=== PATIENT | male | born 1960 | race Caucasian/White ===

== ENCOUNTER 2016-08-20 18:09 | Emergency (ER) | payer OTHER ==
[~2016-08-20] VITALS: Ht 177.8 cm; Wt 78.2 kg
[2016-08-20 18:59] VITALS: Ht 177.8 cm; Wt 78.2 kg
[2016-08-20] MEDS ORDERED: ONDANSETRON 4 MG INJ IV STA (19:28)
[2016-08-20] MEDS ORDERED: SOD CHLORIDE 0.9% 500 ML IV STA (19:28)
[2016-08-20] MEDS ORDERED: KETOROLAC 15 MG INJ IV STA (19:28)
[2016-08-20 19:30] VITALS: BP 120/83; PULSE 92; RESP 20; TEMP 98.9
[2016-08-20] MEDS ORDERED: DICYCLOMINE 10 MG CAP PO ONE (19:30)
[2016-08-20 20:23] LABS: POTASSIUM 3.1 mmol/L (3.5-5.1)
[2016-08-20 20:26] LABS: CREATININE 0.82 mg/dl (0.61-1.24)
[2016-08-20 20:27] LABS: CALCIUM 8.7 mg/dl (8.4-10.2)
[2016-08-20] MEDS ORDERED: DICY10CA60 PO (20:38)
--- NOTE | 2016-08-20 20:43 | ERD ---
ER Documentation Chief Complaint Date/Time DATE: 08/20/16 TIME: 20:40 Chief Complaint ABD PAIN DIARRHEA, HEADACHE SINCE SATURDAY. HPI Very pleasant 55-year-old male who presents to the emergency room with diarrhea. He describes approximately 48 hours of symptoms including loose watery stools, cramping diffuse abdominal pain. At triage he noted headache but denies this to me. He denies any fevers or chills, no chest pain or shortness of breath, no recent travel, sick contacts or antibiotics. ROS All systems reviewed and are negative except as per history of present illness. Medications Home Meds Active Scripts Dicyclomine Hcl* (Bentyl*) 10 Mg Capsule, 10 MG PO QID Y for abdominal cramping , #30 CAP Prov:DOTTY GARCIA MD 08/20/16 Allergies Allergies: Coded Allergies: No Known Allergy (Unverified , 08/20/16) PMhx/Soc History of Surgery: No Anesthesia Reaction: No Hx Neurological Disorder: No Hx Respiratory Disorders: No Hx Cardiac Disorders: No Hx Psychiatric Problems: No Hx Miscellaneous Medical Probl: No Hx Alcohol Use: No Hx Substance Use: No Hx Tobacco Use: No Smoking Status: Never smoker Physical Exam Vitals Vital Signs Date Time Temp Pulse Resp B/P Pulse Ox O2 Delivery O2 Flow Rate FiO2 08/20/16 19:30 98.9 92 20 120/83 98 Room Air 08/20/16 18:59 99.2 102 18 118/73 100 Physical Exam General: Well developed, well nourished, no acute distress Head: Normocephalic, atraumatic. Eyes: Pupils equally reactive, EOM intact ENT: Moist mucous membranes Neck: Supple, no lymphadenopathy Respiratory: Lungs clear bilaterally, no distress Cardiovascular: RRR, no murmurs, rubs, or gallops Abdominal: Soft, non-tender, non-distended, no peritoneal signs, no tenderness at McBurney's point, no pulsatile mass : Deferred MSK: No edema, no unilateral swelling, 5/5 strength Neurologic: Alert and oriented, moving all extremities, normal speech, no focal weakness, no cerebellar signs Skin: No rash Psych: Normal mood Result Diagram: 08/20/161944 Results 24 hrs Laboratory Tests Test 08/20/16 19:45 Anion Gap 16 Blood Urea Nitrogen 13mg/dl Calcium Level 8.7mg/dl Carbon Dioxide Level 27mmol/L Chloride Level 99mmol/L Creatinine 0.82mg/dl Glucose Level 132mg/dl Potassium Level 3.1mmol/L Sodium Level 139mmol/L Current Medications Medications (Trade) Dose Ordered Sig/Max Route PRN Reason Start Time Stop Time Status Last Admin Dose Admin Sodium Chloride (NS) 500 ml @ 500 mls/hr Q1H STAT IV 08/20/16 19:28 08/20/16 20:27 DC 08/20/16 19:44 Ondansetron HCl (Zofran Inj) 4 mg ONCE STAT IV 08/20/16 19:28 08/20/16 19:29 DC 08/20/16 19:44 Ketorolac Tromethamine (Toradol) 15 mg ONCE STAT IV 08/20/16 19:28 08/20/16 19:29 DC 08/20/16 19:44 Dicyclomine HCl (Bentyl) 10 mg ONCE ONCE PO 08/20/16 19:30 08/20/16 19:31 DC 08/20/16 19:44 Procedures/MDM LAB INTERPRETATION: Slight hypokalemia, otherwise no evidence of dehydration MEDICAL DECISION MAKING: The patient presents with signs and symptoms consistent with likely viral diarrheal illness. He has a benign abdominal exam, no fevers. No evidence of significant dehydration. While the patient is 55 years old he has a benign abdominal exam with better alternative diagnosis. I do not believe this is consistent with acute intra-abdominal process. The patient is otherwise well- appearing, well-hydrated. The patient will benefit from symptom control, electrolyte testing to rule out significant dehydration. ER COURSE: The patient was given IV fluids and symptom control medication. The patient feels better. Repeat abdominal exam benign. The patient is safe for discharge. I did discuss return precautions according worsening symptoms, fevers, bloody diarrhea. I kept the patient and/or family informed of laboratory and diagnostic imaging results throughout the emergency room course. DISPOSITION PLAN: We discussed follow up with the patient's primary care doctor within 24 to 48 hours as needed. We also discussed return to the emergency room for worsening symptoms or worsening condition. Outpatient referral: None required Discharge Medications: Bentyl, I did recommend probiotics Departure Diagnosis: Primary Impression: Diarrhea Diarrhea type: unspecified type Qualified Code: R19.7 - Diarrhea, unspecified type Additional Impression: Abdominal cramping Condition: Stable Patient Instructions: Abdominal Pain, Treating Diarrhea Referrals: [facility] YOU HAVE RECEIVED A MEDICAL SCREENING EXAM AND THE RESULTS INDICATE THAT YOU DO NOT HAVE A CONDITION THAT REQUIRES URGENT TREATMENT IN THE EMERGENCY DEPARTMENT. FURTHER EVALUATION AND TREATMENT OF YOUR CONDITION CAN WAIT UNTIL YOU ARE SEEN IN YOUR DOCTORS OFFICE WITHIN THE NEXT 1-2 DAYS. IT IS YOUR RESPONSIBILITY TO MAKE AN APPOINTMENT FOR FOLOW-UP CARE. IF YOU HAVE A PRIMARY DOCTOR --you should call your primary doctor and schedule an appointment IF YOU DO NOT HAVE A PRIMARY DOCTOR YOU CAN CALL OUR PHYSICIAN REFERRAL HOTLINE AT IF YOU CAN NOT AFFORD TO SEE A PHYSICIAN YOU CAN CHOSE FROM THE FOLLOWING [facility] [address] [facility]. [facility] [address] [facility]. [facility] [address] [facility] [address] [facility] [address] [facility]. [facility] [address] [facility]. [facility] YOU HAVE RECEIVED A MEDICAL SCREENING EXAM AND THE RESULTS INDICATE THAT YOU DO NOT HAVE A CONDITION THAT REQUIRES URGENT TREATMENT IN THE EMERGENCY DEPARTMENT. FURTHER EVALUATION AND TREATMENT OF YOUR CONDITION CAN WAIT UNTIL YOU ARE SEEN IN YOUR DOCTORS OFFICE WITHIN THE NEXT 1-2 DAYS. IT IS YOUR RESPONSIBILITY TO MAKE AN APPOINTMENT FOR FOLOW-UP CARE. IF YOU HAVE A PRIMARY DOCTOR --you should call your primary doctor and schedule and appointment IF YOU DO NOT HAVE A PRIMARY DOCTOR YOU CAN CALL OUR PHYSICIAN REFERRAL HOTLINE AT . IF YOU CAN NOT AFFORD TO SEE A PHYSICIAN YOU CAN CHOSE FROM THE FOLLOWING [facility] INSTITUTIONS: [facility] [address] [place] [address] [facility] [address] [place] [address] [facility] + [facility] [address] [place] [address] Additional Instructions: Call your primary care doctor TOMORROW for an appointment during the next 1 WEEK.Tell the departmental secretary that you were referred from this facility.See the doctor sooner or return here if your condition worsens before your appointment time. DOTTY GARCIA MD Aug 20, 2016 20:43
== END 2016-08-20 20:49 | disposition home or self-care (01) ==
LOC: E/R 18:09
DX: R19.7 Diarrhea, unspecified (principal); R10.84 Generalized abdominal pain
CPT/HCPCS: 36415; 80048; 96361; 96374; 96375; 99284; J1885; J2405; J7040

== ENCOUNTER 2016-08-30 13:45 | Inpatient (IN) | payer OTHER ==
[~2016-08-30] VITALS: Ht 177.8 cm; Wt 85.0 kg
[~2016-08-30 13:45] MED LIST: DICY10CA60 PO
[2016-08-30 14:01] VITALS: Ht 177.8 cm; Wt 85.0 kg
[2016-08-30] MEDS ORDERED: SOD CHLORIDE 0.9% 1,000 ML IV STA (15:46)
--- NOTE | 2016-08-30 16:20 | RADRPT ---
PROCEDURE: XR Chest. CLINICAL INDICATION: Shortness of breath. Cerebrovascular accident. TECHNIQUE: Single frontal view. COMPARISON: None. FINDINGS: The lungs are clear. The heart size is normal. There is no pleural effusion. There is no pneumothorax. IMPRESSION: 1. Normal chest radiograph. RPTAT: QQ .Cedric Kwon MD, MD Date Time Electronically viewed and signed by .Cedric Kwon MD, MD on 08/30/2016 16:20 .R/
[2016-08-30] MEDS ORDERED: ONDANSETRON 4 MG INJ IV PRN ×2 (16:30→22:30)
[2016-08-30] MEDS ORDERED: ACETAMINOPHEN 325 MG TAB PO PRN (16:30)
[2016-08-30 16:36] LABS: ADD SCAN DIFF NO
[2016-08-30 16:39] LABS: ADD UMIC NO; URINE BILIRUBIN (Dip) NEGATIVE (NEGATIVE); URINE BLOOD (Dip) NEGATIVE (NEGATIVE); URINE COLOR LT. YELLOW (YELLOW); URINE GLUCOSE (Dip) NEGATIVE (NEGATIVE); URINE KETONES (Dip) NEGATIVE (NEGATIVE); URINE LEUKOCYTE ESTERASE (Dip) NEGATIVE (NEGATIVE); URINE NITRITE (Dip) NEGATIVE (NEGATIVE); URINE TOTAL PROTEIN (Dip) NEGATIVE (NEGATIVE); URINE UROBILINOGEN (Dip) 1.0 E.U./dL (0.1-1.0)
[2016-08-30 16:52] LABS: CHLORIDE 100 mmol/L (97-110); POTASSIUM 4.2 mmol/L (3.5-5.1); SODIUM 143 mmol/L (135-144)
[2016-08-30 16:55] LABS: ANION GAP 17 (8-16); BLOOD UREA NITROGEN 15 mg/dl (7-20); CARBON DIOXIDE 30 mmol/L (21-31); CREATININE 0.69 mg/dl (0.61-1.24); GLUCOSE 90 mg/dl (70-220)
[2016-08-30 16:56] LABS: CALCIUM 9.5 mg/dl (8.4-10.2)
[2016-08-30 16:58] LABS: INR 0.93; PROTIME 12.5 Sec (12.2-14.2)
[2016-08-30 16:59] LABS: PARTIAL THROMBOPLASTIN TIME 30.6 Sec (25.0-35.0)
[2016-08-30 17:09] LABS: TROPONIN-I < 0.012 ng/ml (0.00-0.12)
[2016-08-30 17:18] LABS: BARBITURATES Negative (NEGATIVE)
--- NOTE | 2016-08-30 17:19 | RADRPT ---
PROCEDURE: CT Brain without contrast. CLINICAL INDICATION: Generalized weakness. Possible stroke. TECHNIQUE: CT scan of the brain was performed on a multidetector high-resolution CT scan. Axial im aging was obtained of the brain without contrast administration. Coronal and sagittal reformatted i mages were obtained from the axial source images. Standard CT scan of the head without contrast prot ocols were performed. The total exam CTDI equals 44.9 mGy and the total exam DLP equals 720.23 mGy-cm. One or more of the following dose reduction techniques were used: - Automated exposure control. - Adjustment of the mA and/or kV according to patient size. Use of iterative reconstruction technique. COMPARISON: None. FINDINGS: The ventricular system and peripheral CSF spaces are unremarkable. Negative for intracranial masses hemorrhages or midline shift. There is dense by basal ganglion calcification. There is calcificat ion of the pineal gland. There is a 3 mm left parafalcine left occipital lobe calcification consiste nt with previous inflammatory disease such as cysticercosis. The vazquez-white matter junction is unrem arkable. Paranasal sinuses visualized are unremarkable. Mastoids are unremarkable. The bones and calvarium are intact. IMPRESSION: 1. Left parafalcine left occipital lobe 3 mm calcification consistent with previous inflammatory di sease such as cysticercosis. 2. No evidence of intracranial masses hemorrhages or midline shift. RPTAT:AAJJ Physician Maritza Date Time Electronically viewed and signed by Physician Maritza on 08/30/2016 17:18 BM/
[2016-08-30 17:22] LABS: BENZODIAZEPINES Negative (NEGATIVE); CANNABINOIDS Negative (NEGATIVE); COCAINE Negative (NEGATIVE); OPIATES Negative (NEGATIVE)
[2016-08-30 17:24] LABS: BASOPHILS % 0.3 % (0.0-2.0); EOSINOPHILS % 0.1 % (0.0-7.0); HEMATOCRIT 45.9 % (42.0-52.0); HEMOGLOBIN 15.3 g/dl (14.0-18.0); LYMPHOCYTES # 1.2 10^3/ul (0.8-2.9); LYMPHOCYTES % 12.2 % (15.0-51.0); MEAN CORPUSCULAR HEMOGLOBIN 31.5 pg (29.0-33.0); MEAN CORPUSCULAR HGB CONC 33.3 g/dl (32.0-37.0); MEAN CORPUSCULAR VOLUME 94.6 fl (82.0-101.0); MEAN PLATELET VOLUME 8.5 fl (7.4-10.4); MONOCYTE # 0.3 10^3/ul (0.3-0.9); NEUTROPHIL # 8.4 10^3/ul (1.6-7.5); NEUTROPHILS % 83.9 % (39.0-77.0); PLATELET COUNT 483 10^3/UL (140-415); RED BLOOD COUNT 4.85 10^6/ul (4.70-6.10); RED CELL DISTRIBUTION WIDTH 12.9 % (11.5-14.5)
--- NOTE | 2016-08-30 17:26 | RADRPT ---
PROCEDURE: CT cervical spine without contrast. CLINICAL INDICATION: Bilateral upper extremity weakness. Numbness. TECHNIQUE: Axial imaging was obtained through the cervical spine using a multi-slice CT scanner. [facility] of the cervical spine without contrast protocols were performed. CTDI: 22.17 and DLP: 436.17. One or more of the following dose reduction techniques were used: - Automated exposure control. - Adjustment of the mA and/or kV according to patient size. Use of iterative reconstruction technique. COMPARISON: None. FINDINGS: There is no evidence of fractures or subluxations. The bony mineralization is normal. No focal bon y blastic or lytic lesions. The posterior elements are intact. Those portions the upper lung poor and airway visualized are unremarkable. No evidence of prevertebral soft tissue swelling. There is moderate degenerate disease and spondylosis at the C5-6 and C6-7 disk levels with correspon ding bilateral neural foraminal narrowing and borderline central spinal canal stenosis. No other le vels of neural foraminal narrowing or central spinal canal stenosis. IMPRESSION: 1. No evidence acute fractures or subluxations. 2. Moderate degenerate disease, at the C5-6 and C6-7 disk level there is moderate degenerate diseas e and spondylosis with bilateral neural foraminal narrowing and borderline central spinal canal sten osis. 3. An MRI of the cervical spine may be helpful for further evaluation. RPTAT:AAJJ Physician Maritza Date Time Electronically viewed and signed by Physician Maritza on 08/30/2016 17:26 BM/
--- NOTE | 2016-08-30 17:56 | ERD ---
ER Documentation Chief Complaint Date/Time DATE: 08/30/16 TIME: 17:56 Chief Complaint BOTH HAND NUMBNESS,GENERALIZED BODY WEAKNESS STARTED YESTERDAY HPI Patient is a 55-year-old male with no medical problems who presents with weakness. The patient said that yesterday he lost strength in his lower extremities bilaterally. He says "I could not get my feet off the floor". He then started today with bilateral upper extremity weakness and says "I cannot open my hands. He also says "I cannot walk". Interestingly he was seen last week on August 20 in the emergency department for diarrhea. His weakness started in his legs and then progressed to his arms. He has no fevers. He tried ibuprofen. He denies pain. He does not know the name of his primary doctor. Upon review of old medical records this is his second visit to the ER since August 20 of this year. ROS All systems reviewed and are negative except as per history of present illness. Medications Home Meds Active Scripts Dicyclomine Hcl* (Bentyl*) 10 Mg Capsule, 10 MG PO QID Y for abdominal cramping , #30 CAP Prov:DOTTY GARCIA MD 08/20/16 Allergies Allergies: Coded Allergies: No Known Allergy (Unverified , 08/20/16) PMhx/Soc Medical and Surgical Hx: pt denies Medical Hx, pt denies Surgical Hx History of Surgery: No Anesthesia Reaction: No Hx Neurological Disorder: No Hx Respiratory Disorders: No Hx Cardiac Disorders: No Hx Psychiatric Problems: No Hx Miscellaneous Medical Probl: No Hx Alcohol Use: No Hx Substance Use: No Hx Tobacco Use: No Smoking Status: Unknown if ever smoked FmHx Family History: diabetes Physical Exam Vitals Vital Signs Date Time Temp Pulse Resp B/P Pulse Ox O2 Delivery O2 Flow Rate FiO2 08/30/16 16:40 86 20 126/87 96 Room Air 08/30/16 14:01 98.0 88 18 133/85 98 Physical Exam Const: No acute distress Head: Atraumatic Eyes: Normal Conjunctiva ENT: Normal External Ears, Nose and Mouth. Neck: Full range of motion..~ No meningismus. Resp: Clear to auscultation bilaterally Cardio: Regular rate and rhythm, no murmurs Abd: Soft, non tender, non distended. 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, patient does complain of numbness diffusely Psych: Normal Mood and Affect Result Diagram: 08/30/16 1630 08/30/16 1630 Results 24 hrs Laboratory Tests Test 08/30/16 16:30 08/30/16 16:32 White Blood Count 10.010^3/ul Red Blood Count 4.8510^6/ul Hemoglobin 15.3g/dl Hematocrit 45.9% Mean Corpuscular Volume 94.6fl Mean Corpuscular Hemoglobin 31.5pg Mean Corpuscular Hemoglobin Concent 33.3g/dl Red Cell Distribution Width 12.9% Platelet Count 64798^3/UL Mean Platelet Volume 8.5fl Neutrophils % 83.9% Lymphocytes % 12.2% Monocytes % 3.0% Eosinophils % 0.1% Basophils % 0.3% Nucleated Red Blood Cells % 0.0/100WBC Neutrophils # 8.410^3/ul Lymphocytes # 1.210^3/ul Monocytes # 0.310^3/ul Eosinophils # 0.010^3/ul Basophils # 0.010^3/ul Nucleated Red Blood Cells # 0.010^3/ul Prothrombin Time 12.5Sec Prothrombin Time Ratio 1.0 INR International Normalized Ratio 0.93 Activated Partial Thromboplast Time 30.6Sec Sodium Level 143mmol/L Potassium Level 4.2mmol/L Chloride Level 100mmol/L Carbon Dioxide Level 30mmol/L Anion Gap 17 Blood Urea Nitrogen 15mg/dl Creatinine 0.69mg/dl Glucose Level 90mg/dl Hemoglobin A1c 5.7% Calcium Level 9.5mg/dl Troponin I < 0.012ng/ml Urine Color LT. YELLOW Urine Clarity CLEAR Urine pH 8.0 Urine Specific [place] 1.020 Urine Ketones NEGATIVE Urine Nitrite NEGATIVE Urine Bilirubin NEGATIVE Urine Urobilinogen 1.0 E.U./dL Urine Leukocyte Esterase NEGATIVE Urine Hemoglobin NEGATIVE Urine Glucose NEGATIVE% Urine Total Protein NEGATIVE Urine Opiates Screen Negative Urine Barbiturates Negative Urine Amphetamines Screen Negative Urine Benzodiazepines Screen Negative Urine Cocaine Screen Negative Urine Cannabinoids Negative Current Medications Medications (Trade) Dose Ordered Sig/Max Route PRN Reason Start Time Stop Time Status Last Admin Dose Admin Sodium Chloride (NS) 1,000 ml @ 1,000 mls/hr Q1H STAT IV 08/30/16 15:46 08/30/16 16:45 DC 08/30/16 15:46 Ondansetron HCl (Zofran Inj) 4 mg BRIDGE ORDER PRN IV NAUSEA AND/OR VOMITING 08/30/16 16:30 08/31/16 16:29 Acetaminophen (Tylenol Tab) 650 mg ER BRIDGE PRN PO MILD PAIN/FEVER 08/30/16 16:30 08/31/16 16:29 Procedures/MDM EKG read by me: Rate/Rhythm: Regular rate and rhythm at a normal rate Intervals: Normal Impression: No evidence of ischemia or arrhythmia Chest x-ray negative per radiology. CT brain shows no intracranial hemorrhage or mass per radiology. CT cervical spine shows no fracture per radiology. 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 He started with a diarrhea 10 days ago which was likely a viral illness which may have caused the Guillain-Butt syndrome. He had weakness of the lower extremities bilaterally which now has progressed to his bilateral upper extremities. At this point I doubt stroke, intracranial hemorrhage, or intracranial mass. I do believe that admission is appropriate. The patient has [employer] insurance and I spoke with Dr. Alvarez who will admit the patient to a medical surgical bed. I also spoke with Dr. Tate from neurology. Departure Diagnosis: Primary Impression: Guillain-Franklin syndrome Additional Impression: Numbness Condition: CHIARA Orourke MD Aug 30, 2016 17:56
--- NOTE | 2016-08-30 20:02 | SP ---
DATE OF PROCEDURE: REFERRING PHYSICIAN: the ER physician. HISTORY OF PRESENT ILLNESS: The patient is a 55-year-old male who was admitted with 2 days of gener alized weakness, both lower and upper extremities, associated with gait difficulty. 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 For the last 2 days he got worsening of his weakness bilateral upper and lower extremities in which he cannot stand up, he cannot walk. In which the patient came to the emergency room for more evaluation and treatment. The patient ment ioned that a week ago, he had diarrhea, in which the patient he checked to the emergency room and di scharged. On 2 days ago, when he started to have weakness, the patient was admitted for more evalua tion and treatment. PHYSICAL EXAMINATION: GENERAL: Today, the patient is alert, awake, oriented for time, place, and person. NEUROLOGIC: Normal speech and normal language. CRANIAL NERVES: Cranial nerve II: Pupils equal on both sides, reactive to light. Cranial nerves I II, IV, and : Extraocular muscles intact. No nystagmus. Cranial nerve V: Equal sensation to fa ce. Cranial nerve VII: Symmetrical face. Cranial nerve VIII: Equal hearing. Cranial nerve IX, X : Elevates palate. XI: Elevates shoulder 5/5. Cranial nerve XII: With straight tongue. HEART: Regular rate and rhythm. LUNGS: Equal breath sounds. ABDOMEN: Soft, relaxed, nondistended. No tenderness. MOTOR: The patient is quadriplegic with scored 3/5 of bilateral upper and lower extremities. SENSA TION: Equal on both sides. COORDINATION: Intact with weakness. ASSESSMENT AND PLAN: 1. The patient is a 55-year-old with new onset of quadriplegia. 2. Possibility of underlying Guillain-Peru syndrome, acute inflammatory demyelinating neuropathy. Will start the patient on IVIG 400 mg/kg for 5 days and see how the patient responds for that. Ask for him for physical therapy and occupational therapy. 3. We will order for him an MRI over his spine, especially cervical spine, to see any spinal cord l esion. Could be a mimic for Guillain-Peru syndrome for this patient. 4. Keep the patient under telemetry eval or ICU and monitor his pulmonary function tests to see abo ut his respiratory muscles. 5. Keep the patient under deep venous thrombosis prophylaxis as well as decubitus ulcer prophylaxis . Again, thank you for asking me to see the patient with you. Dictated By: CANDIEC BATISTA/SHOAIB Conf#: [id number] DID#: [id number]
--- NOTE | 2016-08-30 22:15 | QN ---
Documentation Comment [id number] FRANCISCO GILMORE MD Aug 30, 2016 22:15
[2016-08-30] MEDS ORDERED: NACL 0.9% 3 ML SYG IV SCH (22:30)
[2016-08-30] MEDS ORDERED: DOCUSATE SODIUM 100 MG CAP PO PRN (22:30)
[2016-08-30] MEDS: NS + KCL 20 MEQ 1,000 ML IV SCH (23:57)
[2016-08-31] MEDS: PANTOPRAZOLE 40 MG INJ IV SCH (05:45)
--- NOTE | 2016-08-31 07:30 | HP ---
DATE OF ADMISSION: 08/30/2016 HISTORY OF PRESENT ILLNESS: A 55-year-old male with no significant past medical history claims that he presented to this hospital on 08/20 with diarrhea and gastroenteritis symptoms. The patient at that point had symptoms, and the patient's diarrhea has resolved, but the patient now has developed severe weakness of both upper and lower extremities to the point he is unable to walk and presented to this hospital for further management. Seen in the emergency room, discussed with Dr. Randhawa. The patient's WBC 10, hematocrit 45.9, platelet count of 483. Sodium 143, potassium 4.2. The patient's urine toxicology is negative. UA is negative. The patient had brain CT scan done. Left parafalcine, left occipital lobe 3 mm calcification consistent with previous inflammatory disease such as cysticercosis. No evidence of intracranial masses, hemorrhage or midline shift. Cervical spine shows no evidence of acute fracture or subluxation, moderate degenerative disease at the C5-C6, C6-C7 disk level. There is moderate degenerative disk disease and spondylosis foraminal narrowing and borderline central spinal canal stenosis. The patient's chest x-ray is negative. LABORATORY DATA: Potassium 4.2 and hematocrit 45.9. PAST MEDICAL HISTORY: Status post _. No diabetes, hypertension. ALLERGY HISTORY: NEGATIVE. FAMILY HISTORY: Negative. SOCIAL HISTORY: Negative. MEDICATIONS see list: REVIEW OF SYSTEMS: HEENT: Unremarkable. RESPIRATORY: Unremarkable. CARDIOVASCULAR: Unremarkable. ABDOMEN: Unremarkable. EXTREMITIES: Unremarkable. CENTRAL NERVOUS SYSTEM: The patient has weakness of both upper, lower extremities. Unable to move and walk. PHYSICAL EXAMINATION: GENERAL: The patient is awake, alert, not in any acute respiratory distress. VITAL SIGNS: As mentioned above. HEENT: Head is atraumatic, normocephalic. Pupils are equal, reactive to light. NECK: Supple. There is no JVD. LUNGS: Clear. CARDIOVASCULAR: S1, S2 are normal. ABDOMEN: Soft, nontender. Bowel sounds present. No palpable mass. EXTREMITIES: There is no cyanosis, clubbing or edema. CENTRAL NERVOUS SYSTEM: The patient is awake, alert. Sensation is intact to both upper and lower extremities, but strength in both upper and lower extremities is decreased. IMPRESSION: 1. Acute weakness of both upper, lower extremities. Rule out Guillain-Hyndman syndrome, rule out cervical myelopathy. 2. The patient status post gastroenteritis. Will rule out viral etiology. PLAN: Obtain neurology consultation. CT of the cervical spine will be obtained. The patient will have IV fluid; given DVT prophylaxis, peptic ulcer disease prophylaxis. Other neurological recommendation and workup per Dr. Goodman , who has been informed by Dr. Randhawa of this patient's admission. Dictated By: FRANCISCO GILMORE MD BS/NTS Conf#: [id number] DID#: [id number] [facility]
--- NOTE | 2016-08-31 11:21 | QN ---
Documentation Comment Dr. Catherine, the covering neurologist call me. He would like IVIG ordered for this patient given concern for Guillain-Butt. He recommended 400 mg/kg per dose daily for 5 days. The order has been entered for him. He also recommends MRI imaging of the C, T, L-spine. This is also been ordered. The patient continues to board in the emergency room. DOTTY GARCIA MD Aug 31, 2016 11:21
[2016-08-31] MEDS ORDERED: IMMUNE GLOBULIN (HUMAN) 6 GM INJ IV SCH (11:30)
[2016-08-31 13:08] VITALS: TEMP 99
[2016-08-31 13:37] VITALS: BP 117/73; RESP 20
[2016-08-31 14:00] VITALS: BP 117/73; PULSE 83; RESP 17
--- NOTE | 2016-08-31 15:38 | PN ---
Date/Time of Note Date/Time of Note DATE: 08/31/16 TIME: 15:34 Assessment/Plan VTE Prophylaxis VTE Prophylaxis Intervention: SCD's Lines/Catheters IV C[facility]ter Type (from [facility]): Peripheral IV Urinary Cath still in place: No Assessment/Plan Chief Complaint/Hosp Course 1. Acute weakness of both upper, lower extremities. Rule out Guillain-[place] syndrome, rule out cervical myelopathy. 2. The patient status post gastroenteritis. Will rule out viral etiology, Dr Segura saw the pt Problems: Assessment/Plan 1. DVT prophylaxis 2. Antiviral meds 3. Monitor respiratory drive and heart rate Subjective 24 Hr Interval Summary Constitutional: other (weakness) Eyes: no complaints ENT: no complaints Respiratory: no complaints Cardiovascular: no complaints Gastrointestinal: no complaints Genitourinary: no complaints Musculoskeletal: other (weakness), restricted range of motion Skin: no complaints Exam/Review of Systems Vital Signs Vitals Vital Signs Date Time Temp Pulse Resp B/P Pulse Ox O2 Delivery O2 Flow Rate FiO2 08/31/16 13:37 98.6 87 20 117/73 95 08/31/16 13:08 Room Air Intake and Output 08/30/16 08/30/16 08/31/16 15:00 23:00 07:00 Output Total 250 ml Balance -250 ml Exam Constitutional: alert, oriented Psych: no complaints Head: atraumatic, normocephalic Eyes: nl conjunctiva ENMT: nl external ears & nose, nl lips & teeth, nl nasal mucosa & septum Respiratory: clear to auscultation, normal air movement Cardiovascular: regular rate and rhythm Gastrointestinal: soft Genitourinary - Male: nl penis Musculoskeletal: muscle weakness, range of motion (passive only) Neurological: reflexes (decresed to I) Skin: nl turgor Results Result Diagram: 08/30/16 1630 08/30/16 1630 Results 24 hrs Laboratory Tests Test 08/30/16 16:30 08/30/16 16:32 08/30/16 18:53 White Blood Count 10.0 Red Blood Count 4.85 Hemoglobin 15.3 Hematocrit 45.9 Mean Corpuscular Volume 94.6 Mean Corpuscular Hemoglobin 31.5 Mean Corpuscular Hemoglobin Concent 33.3 Red Cell Distribution Width 12.9 Platelet Count 483 H Mean Platelet Volume 8.5 Neutrophils % 83.9 H Lymphocytes % 12.2 L Monocytes % 3.0 Eosinophils % 0.1 Basophils % 0.3 Nucleated Red Blood Cells % 0.0 Neutrophils # 8.4 H Lymphocytes # 1.2 Monocytes # 0.3 Eosinophils # 0.0 Basophils # 0.0 Nucleated Red Blood Cells # 0.0 Prothrombin Time 12.5 Prothrombin Time Ratio 1.0 INR International Normalized Ratio 0.93 Activated Partial Thromboplast Time 30.6 Sodium Level 143 Potassium Level 4.2 Chloride Level 100 Carbon Dioxide Level 30 Anion Gap 17 H Blood Urea Nitrogen 15 Creatinine 0.69 Glucose Level 90 Hemoglobin A1c 5.7 Calcium Level 9.5 Troponin I < 0.012 Urine Color LT. YELLOW Urine Clarity CLEAR Urine pH 8.0 Urine Specific Lit[place] 1.020 Urine Ketones NEGATIVE Urine Nitrite NEGATIVE Urine Bilirubin NEGATIVE Urine Urobilinogen 1.0 E.U./dL Urine Leukocyte Esterase NEGATIVE Urine Hemoglobin NEGATIVE Urine Glucose NEGATIVE Urine Total Protein NEGATIVE Urine Opiates Screen Negative Urine Barbiturates Negative Urine Amphetamines Screen Negative Urine Benzodiazepines Screen Negative Urine Cocaine Screen Negative Urine Cannabinoids Negative Bedside Glucose 125 Medications Medications Current Medications Potassium Chloride/Sodium Chloride (NS-KCl 20 Meq) 1,000 ml @ 50 mls/hr Q20H IV Last administered on 08/30/16 23:57; Admin Dose 50 MLS/HR; Start 08/30/16 at 22:23 Ondansetron HCl (Zofran Inj) 4 mg Q6H PRN IV NAUSEA AND/OR VOMITING; Start at 22:30 Acetaminophen (Tylenol Tab) 650 mg Q6H PRN PO PAIN LEVEL 1-3 OR FEVER; Start at 22:30 Docusate Sodium (Colace) 100 mg Q12H PRN PO CONSTIPATION; Start 08/30/16 at 22: 30 Pantoprazole (Protonix Iv) 40 mg DAILY@06 IV Last administered on 08/31/16 05: 45; Admin Dose 40 MG; Start 08/31/16 at 06:00 Immune Globulin (Carimune Nf) 34 gm DAILY IV ; Start 08/31/16 at 11:30; Stop at 11:29; Status CHRIS HURT Aug 31, 2016 15:38
[2016-08-31] MEDS: NS + KCL 20 MEQ 1,000 ML IV SCH (17:38)
[2016-08-31 19:54] VITALS: PULSE 75
[2016-08-31 20:00] VITALS: BP 130/85; RESP 16
[2016-08-31 20:06] VITALS: PULSE 93
--- NOTE | 2016-08-31 23:20 | RADRPT ---
PROCEDURE: MR Thoracic Spine. CLINICAL INDICATION: Weakness and numbness. TECHNIQUE: An MRI of the thoracic spine was performed on a 1.5 starr scanner utilizing the followi ng sequences: Sagittal and axial T2 weighted, axial gradient echo, sagittal T1 weighted and sagittal STIR. COMPARISON: No prior studies are available for comparison. FINDINGS: The thoracic kyphosis is maintained. The vertebral body and displaced heights are normal. The nedra ow signal intensity is grossly unremarkable. Foci of T1 and T2 signal hyperintensity within the T 9 and T12 most compatible with vertebral body hemangiomas. No acute fracture or subluxation is seen. The thoracic spinal cord is normal in size and signal intensity. No central canal or neural foramin al narrowing is seen. No paravertebral fluid collection or mass is seen. The visualized portions o f the chest and upper abdomen are grossly unremarkable. IMPRESSION: Unremarkable MRI of the thoracic spine. RPTAT:AAJJ Physician Tiesha Date Time Electronically viewed and signed by Physician Tiesha on 08/31/2016 23:20 TENZIN/
--- NOTE | 2016-08-31 23:30 | RADRPT ---
PROCEDURE: MR Cervical Spine. CLINICAL INDICATION: Bilateral hand weakness. TECHNIQUE: An MRI of the cervical spine was performed on a 1.5 starr scanner utilizing the follow ing sequences: Sagittal and axial T1 weighted, sagittal and axial T2 weighted, sagittal T2 weighted with fat saturation, and axial GRE. COMPARISON: No prior studies are available for comparison. FINDINGS: The visualized posterior fossa contents and brainstem are unremarkable. Normal caliber cervical spi nal cord without intramedullary signal abnormality or syringohydromyelia. The vertebral bodies have normal in height and marrow signal. Preservation of normal cervical lordosis.. The craniocervical junction is unremarkable. C2-3: The disk is normal in height. Fatty marrow degeneration of C2. No disk protrusion . The centr al canal and foramina are adequately patent. C3-4: Disk desiccation and mild loss of disk height disk bulging and right uncovertebral joint spurr ing resulting in moderate right foraminal stenosis without central canal or foraminal stenosis. Mil d left facet joint arthropathy. C4-5: Minimal disk bulging and posterior spondylitic ridging. Uncovertebral joint hypertrophy and hy pertrophy of the facet joints resulting in moderate bilateral foraminal stenosis without central can al stenosis. C5-6: Disk desiccation loss of disk height with circumferential disk bulge and anterior endplate spu rring. Pending degenerative in plate changes. Bilateral uncovertebral joint hypertrophy and mild t o moderate bilateral facet joint arthropathy. Hypertrophy and flavum. This results in severe bilat eral foraminal stenosis and moderate to severe central canal stenosis measuring 6.5 mm in AP dimensi on. C6-7: Disk desiccation and loss of disk height with a partial disk bulging and endplate spurring. F atty degenerative endplate. Broad-based central to left paracentral disk protrusion measuring 12 by 3 mm in AP dimension resulting in moderate to severe central canal stenosis of 6.5 mm asymmetric to the left. Bilateral uncovertebral joint hypertrophy greater on the left. Moderate facet joint arthr opathy resulting in severe bilateral foraminal stenosis left greater than right. C7-T1: The disk is normal in heights. No disk bulge or protrusion. The central canal and foramina ar e adequately patent. No paravertebral soft tissue abnormality. IMPRESSION: 1. Broad-based central to left paracentral disk protrusion at C6-C7 resulting in moderate to severe central canal stenosis and severe bilateral foraminal stenosis. 2. Degenerative disk and spondylitic changes resulting in moderate to severe central canal stenosis and mild to moderate bilateral foraminal stenosis. 3. Multilevel degenerative disk and spondylitic changes resulting in varying degrees of central can al and foraminal stenosis from C3-C4 through C6-C7 as described in detail above. 4. Normal cervical spinal cord signal without syringohydromyelia. RPTAT:AAJJ Vaibhav Huynh Physician Date Time Electronically viewed and signed by Physician Tiesha on 08/31/2016 23:30 TENZIN/
--- NOTE | 2016-08-31 23:36 | RADRPT ---
PROCEDURE: MRI lumbar spine CLINICAL INDICATION: Pain and paresthesias. TECHNIQUE: An MRI of the lumbar spine was performed on a 1.5 starr scanner utilizing the following sequences: Sagittal and axial T1 weighted, sagittal and dual echo axial T2 weighted, and sagittal T 2 weighted with fat saturation. COMPARISON: None. FINDINGS: There is a normal lordosis of the lumbar spine. Small vertebral body hemangiomas at T12. No vertebra l body subluxation is evident. The vertebral bodies are normal in height and signal intensity. The c onus medullaris is visible at the L1 level, and is normal in appearance. T12 - L1: The disk is normal in appearance. The central canal and foramina are adequately patent. L1 - L2: The disk is normal in appearance. The central canal and foramina are adequately patent. L2 - L3: Mild disk desiccation with loss of disk height. Small facet joint effusions. No disk pro trusion. The central canal and foramina are adequately patent. L3 - L4: Disk desiccation without loss of disk height. No disk protrusion or stenosis. Small to m oderate bilateral facet joint effusions and moderate facet joint arthropathy. The central canal and foramina are adequately patent. L4 - L5: Disk desiccation with minimal loss of disk height. Mild grade 1 anterolisthesis of the 2 mm of the L4-L5 with circumferential disk bulging and small broad-based central disk protrusion with horizontal annular fissure. Millimeters in AP dimension of facet joint effusions. L5 - S1: Disk desiccation and loss of disk height fatty degenerative endplate changes of L5. No di sk protrusion or stenosis. Small facet joint effusions. No paraspinal soft tissue abnormality. IMPRESSION: 1. Degenerative disk space narrowing and desiccation at L5-S1 with fatty degenerative endplate rodriguez es small central disk protrusion. No significant central canal or foraminal stenosis. 2. Mild disk desiccation and loss of disk height with grade 1 anterolisthesis of for L5 of 2 mm wit hout disk protrusion or stenosis. 3. Mild multilevel facet joint arthropathy from L2-L3 through L5-S1. RPTAT: AVH Vaibhav Huynh, Physician Date Time Electronically viewed and signed by Physician Tiesha on 08/31/2016 23:36 TENZIN/
[2016-09-01] VITALS (12 sets, daily range): BP systolic 102–124; BP diastolic 63–78; PULSE 66–89; RESP 12–18
[2016-09-01] MEDS: IMMUNE GLOBULIN IV SCH ×2 (00:10→23:25)
[2016-09-01] MEDS: WATER STERILE FOR IV SCH ×2 (00:10→23:25)
--- NOTE | 2016-09-01 05:41 | CONS ---
DATE OF ADMISSION: 08/30/2016 DATE OF CONSULTATION: REFERRING PHYSICIAN: Dr. Alvarez HISTORY OF PRESENT ILLNESS: The patient is a 55-year-old with progressive bilateral upper and lower extremity weakness. The patient had abdominal pain and diarrhea a week prior to his admission in [facility] the patient came to emergency room and left. The patient came with bilateral weakness in which I ordered for him MRI over the spine to evaluation as well as will order for him a lumbar puncture for evaluation of his protein levels as well as the patient might need a nerve conduction study. The patient is still at the ER. PHYSICAL EXAMINATION: GENERAL: On exam today, the patient is alert, awake, following simple commands. CRANIAL NERVES: Cranial nerve II; Pupils equal on both sides, reactive to light. Cranial nerves III , IV, and : Extraocular muscles intact. Cranial nerve V: Equal sensation to face. Cranial nerv e VII: Symmetrical face. Cranial nerve VIII: Decreased hearing bilaterally. Cranial nerve X: El evates palate. Cranial nerve XI: Elevates shoulder 5/5. Cranial nerve XII: With straight tongue. MOTOR: 3 to 4/5. GAIT: Could not assess. HEART: Regular rate and rhythm. LUNGS: Equal breath sounds. ABDOMEN: Soft, relaxed, nondistended, nontender. ASSESSMENT AND PLAN: 1. The patient is a 55-year-old with the possibility of underlying Guillain-[place] syndrome. I am g oing to start the patient on IVIG as well as acute physical therapy and rehabilitation. 2. We will follow up the patient under telemetry for autonomic dysfunction. 3. We will follow up the patient with MRI of his spine to evaluate for transverse myelitis. 4. We will keep the patient under deep venous thrombosis prophylaxis and decubitus ulcer prophylaxi s. Again, thank you for asking me to see the patient with you. Dictated By: CANDICE BATISTA/SHOAIB Conf#: [id number] DID#: [id number]
[2016-09-01] MEDS: PANTOPRAZOLE 40 MG INJ IV SCH (06:00)
[2016-09-01] MEDS: NS + KCL 20 MEQ 1,000 ML IV SCH (14:23)
--- NOTE | 2016-09-01 15:04 | CONS ---
DATE OF ADMISSION: 08/30/2016 DATE OF CONSULTATION: HISTORY OF PRESENT ILLNESS: The patient is a 55-year-old admitted to [facility] w ith progressive weakness, which happened last week and a few days in which the patient got worse, in which he is quadriplegic. We started the patient on IVIG. The patient had an order for an imaging study. The patient has bilateral foraminal stenosis and cervical stenosis with multiple degenerati ve disk disease especially at the cervical area, in which we are going to order for him a neurosurgi jose luis consultation for that. We will keep the patient under physical therapy and occupational therapy . We will continue the patient on IVIG PHYSICAL EXAMINATION: GENERAL: On exam today, the patient is alert, awake, oriented to time, place and person. NEUROLOGIC: Normal speech and normal language. Cranial nerve II: Pupils equal on both sides, reac tive to light. Cranial nerves III, IV and : Extraocular muscles intact. No nystagmus. Cranial nerve V: Equal sensation to face. Cranial nerve VII: Symmetrical face. Cranial nerve VIII: Decr eased hearing bilaterally. Cranial nerves IX and X: Elevates palate. Cranial nerve XI: Elevates shoulder 5/5. Cranial nerve XII: With straight tongue. Motor: Bilateral upper and lower extremi ty is 4/5 in which the patient has some improvement since he came per his family. ASSESSMENT AND PLAN: 1. The fact that the patient had diarrhea before followed by the generalized weakness, more G uillain-[place] syndrome, I am going to order for him a lumbar puncture. 2. Possibility of underlying cervical radiculopathy with spinal stenosis; however, there is no myel opathy reported by imaging MRI. We will follow up the patient with neurosurgery consult for more ev aluation and comment about his status. 3. We will keep the patient under physical therapy and occupational therapy for now and keep the pa tient under deep venous thrombosis prophylaxis as well as decubitus ulcer prophylaxis. Again, thank you for asking me to see the patient with you. Dictated By: CANDICE BATISTA/SHOAIB Conf#: [id number] DID#: [id number]
--- NOTE | 2016-09-01 17:34 | PN ---
Date/Time of Note Date/Time of Note DATE: 09/01/16 TIME: 17:28 Assessment/Plan VTE Prophylaxis VTE Prophylaxis Intervention: SCD's Lines/Catheters IV Catheter Type (from Nrsg): Peripheral IV Central line still needed: Yes Urinary Cath still in place: No Assessment/Plan Chief Complaint/Hosp Course 1. Acute weakness of both upper, lower extremities. Rule out Guillain-[place] syndrome, rule out cervical myelopathy. MRI done improved 2. The patient status post gastroenteritis. Dr Segura saw the pt Problems: Assessment/Plan 1. Contnue antiviral meds Subjective 24 Hr Interval Summary Constitutional: improved Eyes: no complaints ENT: no complaints Musculoskeletal: other (ipr) Neurologic: no complaints Exam/Review of Systems Vital Signs Vitals Vital Signs Date Time Temp Pulse Resp B/P Pulse Ox O2 Delivery O2 Flow Rate FiO2 09/01/16 16:21 98.2 75 18 119/78 98 08/31/16 14:00 Room Air Intake and Output 08/31/16 08/31/16 09/01/16 15:00 23:00 07:00 Intake Total 600 ml 550 ml Output Total 400 ml Balance 200 ml 550 ml Exam Constitutional: alert Psych: no complaints Head: normocephalic Eyes: nl conjunctiva Cardiovascular: regular rate and rhythm Gastrointestinal: soft Genitourinary - Male: nl penis Extremities: other Results Result Diagram: 08/30/16 1630 08/30/16 1630 Medications Medications Current Medications Potassium Chloride/Sodium Chloride (NS-KCl 20 Meq) 1,000 ml @ 50 mls/hr Q20H IV Last administered on 08/31/16 17:38; Admin Dose 50 MLS/HR; Start 08/30/16 at 22:23 Ondansetron HCl (Zofran Inj) 4 mg Q6H PRN IV NAUSEA AND/OR VOMITING; Start at 22:30 Acetaminophen (Tylenol Tab) 650 mg Q6H PRN PO PAIN LEVEL 1-3 OR FEVER; Start at 22:30 Docusate Sodium (Colace) 100 mg Q12H PRN PO CONSTIPATION; Start 08/30/16 at 22: 30 Pantoprazole 40 mg 40 mg DAILY@06 IV Last administered on 08/31/16 05:45; Admin Dose 40 MG; Start 08/31/16 at 06:00 Immune Globulin/ Sterile Water (Carimune Nf/ Water Sterile For Inj) 850 ml @ 60 mls/hr Q24H IV Last administered on 09/01/16 00:10; Admin Dose 60 MLS/HR; Start 08/31/16 at 23:30; Stop 09/05/16 at 13:39 CHRIS HERNANDEZ Sep 01, 2016 17:34
[2016-09-01] MEDS: ACETAMINOPHEN 325 MG TAB PO PRN (23:26)
[2016-09-02] VITALS (14 sets, daily range): BP systolic 114–145; BP diastolic 75–89; PULSE 67–91; RESP 18–20
[2016-09-02] MEDS: PANTOPRAZOLE 40 MG INJ IV SCH (06:20)
[2016-09-02] MEDS: NS + KCL 20 MEQ 1,000 ML IV SCH (10:19)
--- NOTE | 2016-09-02 16:37 | PN ---
Date/Time of Note Date/Time of Note DATE: 09/02/16 TIME: 16:36 Assessment/Plan VTE Prophylaxis VTE Prophylaxis Intervention: other Lines/Catheters IV Catheter Type (from Nrs): Peripheral IV Urinary Cath still in place: No Assessment/Plan Chief Complaint/Hosp Course POSS GBSYNDROME DDD PLAN PER NEURO Problems: Subjective 24 Hr Interval Summary ENT: no complaints Respiratory: no complaints Cardiovascular: no complaints Neurologic: other (WEAKNESS IS BETTER) Exam/Review of Systems Vital Signs Vitals Vital Signs Date Time Temp Pulse Resp B/P Pulse Ox O2 Delivery O2 Flow Rate FiO2 09/02/16 16:32 98.0 86 18 127/89 89 08/31/16 14:00 Room Air Intake and Output 09/01/16 09/01/16 09/02/16 15:00 23:00 07:00 Intake Total 800 ml 350 ml Balance 800 ml 350 ml Exam Respiratory: clear to auscultation Cardiovascular: regular rate and rhythm Gastrointestinal: soft Musculoskeletal: nl extremities to inspection Extremities: normal pulses Results Result Diagram: 08/30/16 1630 08/30/16 1630 Medications Medications Current Medications Potassium Chloride/Sodium Chloride (NS-KCl 20 Meq) 1,000 ml @ 50 mls/hr Q20H IV Last administered on 09/02/16 10:19; Admin Dose 50 MLS/HR; Start 08/30/16 at 22:23 Ondansetron HCl (Zofran Inj) 4 mg Q6H PRN IV NAUSEA AND/OR VOMITING; Start at 22:30 Acetaminophen (Tylenol Tab) 650 mg Q6H PRN PO PAIN LEVEL 1-3 OR FEVER Last administered on 09/01/16 23:26; Admin Dose 650 MG; Start 08/30/16 at 22:30 Docusate Sodium (Colace) 100 mg Q12H PRN PO CONSTIPATION; Start 08/30/16 at 22: 30 Pantoprazole 40 mg 40 mg DAILY@06 IV Last administered on 09/02/16 06:20; Admin Dose 40 MG; Start 08/31/16 at 06:00 Immune Globulin/ Sterile Water (Carimune Nf/ Water Sterile For Inj) 850 ml @ 60 mls/hr Q24H IV Last administered on 09/01/16 23:25; Admin Dose 60 MLS/HR; Start 08/31/16 at 23:30; Stop 3/29/17 at 13:39 FRANCISCO GILMORE MD Sep 02, 2016 16:37
--- NOTE | 2016-09-02 17:39 | SP ---
DATE OF PROCEDURE: REFERRING PHYSICIAN: Dr. Alvarez Thank you for asking me to see the patient with you. HISTORY OF PRESENT ILLNESS: The patient is a 55-year-old male who was admitted to [facility] with bilateral upper and lower extremity weakness with quadriparesis, in which the patie nt had diarrhea in the past week prior in which the patient getting worse over time, and which IVIG is started PHYSICAL EXAMINATION: GENERAL: The patient is alert, awake, oriented, following simple commands. CRANIAL NERVES: Cranial nerve II: Pupils equal on both sides, reactive to light. Cranial nerves I II, IV, and : Extraocular muscles intact. Cranial nerve V: Equal sensation to face. Cranial ne rve VII: Symmetrical face. Cranial nerve VIII: Decreased hearing bilaterally. Cranial nerve X: Elevates palate. Cranial XI: Elevates shoulder 5/5. Cranial nerve XII: With straight tongue. 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 Bilateral upper extremity is scored 4/5, bilateral lower extremi ty scored 4/5. GAIT: Difficult to balance himself with ambulation. ASSESSMENT AND PLAN: 1. The patient is a 55-year-old male with a history of underlying Guillain-[place] syndrome. We star jaky him on IVIG and will keep the patient under telemetry from now. 2. Lumbosacral cervical area with some stenosis. Follow up the patient with the neurosurgeon for m ore evaluation and treatment. 2. Bilateral upper and lower extremity weakness. Follow up the patient with physical therapy and r ehabilitation. 3. I counseled the patient and his daughter about his condition, the status and the medication and treatment and side effect. Again, thank you for asking me to see the patient with you. Dictated By: CANDICE BATISTA/SHOAIB Conf#: [id number] DID#: [id number]
[2016-09-02] MEDS: IMMUNE GLOBULIN IV SCH (23:31)
[2016-09-02] MEDS: WATER STERILE FOR IV SCH (23:31)
[2016-09-03] VITALS (11 sets, daily range): BP systolic 98–137; BP diastolic 50–85; PULSE 60–91; RESP 18–20
[2016-09-03] MEDS: PANTOPRAZOLE (EC) 40 MG TAB PO SCH (06:09)
[2016-09-03] MEDS: NS + KCL 20 MEQ 1,000 ML IV SCH (08:35)
[2016-09-03] MEDS: HYDROCODONE/APAP (5/325) TAB PO PRN ×2 (10:32→23:33)
--- NOTE | 2016-09-03 17:54 | SP ---
DATE OF PROCEDURE: 09/03/2016 REFERRING PHYSICIAN: Dr. Antonio Alvarez: Thank you for asking me to see the patient in followup. HISTORY OF PRESENT ILLNESS: The patient is a 55-year-old admitted to [facility] w ith progressive bilateral upper and lower extremity weakness which started this week. However, the patient a week prior had severe diarrhea in which the patient was admitted to [facility] for more evaluation and treatment. On exam today, the patient is alert, awake, oriented to t sincere, place and person. CRANIAL NERVES: Cranial nerve II: Pupils equal on both sides, reactive to light. Cranial nerves I II, IV and : Extraocular muscles intact. Cranial nerve V: Equal sensation to face. Cranial ner ve VII: Symmetrical face. Cranial nerve VIII: Equal hearing bilaterally. Cranial nerves IX and X : Elevates palate. Cranial nerve XI: Elevates shoulder 5/5. Cranial nerve XII: With straight to ngue. MOTOR: Decreased bilateral upper and lower extremity. He can move against gravity but is still wea k with some improvement compared to the previous days. Gait with difficult ambulation. ASSESSMENT AND PLAN 1. The patient is 55 years old with underlying Guillain-[place] who continues who continues on IVIG f or 5 days and follow up the patient with telemetry. 2. Cervical radiculopathy with stenosis which the patient might have an MRI. We might follow up th e patient with neurosurgery for more evaluation and treatment. 3. Bilateral upper and lower extremity weakness. Keep the patient under physical medicine and the rehab. 4. Counseling the patient about Guillain-[place] as well as cervical radiculopathy for more evaluatio n and treatment down the road. Again, thank you for asking me to see the patient with you. Dictated By: CANDICE BATISTA/SHOAIB Conf#: [id number] DID#: [id number]
--- NOTE | 2016-09-03 18:44 | PN ---
Date/Time of Note Date/Time of Note DATE: 09/03/16 TIME: 18:43 Assessment/Plan VTE Prophylaxis VTE Prophylaxis Intervention: other Lines/Catheters IV Catheter Type (from Nrs): Peripheral IV Urinary Cath still in place: No Assessment/Plan Chief Complaint/Hosp Course POSS GBSYNDROME DDD PLAN PER NEURO ivig Problems: Subjective 24 Hr Interval Summary Subjective hx not possible: other (feeling better) Cardiovascular: no complaints Gastrointestinal: no complaints Exam/Review of Systems Vital Signs Vitals Vital Signs Date Time Temp Pulse Resp B/P Pulse Ox O2 Delivery O2 Flow Rate FiO2 09/03/16 16:27 98.1 72 20 137/82 96 09/03/16 04:00 Room Air Intake and Output 09/02/16 09/02/16 09/03/16 15:00 23:00 07:00 Intake Total 1280 ml 350 ml Output Total 1000 ml Balance 280 ml 350 ml Exam Respiratory: clear to auscultation Cardiovascular: regular rate and rhythm Gastrointestinal: soft Musculoskeletal: muscle weakness, nl extremities to inspection Neurological: other (weakness+) Results Result Diagram: 08/30/16 1630 08/30/16 1630 Medications Medications Current Medications Potassium Chloride/Sodium Chloride (NS-KCl 20 Meq) 1,000 ml @ 50 mls/hr Q20H IV Last administered on 09/03/16 08:35; Admin Dose 50 MLS/HR; Start 08/30/16 at 22:23 Ondansetron HCl (Zofran Inj) 4 mg Q6H PRN IV NAUSEA AND/OR VOMITING; Start at 22:30 Acetaminophen (Tylenol Tab) 650 mg Q6H PRN PO PAIN LEVEL 1-3 OR FEVER Last administered on 09/01/16 23:26; Admin Dose 650 MG; Start 08/30/16 at 22:30 Docusate Sodium 100 mg 100 mg Q12H PRN PO CONSTIPATION; Start 08/30/16 at 22:30 Immune Globulin/ Sterile Water (Carimune Nf/ Water Sterile For Inj) 850 ml @ 60 mls/hr Q24H IV Last administered on 09/02/16 23:31; Admin Dose 60 MLS/HR; Start 08/31/16 at 23:30; Stop 09/05/16 at 13:39 Pantoprazole (Protonix Tab) 40 mg DAILY@06 PO Last administered on 09/03/16 06 :09; Admin Dose 40 MG; Start 09/03/16 at 06:00 Acetaminophen/ Hydrocodone Bitart ([place] (5/325)) 1 tab Q6H PRN PO PAIN LEVEL 4 -6 Last administered on 09/03/16 10:32; Admin Dose 1 TAB; Start 09/03/16 at 10: 30 FRANCISCO GILMORE MD Sep 03, 2016 18:44
[2016-09-03] MEDS: IMMUNE GLOBULIN IV SCH (23:22)
[2016-09-03] MEDS: WATER STERILE FOR IV SCH (23:22)
[2016-09-04] VITALS (12 sets, daily range): BP systolic 125–137; BP diastolic 78–94; PULSE 69–87; RESP 18–20
[2016-09-04] MEDS: NS + KCL 20 MEQ 1,000 ML IV SCH ×2 (02:23→11:43)
[2016-09-04] MEDS: PANTOPRAZOLE (EC) 40 MG TAB PO SCH (05:59)
[2016-09-04 07:47] LABS: ADD SCAN DIFF NO
[2016-09-04 07:55] LABS: BASOPHILS % 0.3 % (0.0-2.0); EOSINOPHILS % 0.4 % (0.0-7.0); HEMATOCRIT 43.8 % (42.0-52.0); HEMOGLOBIN 14.2 g/dl (14.0-18.0); LYMPHOCYTES # 1.5 10^3/ul (0.8-2.9); MEAN CORPUSCULAR HEMOGLOBIN 30.7 pg (29.0-33.0); MEAN CORPUSCULAR HGB CONC 32.4 g/dl (32.0-37.0); MEAN CORPUSCULAR VOLUME 94.8 fl (82.0-101.0); MEAN PLATELET VOLUME 8.7 fl (7.4-10.4); MONOCYTE # 0.5 10^3/ul (0.3-0.9); MONOCYTES % 6.4 % (0.0-11.0); NEUTROPHIL # 5.8 10^3/ul (1.6-7.5); NEUTROPHILS % 73.6 % (39.0-77.0); PLATELET COUNT 400 10^3/UL (140-415); RED BLOOD COUNT 4.62 10^6/ul (4.70-6.10); RED CELL DISTRIBUTION WIDTH 13.5 % (11.5-14.5); WHITE BLOOD COUNT 7.8 10^3/ul (4.8-10.8)
[2016-09-04 08:36] LABS: ALBUMIN 3.8 g/dl (3.3-4.9); POTASSIUM 4.7 mmol/L (3.5-5.1)
[2016-09-04 08:39] LABS: ALBUMIN/GLOBULIN RATIO 0.71; CREATININE 0.77 mg/dl (0.61-1.24); TOTAL PROTEIN 9.1 g/dl (6.1-8.1)
[2016-09-04 08:40] LABS: CALCIUM 9.1 mg/dl (8.4-10.2)
[2016-09-04] MEDS: ACETAMINOPHEN 325 MG TAB PO PRN ×2 (11:43→23:47)
--- NOTE | 2016-09-04 18:36 | PN ---
Date/Time of Note Date/Time of Note DATE: 09/04/16 TIME: 18:35 Assessment/Plan VTE Prophylaxis VTE Prophylaxis Intervention: other Lines/Catheters IV Catheter Type (from Nrs): Peripheral IV Urinary Cath still in place: No Assessment/Plan Chief Complaint/Hosp Course POSS GBSYNDROME DDD PLAN PER NEURO ivig pt/ot Problems: Subjective 24 Hr Interval Summary Subjective hx not possible: other (no change) Exam/Review of Systems Vital Signs Vitals Vital Signs Date Time Temp Pulse Resp B/P Pulse Ox O2 Delivery O2 Flow Rate FiO2 09/04/16 16:14 87 09/04/16 15:31 98.0 20 137/94 96 09/03/16 04:00 Room Air Intake and Output 09/03/16 09/03/16 09/04/16 14:59 22:59 06:59 Intake Total 1600 ml 450 ml Balance 1600 ml 450 ml Exam Neck: supple Respiratory: clear to auscultation Cardiovascular: regular rate and rhythm Gastrointestinal: soft Musculoskeletal: nl extremities to inspection Extremities: normal pulses Results Result Diagram: 09/04/16 0615 09/04/16 0615 Results 24 hrs Laboratory Tests Test 09/04/16 06:15 White Blood Count 7.8 # Red Blood Count 4.62 L Hemoglobin 14.2 Hematocrit 43.8 Mean Corpuscular Volume 94.8 Mean Corpuscular Hemoglobin 30.7 Mean Corpuscular Hemoglobin Concent 32.4 Red Cell Distribution Width 13.5 Platelet Count 400 Mean Platelet Volume 8.7 Neutrophils % 73.6 Lymphocytes % 19.0 Monocytes % 6.4 Eosinophils % 0.4 Basophils % 0.3 Nucleated Red Blood Cells % 0.0 Neutrophils # 5.8 Lymphocytes # 1.5 Monocytes # 0.5 Eosinophils # 0.0 Basophils # 0.0 Nucleated Red Blood Cells # 0.0 Sodium Level 134 L Potassium Level 4.7 Chloride Level 98 Carbon Dioxide Level 28 Anion Gap 13 Blood Urea Nitrogen 20 Creatinine 0.77 Glucose Level 94 Calcium Level 9.1 Total Bilirubin 1.0 Direct Bilirubin 0.00 Indirect Bilirubin 1.0 Aspartate Amino Transf (AST/SGOT) 44 Alanine Aminotransferase (ALT/SGPT) 33 Alkaline Phosphatase 80 Total Protein 9.1 H Albumin 3.8 Globulin 5.30 H Albumin/Globulin Ratio 0.71 Medications Medications Current Medications Potassium Chloride/Sodium Chloride (NS-KCl 20 Meq) 1,000 ml @ 50 mls/hr Q20H IV Last administered on 09/04/16 11:43; Admin Dose 50 MLS/HR; Start 08/30/16 at 22:23 Ondansetron HCl (Zofran Inj) 4 mg Q6H PRN IV NAUSEA AND/OR VOMITING; Start at 22:30 Acetaminophen (Tylenol Tab) 650 mg Q6H PRN PO PAIN LEVEL 1-3 OR FEVER Last administered on 09/04/16 11:43; Admin Dose 650 MG; Start 08/30/16 at 22:30 Docusate Sodium 100 mg 100 mg Q12H PRN PO CONSTIPATION; Start 08/30/16 at 22:30 Immune Globulin/ Sterile Water (Carimune Nf/ Water Sterile For Inj) 850 ml @ 60 mls/hr Q24H IV Last administered on 09/03/16 23:22; Admin Dose 60 MLS/HR; Start 08/31/16 at 23:30; Stop 09/05/16 at 13:39 Pantoprazole (Protonix Tab) 40 mg DAILY@06 PO Last administered on 09/04/16 05 :59; Admin Dose 40 MG; Start 09/03/16 at 06:00 Acetaminophen/ Hydrocodone Bitart ([place] (5/325)) 1 tab Q6H PRN PO PAIN LEVEL 4 -6 Last administered on 09/03/16 23:33; Admin Dose 1 TAB; Start 09/03/16 at 10: 30 FRANCISCO GILMORE MD Sep 04, 2016 18:36
--- NOTE | 2016-09-04 22:08 | PN ---
DATE: FOLLOWUP REFERRING PHYSICIANS: Dr. Alvarez, Dr. Villanueva, and HISTORY OF PRESENT ILLNESS: The patient is a 55-year-old male admitted to [facility] with bilateral upper and lower extremity weakness with ascending paralysis, and was to be admitt ed for evaluation for Guillain-[place]. The patient was stared on IVIG. The patient had improvement, according to him and his family, and I will order for him physical therapy for more evaluation and treatment. His current medication will be on reconciliation sheet. PHYSICAL EXAMINATION: GENERAL: Today, the patient is alert, awake, oriented for time, place, and person. Normal speech a nd normal language. CRANIAL NERVES: Cranial nerve II: Pupils equal on both sides, reactive to light. Cranial nerves I II, IV, and : Extraocular muscles intact. Cranial nerve V: Equal sensation to face. Cranial ne rve VII: Symmetrical face. Cranial nerve VIII: Equal hearing bilaterally, nontender. Cranial ner ve XI, X: Elevates shoulder 5/5. Cranial nerve XII: With straight tongue. MOTOR: Moving both upper and lower extremities against gravity. Sensation decreased for glove and sock area for light touch and temperature. COORDINATION: Rmufft-xa-kffj test intact. HEART: Regular rate and rhythm. LUNGS: Equal breath sounds. ABDOMEN: Soft, relaxed, nondistended, nontender. ASSESSMENT AND PLAN 1. The patient is a 55-year-old with underlying Guillain-[place]. We will continue the patient on IV IG for 5 days. We will keep the patient under telemetry status because of autonomic neuropathy. It happens with this kind of syndrome. 2. History of degenerative disk disease at his cervical area, in which we called Dr. Sprague for more evaluation and treatment. 3. We will follow up the patient with physical therapy and occupation therapy. Again, thank you, Dr. Alvarez, for asking me to see the patient with you. Dictated By: CANDICE BATISTA/SHOAIB Conf#: [id number] DID#: [id number]
[2016-09-04] MEDS: IMMUNE GLOBULIN IV SCH (23:42)
[2016-09-04] MEDS: WATER STERILE FOR IV SCH (23:42)
[2016-09-05] VITALS (12 sets, daily range): BP systolic 119–141; BP diastolic 82–91; PULSE 65–95; RESP 18–20
[2016-09-05] MEDS: HYDROCODONE/APAP (5/325) TAB PO PRN ×2 (03:24→12:12)
[2016-09-05] MEDS: PANTOPRAZOLE (EC) 40 MG TAB PO SCH (05:37)
--- NOTE | 2016-09-05 07:07 | CONS ---
DATE OF ADMISSION: 08/30/2016 DATE OF CONSULTATION: 09/04/2016 REQUESTING PHYSICIAN: Dr. Binh Catherine CONSULTING SERVICE: Neurosurgery HISTORY OF PRESENT ILLNESS: This is a 55-year-old male in overall good health with past medical his tory significant for diabetes and hypertension who began having new onset progressively increasing a nd ascending weakness of his lower and eventually upper extremities approximately a week ago. The danna starr, of note, had had a significant episodes of diarrhea associated with food poisoning approxima tely 7 to 10 days prior to the start of this weakness episode. 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 The patient and his da treverhter and friend who are at bedside tell me that at its worst, in regard to weakness, the patient w as unable to walk anymore and had great difficulty using his upper and lower extremities. However, the patient never developed difficulty breathing and was fortunately never ventilator dependent. Th e patient also had great difficulty with his truncal movement. Since then, the patient had been imp roving where he is now able to move his legs and arms again although not with great strength. 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 As part of his workup imaging studies, the patient received an MRI of the cervical, thoracic , and lumbar spine where he was found to have cervical stenosis, and neurosurgery is being consulted in regards to that. Upon further questioning, the patient is right-handed. 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 Nancy or to the episode of the Guillain-Dixon Syndrome occurring, the patient has been able to use his melton ds with great dexterity. His handwriting has also not changed. The patient also denies any imbalan ce or gait ataxia or difficulty with ambulation. The patient does not have significant neck pain. He denies any numbness or radiating pain of his upper or lower extremities. PAST MEDICAL HISTORY: As mentioned above, significant for diabetes and hypertension. ALLERGIES: NO KNOWN DRUG ALLERGIES. MEDICATIONS: The patient's medications have been reviewed and are attached to the chart. 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 He denies smoking tobacco. Denies use of illicit or recreational drugs. He denies use of alcoholic beverages. FAMILY HISTORY: Noncontributory. REVIEW OF SYSTEMS: Please see above for positive pertinent and negative. The patient denies shortn ess of breath or chest pain. PHYSICAL EXAMINATION: GENERAL: The patient is seen at bedside next to his daughter and the patient's friend. NEUROLOGIC: He is awake, alert, oriented x4. His language is fluent. His face is symmetric. Tong ue is midline. Extraocular movements are intact. Muscle bulk and tone seems to be normal bilateral upper and lower extremities. Motor strength proximal upper extremities is 4-/5 on the left and 3+ on the right proximally. Distal upper extremities, including the hand master esthetician, motor strength is about 2/5 bilaterally. Motor strength bilateral lower extremities proximally is 4-/5 bilaterally and dis tally is 4/5 bilaterally including ankle dorsiflexion and plantar flexion. Sensation to light touch is grossly intact bilateral upper and lower extremities. Deep tendon reflexes are hypoactive bilat eral upper and lower extremities. There is no Love sign. Toes are downgoing bilaterally. Gait testing has been deferred per patient request. The patient had no tenderness involving the cervical spine. The range of the patient's neck movement with flexion, extension, and lateral rotation is g rossly normal. IMAGING: The patient has received an MRI of the cervical, thoracic, and lumbar spine. The MRI of t he thoracic and lumbar spine does not show any evidence of subluxation or fracture. There is no alejandra dence of significant thoracic or lumbar stenosis. The MRI of the cervical spine does show a C5-C6 a nd to a lesser degree C6-C7 central canal stenosis causing at least moderate compression of the spin al cord without any spinal cord signal intensity changes. ASSESSMENT AND PLAN: This is a 55-year-old male with a recent history of diarrhea that seems to hav e been related to gastroenteritis who developed ascending near paralysis of his lower and upper extr emities a week ago, diagnosed with Guillain-Dixon Syndrome, being treated with IVIG, who has florentino tely showed great response to the treatment. The patient is not ventilator dependent and is already improving and able to stand with help. Incidentally, the patient is found to have 2-level cervical stenosis, but the patient, based on questioning, does not have any evidence of critical cervical my elopathy. I have discussed the findings in great detail with the patient and his daughter and pedro zhang in that, even though the patient has cervical stenosis, he does not show any symptoms of cervical myelopathy. At this point, there is no acute neurosurgical intervention indicated. I have explaine d to the patient that, should he develop any signs of sensory motor deficit including weakness, numb ness, clumsiness, loss of dexterity, gait ataxia, or loss of balance, the patient should again be re evaluated by neurosurgery for possible intervention. Otherwise, at this point, there is no acute ne urosurgical intervention indicated. The patient and the family fully understand the above discussio n and will follow up with me on an as needed basis. Dictated By: ALBA GONZALEZ MD, SA/SHOAIB Conf#: [id number] DID#: [id number]
[2016-09-05] MEDS: ACETAMINOPHEN 325 MG TAB PO PRN (09:04)
[2016-09-05] MEDS: NS + KCL 20 MEQ 1,000 ML IV SCH (11:03)
--- NOTE | 2016-09-05 11:14 | CONS ---
DATE OF ADMISSION: 08/30/2016 DATE OF CONSULTATION: TYPE OF CONSULTATION: Neurosurgery REQUESTING PHYSICIAN: Dr. Kobe Alvarez INDICATION FOR CONSULTATION: Cervical stenosis. HISTORY OF PRESENT ILLNESS: The patient is a 55-year-old right-handed male with a history of diabetes and hypertension who reports 1 week of progressive weakness. The patient states that the Saturday before he felt that he had some food poisoning and had gastroenteritis. He had awoken Saturday noticing sort of a diffuse body ache and subsequently noticed weakness in his feet that extended to his hands. Soon after the patient had significant diffuse weakness. The patient came to the hospital and was diagnosed with Guillain-[place] syndrome and was started on IVIG treatment. The patient, however, has been improving per the patient's report and was able to apparently take a few steps with assistance and sit up, which he was not able to do. The patient denies any trauma. He denies any neck pain. He denies any weakness, numbness or tingling prior to the onset of his symptoms. In evaluation of the patient's issues, he received MRI of the cervical, thoracic and lumbar spine. MRI of cervical spine showed some central canal stenosis at C5 to C6 and C6 to C7 levels. There is no evidence of cord signal change. Because of this finding, neurosurgical consultation was requested. Again, prior to the onset of paralysis, the patient has denied any gait unsteadiness, weakness or numbness, or loss of fine motor coordination such as changes in handwriting, difficulty buttoning buttons or opening cans. He states that his symptoms simply began suddenly his lower extremities and progressed to his entire body, though again he reports that he feels some improvement. He denies any other sensory changes. He enies any bowel or bladder incontinence or loss of sensation or saddle anesthesia. PAST MEDICAL HISTORY: Significant for diabetes, hypertension. ALLERGIES: NO KNOWN DRUG ALLERGIES. 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 He is a nonsmoker. Denies any history of illicit drug use. Reports that he does not drink alcohol. FAMILY HISTORY: Denies any history of easy bleeding or bruising. REVIEW OF SYSTEMS: A 12-point review of systems performed. Pertinent positives and negatives as listed in history of present illness and listed below. CONSTITUTIONAL: Denies any fevers, chills or weight loss. HEMATOLOGIC: Denies any history of easy bruising or bleeding. RESPIRATORY: Denies any shortness of breath or difficulty breathing. MEDICATIONS: The patient's medications include: 1. Tylenol. 2. Landers. 3. Colace. 4. Zofran. 5. Protonix. The patient was not taking any prehospitalization medications per report. PHYSICAL EXAMINATION: VITAL SIGNS: Temperature 98.1, pulse 69, respirations 20, blood pressure 119/82 , saturating 94% on room air. GENERAL: The patient is a well-developed, well-nourished male lying in the hospital bed, in no acute distress. HEAD AND NECK: Normocephalic, atraumatic. His neck is supple. There is no Spurling's or Lhermitte's sign. CARDIAC: Regular rate and rhythm. LUNGS: Clear to auscultation. ABDOMEN: Nontender, nondistended, soft. EXTREMITIES: No clubbing, cyanosis or edema. NEUROLOGIC: The patient is awake, alert, and oriented x3. Fluent speech. Follows commands readily and appropriately. He has normal attention and concentration. He has intact remote, immediate and recent memory. Cranial nerves II through XII are serially tested and are intact. The patient's motor exam is 2/5 in his deltoids, 4/5 in his biceps and triceps, 2/5 in his wrist extension and 3/5 in his cyber security engineer. His hip flexors are 3/5, quadriceps 4-/5. His dorsiflexion is 3/5 and plantar flexion 4/5 bilaterally. The patient has intact sensation to proprioception, pinprick and light touch. The patient does not clearly have any ataxia or dysmetria, but difficult to assess secondary to weakness. Unable to perform pronator drift. Gait not assessed secondary to general weakness. LABORATORY DATA: White count 7.8, hemoglobin 14.2, platelets 400. His coagulation panel 12.5, INR 0.93 and APTT 30.6. Sodium 134, BUN and creatinine 20 and 0.77, glucose of 94. Tox screen was negative. UA was negative. IMAGING: I reviewed the patient's MRI of the cervical, thoracic and lumbar spine. The MRI of the cervical spine was reported to show a broad-based central to left paracentral disk protrusion at C6 to C7 resulting in moderate to severe central canal stenosis and bilateral foraminal stenosis. Degenerative disk and spondylotic changes resulting in moderate to severe central canal stenosis, moderate bilateral foraminal stenosis at C5 to C6. At both levels, AP dimension is measured to be 6.5 mm. There is multilevel degenerative disk disease and spondylotic changes resulting in various degrees of central canal stenosis and foraminal stenosis at C3 to C4 through C6 to C7, and there is normal spinal cord signal without syringohydromyelia. I reviewed this study and concur with this interpretation, there is stenosis at C5 to C6 and C6 to C7 levels due to cervical spondylosis; however, there is no evidence of subluxation or instability And there is no evidence of spinal cord signal change. The patient also had MRI of the lumbar spine which showed degenerative disk disease and narrowing at L5 to S1 with degenerative endplate changes and a small central disk protrusion. There is no significant central canal or foraminal stenosis. There is multiple disk desiccation and loss of disk height , a grade I anterolisthesis of L5 of 2 mm without disk protrusion and stenosis, and mild multilevel facet joint arthropathy L2 to L3 and L5 to S1. The MRI of the thoracic spine was unremarkable with no evidence of fracture or subluxation , epidural or intraparenchymal masses or signal changes. 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 All these studies were interpreted by physician Venkata Huynh on 08/31/2016. The patient also had a CT scan of the brain and a CT of the cervical spine. CT scan of the brain showed a left parafalcine, left occipital 3 mm calcification consistent with previous inflammatory disease such as cysticercosis and no evidence of intracranial masses, hemorrhages, or midline shift. CT of the cervical spine showed no evidence of acute fracture or subluxation, but there is moderate degenerative disk disease at C5 to C6 and C6 to C7. There is moderate degenerative disk disease and spondylosis with bilateral neural foraminal stenosis with borderline central canal stenosis and MRI was recommended. ASSESSMENT AND PLAN: A 55-year-old male with cervical stenosis and Guillain- [place] syndrome. I discussed the patient's signs, symptoms, physical examination and radiographic findings with the patient. The patient appears to have Guillain-[place] syndrome by examination and history. The patient has flaccid paralysis and is areflexic. The natural history and onset and presentation as well as physical exam findings are most consistent with Guillain-[place] syndrome or some other type of diffuse neuropathy rather than a cervical myelopathy. The patient is not spastic and does not have hyperreflexia. Radiographically, there is no cord signal change and the patient does not report any other preexisting symptoms consistent with myelopathy. I believe the cervical stenosis is an incidental finding. Nevertheless, in this condition without a premorbid examination, the degree to which the patient may have shown some physical exam findings cannot be determined. Nevertheless, the patient clinically was asymptomatic per history. The patient is clinically improving. I discussed cervical stenosis, cervical myelopathy and the natural history of this condition. I explained that the patient's history was not consistent with a rapidly progressive myelopathy or spinal cord injury; if the patient did have a spinal cord injury, it would be most consistent with a central cord syndrome by the predominant upper extremity rather than lower extremity weakness. I explained even in this case that observation is reasonable with improvement. Overall, I do not believe this patient is likely symptomatic from cervical myelopathy and therefore, would not recommend surgical decompression at this time. I explained that if the patient does Guillain-[place], there would be significant risk in general anesthesia with the patient while he is recovering as there would be a greater risk of potential ventilator dependency, especially if the patient does indeed have Guillain-[place] syndrome. Therefore, I believe that since the patient is recovering, that he should be allowed to continue to recover with physical therapy and rehabilitation. The patient should, however, be reevaluated for his cervical stenosis. I believe this is likely asymptomatic and the patient does not appear to have clear localizing long tract signs on examination, nor cord signal change radiographically. In cases such as asymptomatic cervical stenosis, generally observation is reasonable and given the patient's current condition this was recommended. The patient should follow up for reexamination in the future and should the patient start to develop any signs or symptoms that may be suggestive of cervical myelopathy once he has improved from his Guillain-[place], or should the patient plateau and there is suggestion that the patient may be developing myelopathy, then surgical intervention may be indicated. However, at this point in time, continued medical management is recommended. Thank you for allowing me to participate in the care of this patient. Dictated By: LILO BOYCE MD, LG/SHOAIB Conf#: [id number] DID#: [id number] KASEY
--- NOTE | 2016-09-05 19:47 | PN ---
Date/Time of Note Date/Time of Note DATE: 09/05/16 TIME: 19:47 Assessment/Plan VTE Prophylaxis VTE Prophylaxis Intervention: other Lines/Catheters IV Catheter Type (from Nrsg): Peripheral IV Urinary Cath still in place: No Assessment/Plan Chief Complaint/Hosp Course POSS GBSYNDROME DDD PLAN PER NEURO ivig pt/ot see by neurosurgery no intervention Problems: Subjective 24 Hr Interval Summary Cardiovascular: no complaints Gastrointestinal: no complaints Genitourinary: no complaints Exam/Review of Systems Vital Signs Vitals Vital Signs Date Time Temp Pulse Resp B/P Pulse Ox O2 Delivery O2 Flow Rate FiO2 09/05/16 16:37 66 09/05/16 16:03 98.4 20 133/84 94 09/03/16 04:00 Room Air Intake and Output 09/04/16 09/04/16 09/05/16 15:00 23:00 07:00 Intake Total 1950 ml 430 ml Balance 1950 ml 430 ml Exam Respiratory: clear to auscultation Cardiovascular: regular rate and rhythm Gastrointestinal: soft Musculoskeletal: nl extremities to inspection Extremities: normal pulses Results Result Diagram: 09/04/1615 09/04/16 0615 Medications Medications Current Medications Potassium Chloride/Sodium Chloride (NS-KCl 20 Meq) 1,000 ml @ 50 mls/hr Q20H IV Last administered on 09/05/16 11:03; Admin Dose 50 MLS/HR; Start 08/30/16 at 22:23 Ondansetron HCl (Zofran Inj) 4 mg Q6H PRN IV NAUSEA AND/OR VOMITING; Start at 22:30 Acetaminophen (Tylenol Tab) 650 mg Q6H PRN PO PAIN LEVEL 1-3 OR FEVER Last administered on 09/05/16 09:04; Admin Dose 650 MG; Start 08/30/16 at 22:30 Docusate Sodium (Colace) 100 mg Q12H PRN PO CONSTIPATION; Start 08/30/16 at 22: 30 Pantoprazole (Protonix Tab) 40 mg DAILY@06 PO Last administered on 09/05/16 05 :37; Admin Dose 40 MG; Start 09/03/16 at 06:00 Acetaminophen/ Hydrocodone Bitart ([place] (5/325)) 1 tab Q6H PRN PO PAIN LEVEL 4 -6 Last administered on 09/05/16 12:12; Admin Dose 1 TAB; Start 09/03/16 at 10: 30 FRANCISCO GILMORE MD Sep 05, 2016 19:47
--- NOTE | 2016-09-05 21:22 | CONS ---
DATE OF ADMISSION: 08/30/2016 DATE OF CONSULTATION: REFERRING PHYSICIAN: Dr. Alvarez Thank you, Dr. Alvarez, for asking me to see the patient. HISTORY OF PRESENT ILLNESS: This is a followup. The patient is a 55-year-old male with a past [facility] history of hypertension, diabetes. The patient admitted with ascending ____ effect in both uppe r and lower extremities consistent with Guillain-Cookson syndrome in which I started the patient on IV IG with the patient improving. Will follow up the patient with Neurosurgery after he has ____ MRI, has some cervical stenosis, by Dr. Cj Sprague for more evaluation and treatment. PAST MEDICAL HISTORY: Includes diabetes, hypertension. 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 SOCIAL HISTORY: He does not smoke, does not drink, does not use any street drugs. PHYSICAL EXAMINATION: GENERAL: On exam today, the patient is alert, awake, oriented to time, place and person. Normal sp eech and normal language. CRANIAL NERVES: Cranial nerve II: Pupils equal on both sides, reactive to light. Cranial nerves I II, IV and : Extraocular muscles intact. No nystagmus. Cranial nerve V: Equal sensation to fac e. Cranial nerve VII: Symmetrical face. Cranial nerve VIII: Equal hearing bilaterally. Cranial nerves IX and X: Elevates palate. Cranial nerve XI: Elevates shoulder 5/5. Cranial nerve XII: S traight tongue. MOTOR: Moving both upper and lower extremities against gravity with improvement since starting IVIG . Coordination with weakness but is intact. Gait with assistance. HEART: Regular rate and rhythm. LUNGS: Equal breath sounds. ABDOMEN: Soft, relaxed, nondistended, nontender. ASSESSMENT AND PLAN: 1. 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 Will continue the patient with acute rehab evaluation. 2. The patient seen by Neurosurgery for cervical radiculopathy. No myelopathy finding. Will follo w up the patient as an outpatient for Neurosurgery, Dr. Cj Sprague. Again, thank you for asking me to see the patient with you. Dictated By: CANDICE BATISTA/SHOAIB Conf#: [id number] [facility]#: [id number]
[2016-09-06] VITALS (10 sets, daily range): BP systolic 123–149; BP diastolic 83–90; PULSE 59–87; RESP 18–20
[2016-09-06] MEDS: HYDROCODONE/APAP (5/325) TAB PO PRN (02:25)
[2016-09-06] MEDS: PANTOPRAZOLE (EC) 40 MG TAB PO SCH (05:31)
[2016-09-06 08:25] LABS: ALBUMIN 3.6 g/dl (3.3-4.9)
[2016-09-06 08:26] LABS: POTASSIUM 4.4 mmol/L (3.5-5.1)
[2016-09-06 08:28] LABS: ALBUMIN/GLOBULIN RATIO 0.7; BILIRUBIN,INDIRECT 0.8 mg/dl (0-1.1); BILIRUBIN,TOTAL 0.8 mg/dl (0.2-1.3); CREATININE 0.74 mg/dl (0.61-1.24); TOTAL PROTEIN 8.7 g/dl (6.1-8.1)
[2016-09-06 08:29] LABS: CALCIUM 9.2 mg/dl (8.4-10.2)
[2016-09-06] MEDS: NS + KCL 20 MEQ 1,000 ML IV SCH (09:48)
--- NOTE | 2016-09-06 19:42 | PN ---
Date/Time of Note Date/Time of Note DATE: 09/06/16 TIME: 19:41 Assessment/Plan VTE Prophylaxis VTE Prophylaxis Intervention: other Lines/Catheters IV Catheter Type (from Nrsg): Peripheral IV Urinary Cath still in place: No Assessment/Plan Chief Complaint/Hosp Course GBSYNDROME better DDD PLAN PER NEURO ivig pt/ot see by neurosurgery no intervention Problems: Subjective 24 Hr Interval Summary Gastrointestinal: no complaints Genitourinary: no complaints Exam/Review of Systems Vital Signs Vitals Vital Signs Date Time Temp Pulse Resp B/P Pulse Ox O2 Delivery O2 Flow Rate FiO2 09/06/16 16:33 87 09/06/16 15:56 98.4 20 123/90 96 09/03/16 04:00 Room Air Intake and Output 09/05/16 09/05/16 09/06/16 15:00 23:00 07:00 Intake Total 600 ml 790 ml Balance 600 ml 790 ml Exam Neck: supple Respiratory: clear to auscultation Cardiovascular: regular rate and rhythm Gastrointestinal: soft Musculoskeletal: nl extremities to inspection Extremities: normal pulses 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, other (weakness little better) Results Result Diagram: 09/04/16 0615 09/06/16 0648 Results 24 hrs Laboratory Tests Test 09/06/16 06:48 Sodium Level 138 Potassium Level 4.4 Chloride Level 100 Carbon Dioxide Level 30 Anion Gap 12 Blood Urea Nitrogen 20 Creatinine 0.74 Glucose Level 97 Calcium Level 9.2 Total Bilirubin 0.8 Direct Bilirubin 0.00 Indirect Bilirubin 0.8 Aspartate Amino Transf (AST/SGOT) 35 Alanine Aminotransferase (ALT/SGPT) 33 Alkaline Phosphatase 72 Total Protein 8.7 H Albumin 3.6 Globulin 5.10 H Albumin/Globulin Ratio 0.70 Medications Medications Current Medications Potassium Chloride/Sodium Chloride (NS-KCl 20 Meq) 1,000 ml @ 50 mls/hr Q20H IV Last administered on 09/06/16 09:48; Admin Dose 50 MLS/HR; Start 08/30/16 at 22:23 Ondansetron HCl (Zofran Inj) 4 mg Q6H PRN IV NAUSEA AND/OR VOMITING; Start at 22:30 Acetaminophen (Tylenol Tab) 650 mg Q6H PRN PO PAIN LEVEL 1-3 OR FEVER Last administered on 09/05/16 09:04; Admin Dose 650 MG; Start 08/30/16 at 22:30 Docusate Sodium (Colace) 100 mg Q12H PRN PO CONSTIPATION; Start 08/30/16 at 22: 30 Pantoprazole (Protonix Tab) 40 mg DAILY@06 PO Last administered on 09/06/16 05 :31; Admin Dose 40 MG; Start 09/03/16 at 06:00 Acetaminophen/ Hydrocodone Bitart ([place] (5/325)) 1 tab Q6H PRN PO PAIN LEVEL 4 -6 Last administered on 09/06/16 02:25; Admin Dose 1 TAB; Start 09/03/16 at 10: 30 FRANCISCO GILMORE MD Sep 06, 2016 19:42
== END 2016-09-06 19:47 | DRG 96 ==
LOC: FTE 13:45 → MS1 16:15 → MS4 08-31 19:25
PROVIDERS: ADMIT Internal Medicine Nephrology; ATTEND Internal Medicine Nephrology
PROC: 30233S1 Transfusion of Nonautologous Globulin into Peripheral Vein, Percutaneous Approach (ICD-10-PCS; principal; 2016-08-31)
DX: G61.0 Guillain-Barre syndrome (principal); M48.02 Spinal stenosis, cervical region; K52.9 Noninfective gastroenteritis and colitis, unspecified; M50.322 Other cervical disc degeneration at C5-C6 level; M47.812 Spondylosis without myelopathy or radiculopathy, cervical region; R53.1 Weakness
CPT/HCPCS: 36415; 70450; 71010; 72125; 72141; 72146; 72148; 80048; 80053; 80307; 81003; 82962; 83036; 84484; 85025; 85610; 85730; 93005; 96374; 97110; 97116; 97162; 97530; J1566; C9113; J3480; J7030

== ENCOUNTER 2016-09-06 17:19 | Inpatient (IN) | payer OTHER ==
[~2016-09-06] VITALS: Ht 177.8 cm; Wt 81.1 kg
[2016-09-06 20:48] VITALS: BP 140/85; RESP 20
[2016-09-06 21:00] VITALS: Ht 177.8 cm; Wt 81.1 kg
--- NOTE | 2016-09-06 21:06 | PN ---
DATE: This is a followup for the patient. The patient is admitted with Guillain-[place] syndrome, status po st IVIG with some improvement. However, the patient still has weakness, bilateral upper and lower e xtremities in which recommend the patient to go for acute rehab for more evaluation and treatment an d continuation for his medication. The patient also has cervical radiculopathy in which the patient seen by Dr. Cj Sprague, neurosurgeon. PHYSICAL EXAMINATION: GENERAL: On exam today, the patient is alert, awake, oriented for time, place and person. Normal s peech and normal language. CRANIAL NERVES: Cranial nerve II: Pupils equal on both sides, reactive to light. Cranial nerves I II, IV and : Extraocular muscles intact. No nystagmus. Cranial nerve V: Equal sensation to fac e. Cranial nerve VIII: Equal hearing bilaterally. Cranial nerve X: Elevates palate. Cranial ner ve XI: Elevates shoulder 5/5. Cranial nerve XII: Straight tongue. MOTOR: Moving both upper and lower extremities against gravity, shows 4/5. Gait with assistance. HEART: Regular rate and rhythm. LUNGS: Equal breath sounds. ABDOMEN: Soft, relaxed, nondistended. No tenderness. ASSESSMENT AND PLAN: 1. This is a patient with acute onset of acute inflammatory demyelinating peripheral neuropathy kno wn as Guillain-[place] syndrome in which the patient status post IVIG. 2. Quadriparesis in which the patient under acute rehabilitation for more evaluation and treatment and continuation for occupational therapy and physical therapy. 3. Gait difficulty. Will keep the patient under fall precautions. 4. Underlying cervical radiculopathy in which the patient evaluated by Neurosurgery and will treat him medically at this point and see how the patient responds for that. 5. Will keep the patient on deep venous thrombosis prophylaxis as well as decubitus ulcer prophylax is. Again, thank you for asking me to see the patient with you. Dictated By: CANDICE BATISTA/SHOAIB Conf#: [id number] DID#: [id number]
[2016-09-06] MEDS ORDERED: DOCUSATE SODIUM 100 MG CAP PO PRN (22:30)
[2016-09-06] MEDS ORDERED: ONDANSETRON 4 MG INJ IV PRN (22:30)
[2016-09-06] MEDS ORDERED: NACL 0.9% 3 ML SYG IV SCH (23:00)
[2016-09-06] MEDS: HYDROCODONE/APAP (5/325) TAB PO PRN (23:19)
[2016-09-07 03:02] LABS: ADD UMIC NO; URINE BILIRUBIN (Dip) NEGATIVE (NEGATIVE); URINE BLOOD (Dip) NEGATIVE (NEGATIVE); URINE COLOR LT. YELLOW (YELLOW); URINE GLUCOSE (Dip) NEGATIVE (NEGATIVE); URINE KETONES (Dip) NEGATIVE (NEGATIVE); URINE LEUKOCYTE ESTERASE (Dip) NEGATIVE (NEGATIVE); URINE NITRITE (Dip) NEGATIVE (NEGATIVE); URINE TOTAL PROTEIN (Dip) NEGATIVE (NEGATIVE); URINE UROBILINOGEN (Dip) 0.2 E.U./dL (0.1-1.0)
[2016-09-07 06:25] LABS: ADD SCAN DIFF NO
[2016-09-07 06:40] LABS: ALBUMIN 3.8 g/dl (3.3-4.9); BASOPHIL # 0.1 10^3/ul (0.0-0.1); BASOPHILS % 0.8 % (0.0-2.0); EOSINOPHILS % 0.6 % (0.0-7.0); HEMOGLOBIN 15.1 g/dl (14.0-18.0); LYMPHOCYTES # 1.9 10^3/ul (0.8-2.9); LYMPHOCYTES % 28.7 % (15.0-51.0); MEAN CORPUSCULAR HEMOGLOBIN 30.8 pg (29.0-33.0); MEAN CORPUSCULAR HGB CONC 32.8 g/dl (32.0-37.0); MEAN CORPUSCULAR VOLUME 93.7 fl (82.0-101.0); MEAN PLATELET VOLUME 8.8 fl (7.4-10.4); MONOCYTE # 0.6 10^3/ul (0.3-0.9); MONOCYTES % 8.6 % (0.0-11.0); PLATELET COUNT 376 10^3/UL (140-415); POTASSIUM 4.5 mmol/L (3.5-5.1); RED BLOOD COUNT 4.91 10^6/ul (4.70-6.10); RED CELL DISTRIBUTION WIDTH 12.8 % (11.5-14.5); WHITE BLOOD COUNT 6.6 10^3/ul (4.8-10.8)
[2016-09-07 06:42] LABS: CREATININE 0.77 mg/dl (0.61-1.24)
[2016-09-07 06:43] LABS: ALBUMIN/GLOBULIN RATIO 0.66; BILIRUBIN,INDIRECT 0.6 mg/dl (0-1.1); BILIRUBIN,TOTAL 0.6 mg/dl (0.2-1.3); TOTAL PROTEIN 9.5 g/dl (6.1-8.1)
[2016-09-07 06:44] LABS: CALCIUM 9.4 mg/dl (8.4-10.2)
[2016-09-07] MEDS: PANTOPRAZOLE (EC) 40 MG TAB PO SCH (06:48)
[2016-09-07 07:30] VITALS: BP 142/85; RESP 18
--- NOTE | 2016-09-07 12:12 | CONS ---
DATE OF ADMISSION: 09/06/2016 DATE OF CONSULTATION: 09/06/2016 REHABILITATION POST ADMISSION PHYSICIAN EVALUATION REHABILITATION IMPAIRMENT CATEGORY: Guillain-[place] syndrome. ACTIVE COMORBIDITIES: 1. Moderate cervical degenerative disk disease. 2. Acute pain. 3. Impairments in self-care and mobility. HISTORY OF PRESENT ILLNESS: The patient is a pleasant 55-year-old right-handed gentleman who was in his usual state of health until he started to notice viral GI symptoms with diarrhea. The patient presented to the hospital and went home. The patient later noted severe ascending weakness, unable to ambulate and weakness in the bilateral lower extremities in addition to upper extremities. The p atient was noted to have a 3-mm calcification in the left occipital lobe on head CT. The patient wa s also noted to have moderate degenerative disk disease at C5-C6, C6-C7. The patient was followed c naomily by neurology and felt to have Guillain-[place] Syndrome. The patient underwent IVIG for a 5-da y course. The patient has been noted to have some neurologic improvement. The patient has been natty ared to transfer to the rehabilitation unit for comprehensive interdisciplinary rehab care. FUNCTIONAL HISTORY: Prior to recent events the patient was independent in self-care tasks and mobil ity. Currently the patient requires maximal assist for self-care and maximal assist for mobility ta sks. SOCIAL HISTORY: The patient lives at home and hopes to return there upon discharge. He does have s upportive family. PAST MEDICAL HISTORY: Degenerative disk disease, noted on CT. CURRENT MEDICATIONS: 1. Colace 100 mg p.o. q.12 p.r.n. 2. [place] p.r.n. 3. Zofran p.r.n. 4. Protonix 40 mg p.o. daily. ALLERGIES: PATIENT WITH NO KNOWN DRUG ALLERGIES. PHYSICAL EXAMINATION: VITAL SIGNS: The patient is currently afebrile, with stable vital signs. HEENT: Extraocular motions are intact. Oropharynx is clear. NECK: Supple. LUNGS: Clear anteriorly. CARDIAC: S1, S2. ABDOMEN: Soft, nontender. Positive bowel sounds. NEUROLOGIC: He is awake and alert and can follow simple 1-step commands. He demonstrates antigravi ty strength in the bilateral lower extremities and bilateral shoulder flexion, elbow flexion, extens ion and finger flexion. The patient has decreased wrist extension. PLAN: The patient has been admitted for comprehensive interdisciplinary acute rehab and is anticipa jaky to tolerate 3 hours of daily therapy in divided doses for at least 5/7 days a week. The treatme nt plan will include: 1. Physical therapy to focus on bed mobility, transfers, and household ambulation, with the goal of having the patient reach a standby assist level at the wheelchair level and standby assist for ambu lation. 2. Occupational therapy to focus on hygiene, grooming, dressing, bathing, and toileting activities, with the goal of having the patient reach a standby assist level. 3. Rehabilitation nursing for carryover of therapeutic interventions, with the goal of continent of bowel and bladder, and the goal of patient and family education with regards to the aforementioned issues. In regards to the Guillain-[place] Syndrome, patient and family instructed with regards to the avoidan ce of overexertion. REHABILITATION BARRIER: Weakness. INTERVENTION FOR BARRIER: Comprehensive interdisciplinary approach. ESTIMATED LENGTH OF STAY: 14 days. DISPOSITION GOAL: Home. I acknowledge that I performed a full physical examination on this patient within 24 hours of admiss ion to the rehabilitation unit and believe the patient is a good candidate for comprehensive interdi sciplinary rehab care and is anticipated to make reasonable goals in a reasonable period of time, as outlined above. Dictated By: JERAD SHIRLEY/SHOAIB Conf#: [id number] DID#: [id number]
--- NOTE | 2016-09-07 17:39 | PN ---
Date/Time of Note Date/Time of Note DATE: 09/07/16 TIME: 17:37 Assessment/Plan VTE Prophylaxis VTE Prophylaxis Intervention: SCD's Lines/Catheters Urinary Cath still in place: No Assessment/Plan Chief Complaint/Hosp Course 1. Guillaian- BArre syndrome 2. Quadriparesis, better 3. Problems: Assessment/Plan 1. Continue physical therapy Subjective 24 Hr Interval Summary Constitutional: improved, no complaints Eyes: no complaints ENT: no complaints Respiratory: no complaints Cardiovascular: no complaints Gastrointestinal: no complaints Exam/Review of Systems Vital Signs Vitals Vital Signs Date Time Temp Pulse Resp B/P Pulse Ox O2 Delivery O2 Flow Rate FiO2 09/07/16 07:30 97.7 74 18 142/85 94 Intake and Output 09/06/16 09/06/16 09/07/16 15:00 23:00 07:00 Intake Total 480 ml Output Total 850 ml Balance -370 ml Exam Constitutional: alert, oriented, well developed Psych: no complaints Head: normocephalic Eyes: nl conjunctiva ENMT: nl external ears & nose Neck: supple Respiratory: clear to auscultation Cardiovascular: regular rate and rhythm Gastrointestinal: soft Results Result Diagram: 09/07/16 0610 09/07/16 0610 Results 24 hrs Laboratory Tests Test 09/06/16 23:10 09/07/16 06:10 Urine Color LT. YELLOW Urine Clarity CLEAR Urine pH 6.0 Urine Specific [place] 1.015 Urine Ketones NEGATIVE Urine Nitrite NEGATIVE Urine Bilirubin NEGATIVE Urine Urobilinogen 0.2 E.U./dL Urine Leukocyte Esterase NEGATIVE Urine Hemoglobin NEGATIVE Urine Glucose NEGATIVE Urine Total Protein NEGATIVE White Blood Count 6.6 Red Blood Count 4.91 Hemoglobin 15.1 Hematocrit 46.0 Mean Corpuscular Volume 93.7 Mean Corpuscular Hemoglobin 30.8 Mean Corpuscular Hemoglobin Concent 32.8 Red Cell Distribution Width 12.8 Platelet Count 376 Mean Platelet Volume 8.8 Neutrophils % 61.0 Lymphocytes % 28.7 Monocytes % 8.6 Eosinophils % 0.6 Basophils % 0.8 Nucleated Red Blood Cells % 0.0 Neutrophils # 4.0 Lymphocytes # 1.9 Monocytes # 0.6 Eosinophils # 0.0 Basophils # 0.1 Nucleated Red Blood Cells # 0.0 Sodium Level 138 Potassium Level 4.5 Chloride Level 101 Carbon Dioxide Level 30 Anion Gap 12 Blood Urea Nitrogen 19 Creatinine 0.77 Glucose Level 100 Calcium Level 9.4 Total Bilirubin 0.6 Direct Bilirubin 0.00 Indirect Bilirubin 0.6 Aspartate Amino Transf (AST/SGOT) 37 Alanine Aminotransferase (ALT/SGPT) 32 Alkaline Phosphatase 81 Total Protein 9.5 H Albumin 3.8 Globulin 5.70 H Albumin/Globulin Ratio 0.66 Medications Medications Current Medications Docusate Sodium (Colace) 100 mg Q12H PRN PO CONSTIPATION; Start 09/06/16 at 22: 30 Acetaminophen/ Hydrocodone Bitart ([place] (5/325)) 1 tab Q6H PRN PO PAIN Last administered on 09/06/16 23:19; Admin Dose 1 TAB; Start 09/06/16 at 22:30 Ondansetron HCl (Zofran Inj) 4 mg Q6H PRN IV NAUSEA AND/OR VOMITING; Start at 22:30 Pantoprazole (Protonix Tab) 40 mg DAILY@06 PO Last administered on 09/07/16 06 :48; Admin Dose 40 MG; Start 09/07/16 at 06:00 Acetaminophen (Tylenol Tab) 650 mg Q6H PRN PO PAIN AND OR ELEVATED TEMP; Start 09/06/16 at 22:30 CHRIS HERNANDEZ Sep 07, 2016 17:39
[2016-09-07 20:23] VITALS: BP 138/85; RESP 18
[2016-09-08] MEDS: PANTOPRAZOLE (EC) 40 MG TAB PO SCH (06:16)
[2016-09-08 08:00] VITALS: BP 132/90; RESP 14
--- NOTE | 2016-09-08 08:22 | CONS ---
Date/Time of Note Date/Time of Note DATE: 09/08/16 TIME: 08:22 Consult Date/Type/Reason Admit Date/Time Sep 06, 2016 at 20:13 Initial Consult Date Subjective Motivated, no complaints Objective pulm-cta abd-soft max transfer Vital Signs Date Time Temp Pulse Resp B/P Pulse Ox O2 Delivery O2 Flow Rate FiO2 09/07/16 20:23 98.8 83 18 138/85 96 Intake and Output 09/07/16 09/07/16 09/08/16 15:00 23:00 07:00 Intake Total 240 ml Balance 240 ml Results/Medications Result Diagram: 09/07/16 0610 09/07/16 0610 Medications Current Medications Docusate Sodium (Colace) 100 mg Q12H PRN PO CONSTIPATION; Start 09/06/16 at 22: 30 Acetaminophen/ Hydrocodone Bitart ([place] (5/325)) 1 tab Q6H PRN PO PAIN Last administered on 09/06/16 23:19; Admin Dose 1 TAB; Start 09/06/16 at 22:30 Ondansetron HCl (Zofran Inj) 4 mg Q6H PRN IV NAUSEA AND/OR VOMITING; Start at 22:30 Pantoprazole (Protonix Tab) 40 mg DAILY@06 PO Last administered on 09/08/16 06: 16; Admin Dose 40 MG; Start 09/07/16 at 06:00 Acetaminophen (Tylenol Tab) 650 mg Q6H PRN PO PAIN AND OR ELEVATED TEMP; Start 09/06/16 at 22:30 Assessment/Plan Additional Assessment/Plan Rehab- Guillain-[place] syndrome. patient and family education. Continue rehab Moderate cervical degenerative disk disease-denies pain JERAD PERKINS MD Sep 08, 2016 08:22
--- NOTE | 2016-09-08 11:49 | HKNOTE ---
DATE OF SERVICE: The patient is a 55-year-old right-handed male who was admitted with quadriparesis and weakness of b ilateral upper and lower extremities. The patient has a prior history of diarrhea as well as the catrachita dooley was diagnosed with Guillain-[place] syndrome. The patient has IVIG and some relative improvemen t; however, the patient is still weak and it is difficult to walk, in which I had recommended the catrachita dooley to go for acute rehab for more evaluation and treatment. The patient had an MRI of his neck t hat showed some degenerative disk disease, for which neurosurgery evaluated him, and found the patie nt is not a candidate for any surgical interference at this point. CURRENT MEDICATIONS: Include Colace 100 mg every 12 hours as needed, [place] 325/5 mg every 4 hours a s needed, Protonix 40 mg once a day. ALLERGIES: NO ALLERGIES TO MEDICATIONS. PHYSICAL EXAMINATION: GENERAL: The patient is alert, awake, oriented to time, place and person. Normal speech and celio l language. CRANIAL NERVES: Cranial nerve II: Pupils equal on both sides, reactive to light. Cranial nerves I II, IV and : Extraocular movements intact. Cranial nerve V: Equal sensation to face. Cranial n erve VII: Symmetrical face. Cranial nerve VIII: Decreased hearing bilaterally. Cranial nerve X: Elevates palate. Cranial nerve XI: Elevates shoulder 5/5. Cranial nerve XII: Straight tongue. Motor examination: Moving both upper and lower extremities against gravity, which is scored 4/5. G ait with difficulty and needs assistance. ASSESSMENT AND PLAN: 1. The patient is a 55-year-old male with Guillain-[place] syndrome. The patient has IVIG treatment. We will continue the patient on the treatment of physical meds and rehab, and if the patient needs physical therapy will get evaluation and occupational therapy for bilateral upper extremities inclu ding dressing, grooming, bathing, toilet activity. 2. We will follow up the patient how he is improving. 3. Constipation, will give the patient Colace 100 mg twice a day as needed. 4. Nausea, give the patient Zofran 4 mg every 4 hours as needed. Again, thank you for asking me to see the patient with you. Dictated By: CANDICE BATISTA/SHOAIB Conf#: [id number] DID#: [id number] CC: FRANCISCO GILMORE MD;*[facility]*
--- NOTE | 2016-09-08 15:50 | PN ---
Date/Time of Note Date/Time of Note DATE: 09/08/16 TIME: 15:49 Assessment/Plan VTE Prophylaxis VTE Prophylaxis Intervention: ambulation Lines/Catheters Urinary Cath still in place: No Assessment/Plan Chief Complaint/Hosp Course 1. Guillaian- BArre syndrome 2. Quadriparesis, better 3. Problems: Assessment/Plan 1. Continue PT Subjective 24 Hr Interval Summary Constitutional: improved, no complaints Exam/Review of Systems Vital Signs Vitals Vital Signs Date Time Temp Pulse Resp B/P Pulse Ox O2 Delivery O2 Flow Rate FiO2 09/08/16 08:00 97.3 78 14 132/90 94 Intake and Output 09/07/16 09/07/16 09/08/16 15:00 23:00 07:00 Intake Total 240 ml Balance 240 ml Exam Constitutional: alert, oriented Gastrointestinal: soft Musculoskeletal: muscle weakness Results Result Diagram: 09/07/16 0610 09/07/16 0610 Medications Medications Current Medications Docusate Sodium (Colace) 100 mg Q12H PRN PO CONSTIPATION; Start 09/06/16 at 22: 30 Acetaminophen/ Hydrocodone Bitart ([place] (5/325)) 1 tab Q6H PRN PO PAIN Last administered on 09/06/16 23:19; Admin Dose 1 TAB; Start 09/06/16 at 22:30 Ondansetron HCl (Zofran Inj) 4 mg Q6H PRN IV NAUSEA AND/OR VOMITING; Start at 22:30 Pantoprazole (Protonix Tab) 40 mg DAILY@06 PO Last administered on 09/08/16 06: 16; Admin Dose 40 MG; Start 09/07/16 at 06:00 Acetaminophen (Tylenol Tab) 650 mg Q6H PRN PO PAIN AND OR ELEVATED TEMP; Start 09/06/16 at 22:30 CHRIS HERNANDEZ Sep 08, 2016 15:50
[2016-09-08 20:19] VITALS: BP 124/84; RESP 18
[2016-09-08] MEDS: HYDROCODONE/APAP (5/325) TAB PO PRN (23:10)
[2016-09-09] MEDS: ACETAMINOPHEN 325 MG TAB PO PRN (03:13)
[2016-09-09] MEDS: PANTOPRAZOLE (EC) 40 MG TAB PO SCH (06:28)
[2016-09-09 07:30] VITALS: BP 128/74; RESP 18
--- NOTE | 2016-09-09 17:18 | PN ---
Date/Time of Note Date/Time of Note DATE: 09/09/16 TIME: 17:16 Assessment/Plan VTE Prophylaxis VTE Prophylaxis Intervention: other Lines/Catheters Urinary Cath still in place: No Assessment/Plan Chief Complaint/Hosp Course 1. Guillaian- BArre syndrome 2. Quadriparesis, better 3 s/p plasmapheresis plan pt ot Problems: Subjective 24 Hr Interval Summary Cardiovascular: no complaints Gastrointestinal: no complaints Genitourinary: no complaints Exam/Review of Systems Vital Signs Vitals Vital Signs Date Time Temp Pulse Resp B/P Pulse Ox O2 Delivery O2 Flow Rate FiO2 09/09/16 07:30 98.5 101 18 128/74 95 Intake and Output 09/08/16 09/08/16 09/09/16 15:00 23:00 07:00 Intake Total 720 ml 240 ml Output Total 350 ml Balance 720 ml -110 ml Exam Neck: supple Respiratory: clear to auscultation Cardiovascular: regular rate and rhythm Gastrointestinal: soft Musculoskeletal: muscle weakness (better) Results Result Diagram: 09/07/16 0610 09/07/16 0610 Medications Medications Current Medications Docusate Sodium (Colace) 100 mg Q12H PRN PO CONSTIPATION; Start 09/06/16 at 22: 30 Acetaminophen/ Hydrocodone Bitart ([place] (5/325)) 1 tab Q6H PRN PO PAIN Last administered on 09/08/16 23:10; Admin Dose 1 TAB; Start 09/06/16 at 22:30 Ondansetron HCl (Zofran Inj) 4 mg Q6H PRN IV NAUSEA AND/OR VOMITING; Start at 22:30 Pantoprazole (Protonix Tab) 40 mg DAILY@06 PO Last administered on 09/09/16 06: 28; Admin Dose 40 MG; Start 09/07/16 at 06:00 Acetaminophen (Tylenol Tab) 650 mg Q6H PRN PO PAIN AND OR ELEVATED TEMP Last administered on 09/09/16 03:13; Admin Dose 650 MG; Start 09/06/16 at 22:30 FRANCISCO GILMORE MD Sep 09, 2016 17:18
[2016-09-09 19:47] VITALS: BP 130/60; RESP 19
[2016-09-10] MEDS: PANTOPRAZOLE (EC) 40 MG TAB PO SCH (06:17)
[2016-09-10 07:30] VITALS: BP 121/87; RESP 18
--- NOTE | 2016-09-10 12:17 | CONS ---
Date/Time of Note Date/Time of Note DATE: 09/10/16 TIME: 12:17 Consult Date/Type/Reason Admit Date/Time Sep 06, 2016 at 20:13 Subjective Comfortable Objective Vital Signs Date Time Temp Pulse Resp B/P Pulse Ox O2 Delivery O2 Flow Rate FiO2 09/10/16 07:30 97.8 96 18 121/87 96 Intake and Output 09/09/16 09/09/16 09/10/16 15:00 23:00 07:00 Intake Total 1100 ml 500 ml Output Total 1 ml Balance 1099 ml 500 ml INTERDISCIPLINARY TEAM CONFERENCE BOWEL- Cont BLADDER-Cont SKIN- intact OT- DRESSING-max BATHING-max TOILETING-max PT- BED MOBILITY-max TRANSFERS-max AMBULATION-mod 30 feet A/P- Interdisciplinary team conference held today. Please see interdisciplinary sheet. Working toward d.c. on 09/19 with post discharge follow up of physical therapy, occupational therapy. Results/Medications Result Diagram: 09/07/16 0610 09/07/16 0610 Medications Current Medications Docusate Sodium (Colace) 100 mg Q12H PRN PO CONSTIPATION; Start 09/06/16 at 22: 30 Acetaminophen/ Hydrocodone Bitart ([place] (5/325)) 1 tab Q6H PRN PO PAIN Last administered on 09/08/16 23:10; Admin Dose 1 TAB; Start 09/06/16 at 22:30 Ondansetron HCl (Zofran Inj) 4 mg Q6H PRN IV NAUSEA AND/OR VOMITING; Start at 22:30 Pantoprazole (Protonix Tab) 40 mg DAILY@06 PO Last administered on 09/10/16 06: 17; Admin Dose 40 MG; Start 09/07/16 at 06:00 Acetaminophen (Tylenol Tab) 650 mg Q6H PRN PO PAIN AND OR ELEVATED TEMP Last administered on 09/09/16 03:13; Admin Dose 650 MG; Start 09/06/16 at 22:30 JERAD PERKINS MD Sep 10, 2016 12:17
--- NOTE | 2016-09-10 19:18 | PN ---
Date/Time of Note Date/Time of Note DATE: 09/10/16 TIME: 19:17 Assessment/Plan VTE Prophylaxis VTE Prophylaxis Intervention: other Lines/Catheters Urinary Cath still in place: No Assessment/Plan Chief Complaint/Hosp Course 1. Guillaian- BArre syndrome 2. Quadriparesis, better 3 s/p ivig plan pt ot Problems: Subjective 24 Hr Interval Summary Respiratory: no complaints Cardiovascular: no complaints Neurologic: other (weakness better) Exam/Review of Systems Vital Signs Vitals Vital Signs Date Time Temp Pulse Resp B/P Pulse Ox O2 Delivery O2 Flow Rate FiO2 09/10/16 07:30 97.8 96 18 121/87 96 Intake and Output 09/09/16 09/09/16 09/10/16 15:00 23:00 07:00 Intake Total 1100 ml 500 ml Output Total 1 ml Balance 1099 ml 500 ml Exam Respiratory: clear to auscultation Cardiovascular: regular rate and rhythm Gastrointestinal: soft Musculoskeletal: nl extremities to inspection Extremities: normal pulses Results Result Diagram: 09/07/16 0610 09/07/16 0610 Medications Medications Current Medications Docusate Sodium (Colace) 100 mg Q12H PRN PO CONSTIPATION; Start 09/06/16 at 22: 30 Acetaminophen/ Hydrocodone Bitart ([place] (5/325)) 1 tab Q6H PRN PO PAIN Last administered on 09/08/16 23:10; Admin Dose 1 TAB; Start 09/06/16 at 22:30 Ondansetron HCl (Zofran Inj) 4 mg Q6H PRN IV NAUSEA AND/OR VOMITING; Start at 22:30 Pantoprazole (Protonix Tab) 40 mg DAILY@06 PO Last administered on 09/10/16 06: 17; Admin Dose 40 MG; Start 09/07/16 at 06:00 Acetaminophen (Tylenol Tab) 650 mg Q6H PRN PO PAIN AND OR ELEVATED TEMP Last administered on 09/09/16 03:13; Admin Dose 650 MG; Start 09/06/16 at 22:30 FRANCISCO GILMORE MD Sep 10, 2016 19:18
[2016-09-10 19:27] VITALS: BP 127/83; RESP 18
[2016-09-11] MEDS: HYDROCODONE/APAP (5/325) TAB PO PRN (03:00)
[2016-09-11] MEDS: PANTOPRAZOLE (EC) 40 MG TAB PO SCH (05:55)
[2016-09-11 08:06] VITALS: BP 135/90; RESP 18
--- NOTE | 2016-09-11 11:58 | CONS ---
Date/Time of Note Date/Time of Note DATE: 09/11/16 TIME: 11:57 Consult Date/Type/Reason Admit Date/Time Sep 06, 2016 at 20:13 Subjective Comfortable Objective pulm-cta abd-soft mod assist ambulation Vital Signs Date Time Temp Pulse Resp B/P Pulse Ox O2 Delivery O2 Flow Rate FiO2 09/11/16 08:06 97.9 78 18 135/90 98 Intake and Output 09/10/16 09/10/16 09/11/16 15:00 23:00 07:00 Intake Total 520 ml 1300 ml Balance 520 ml 1300 ml Results/Medications Result Diagram: 09/07/16 0610 09/07/16 0610 Medications Current Medications Docusate Sodium (Colace) 100 mg Q12H PRN PO CONSTIPATION; Start 09/06/16 at 22: 30 Acetaminophen/ Hydrocodone Bitart ([place] (5/325)) 1 tab Q6H PRN PO PAIN Last administered on 09/11/16 03:00; Admin Dose 1 TAB; Start 09/06/16 at 22:30 Ondansetron HCl (Zofran Inj) 4 mg Q6H PRN IV NAUSEA AND/OR VOMITING; Start at 22:30 Pantoprazole (Protonix Tab) 40 mg DAILY@06 PO Last administered on 09/11/16 05: 55; Admin Dose 40 MG; Start 09/07/16 at 06:00 Acetaminophen (Tylenol Tab) 650 mg Q6H PRN PO PAIN AND OR ELEVATED TEMP Last administered on 09/09/16 03:13; Admin Dose 650 MG; Start 09/06/16 at 22:30 Assessment/Plan Additional Assessment/Plan Rehab- Guillain-[place] syndrome. Continue rehab treatment program, while avoiding over exertion Moderate cervical degenerative disk disease-stable JERAD PERKINS MD Sep 11, 2016 11:58
[2016-09-11] MEDS: ACETAMINOPHEN 325 MG TAB PO PRN (12:19)
[2016-09-11 19:08] VITALS: BP 119/83; RESP 18
--- NOTE | 2016-09-11 21:27 | PN ---
Date/Time of Note Date/Time of Note DATE: 09/11/16 TIME: 21:26 Assessment/Plan VTE Prophylaxis VTE Prophylaxis Intervention: other Lines/Catheters Urinary Cath still in place: No Assessment/Plan Chief Complaint/Hosp Course 1. Guillaian- BArre syndrome 2. Quadriparesis, better 3 s/p ivig plan pt ot Problems: Subjective 24 Hr Interval Summary Gastrointestinal: no complaints Exam/Review of Systems Vital Signs Vitals Vital Signs Date Time Temp Pulse Resp B/P Pulse Ox O2 Delivery O2 Flow Rate FiO2 09/11/16 19:08 98.7 90 18 119/83 98 Intake and Output 09/10/16 09/10/16 09/11/16 15:00 23:00 07:00 Intake Total 520 ml 1300 ml Balance 520 ml 1300 ml Exam Respiratory: clear to auscultation Cardiovascular: regular rate and rhythm Gastrointestinal: soft Extremities: normal pulses Results Result Diagram: 09/07/1610 09/07/16 0610 Medications Medications Current Medications Docusate Sodium (Colace) 100 mg Q12H PRN PO CONSTIPATION; Start 09/06/16 at 22: 30 Acetaminophen/ Hydrocodone Bitart ([place] (5/325)) 1 tab Q6H PRN PO PAIN Last administered on 09/11/16 03:00; Admin Dose 1 TAB; Start 09/06/16 at 22:30 Ondansetron HCl (Zofran Inj) 4 mg Q6H PRN IV NAUSEA AND/OR VOMITING; Start at 22:30 Pantoprazole (Protonix Tab) 40 mg DAILY@06 PO Last administered on 09/11/16 05: 55; Admin Dose 40 MG; Start 09/07/16 at 06:00 Acetaminophen (Tylenol Tab) 650 mg Q6H PRN PO PAIN AND OR ELEVATED TEMP Last administered on 09/11/16 12:19; Admin Dose 650 MG; Start 09/06/16 at 22:30 FRANCISCO GILMORE MD Sep 11, 2016 21:27
--- NOTE | 2016-09-11 21:28 | PN ---
Date/Time of Note Date/Time of Note DATE: 09/11/16 TIME: 21:27 Assessment/Plan VTE Prophylaxis VTE Prophylaxis Intervention: other Lines/Catheters Urinary Cath still in place: No Assessment/Plan Chief Complaint/Hosp Course 1. Guillaian- BArre syndrome 2. Quadriparesis, better 3 s/p ivig plan pt ot Problems: Subjective 24 Hr Interval Summary Genitourinary: no complaints Neurologic: no complaints Exam/Review of Systems Vital Signs Vitals Vital Signs Date Time Temp Pulse Resp B/P Pulse Ox O2 Delivery O2 Flow Rate FiO2 09/11/16 19:08 98.7 90 18 119/83 98 Intake and Output 09/10/16 09/10/16 09/11/16 15:00 23:00 07:00 Intake Total 520 ml 1300 ml Balance 520 ml 1300 ml Exam Cardiovascular: regular rate and rhythm Gastrointestinal: soft Neurological: other (NO CHANGE) Results Result Diagram: 09/07/16 0610 09/07/16 0610 Medications Medications Current Medications Docusate Sodium (Colace) 100 mg Q12H PRN PO CONSTIPATION; Start 09/06/16 at 22: 30 Acetaminophen/ Hydrocodone Bitart ([place] (5/325)) 1 tab Q6H PRN PO PAIN Last administered on 09/11/16 03:00; Admin Dose 1 TAB; Start 09/06/16 at 22:30 Ondansetron HCl (Zofran Inj) 4 mg Q6H PRN IV NAUSEA AND/OR VOMITING; Start at 22:30 Pantoprazole (Protonix Tab) 40 mg DAILY@06 PO Last administered on 09/11/16 05: 55; Admin Dose 40 MG; Start 09/07/16 at 06:00 Acetaminophen (Tylenol Tab) 650 mg Q6H PRN PO PAIN AND OR ELEVATED TEMP Last administered on 09/11/16 12:19; Admin Dose 650 MG; Start 09/06/16 at 22:30 FRANCISCO GILMORE MD Sep 11, 2016 21:28
[2016-09-12] MEDS: PANTOPRAZOLE (EC) 40 MG TAB PO SCH (06:00)
[2016-09-12 07:35] VITALS: BP 120/83; RESP 18
--- NOTE | 2016-09-12 10:45 | CONS ---
Date/Time of Note Date/Time of Note DATE: 09/12/16 TIME: 10:44 Consult Date/Type/Reason Admit Date/Time Sep 06, 2016 at 20:13 Subjective Tired today Objective pulm-cta abd-soft mod transfer and ambulation Vital Signs Date Time Temp Pulse Resp B/P Pulse Ox O2 Delivery O2 Flow Rate FiO2 09/12/16 07:35 98.0 107 18 120/83 98 Intake and Output 09/11/16 09/11/16 09/12/16 14:59 22:59 06:59 Intake Total 1250 ml 600 ml 1000 ml Output Total 400 ml Balance 1250 ml 600 ml 600 ml Results/Medications Medications Current Medications Docusate Sodium (Colace) 100 mg Q12H PRN PO CONSTIPATION; Start 09/06/16 at 22: 30 Acetaminophen/ Hydrocodone Bitart ([place] (5/325)) 1 tab Q6H PRN PO PAIN Last administered on 09/11/16 03:00; Admin Dose 1 TAB; Start 09/06/16 at 22:30 Ondansetron HCl (Zofran Inj) 4 mg Q6H PRN IV NAUSEA AND/OR VOMITING; Start at 22:30 Pantoprazole (Protonix Tab) 40 mg DAILY@06 PO Last administered on 09/12/16 06: 00; Admin Dose 40 MG; Start 09/07/16 at 06:00 Acetaminophen (Tylenol Tab) 650 mg Q6H PRN PO PAIN AND OR ELEVATED TEMP Last administered on 09/11/16 12:19; Admin Dose 650 MG; Start 09/06/16 at 22:30 Assessment/Plan Additional Assessment/Plan Rehab- Guillain-[place] syndrome. Continue rehab activities while avoiding over exertion Moderate cervical degenerative disk disease-stable JERAD PERKINS MD Sep 12, 2016 10:45
[2016-09-12] MEDS: HYDROCODONE/APAP (5/325) TAB PO PRN ×2 (15:04→22:17)
--- NOTE | 2016-09-12 16:04 | RADRPT ---
PROCEDURE: US Lower extremity Venous. CLINICAL INDICATION: Right leg pain TECHNIQUE: Multiple sonographic images of the right lower extremity deep venous system was obtaine d utilizing grayscale, color-flow, compressive sonography and doppler imaging with augmentation. Th e images were reviewed on a PACS workstation. COMPARISON: None. FINDINGS: There is normal compressibility and flow within the right common femoral, superficial femoral, poste rior tibial, peroneal and popliteal veins. RPTAT: AA IMPRESSION: No sonographic evidence for deep venous thrombosis. .Yogesh Campo MD, MD Date Time Electronically viewed and signed by .Yogesh Campo MD, on 09/12/2016 16:04 .S/
[2016-09-12 20:09] VITALS: BP 134/84; RESP 18
--- NOTE | 2016-09-12 20:15 | PN ---
Date/Time of Note Date/Time of Note DATE: 09/12/16 TIME: 20:14 Assessment/Plan VTE Prophylaxis VTE Prophylaxis Intervention: other Lines/Catheters Urinary Cath still in place: No Assessment/Plan Chief Complaint/Hosp Course 1. Guillaian- BArre syndrome 2. Quadriparesis, better 3 s/p ivig plan pt ot Problems: Subjective 24 Hr Interval Summary Cardiovascular: no complaints Gastrointestinal: no complaints Exam/Review of Systems Vital Signs Vitals Vital Signs Date Time Temp Pulse Resp B/P Pulse Ox O2 Delivery O2 Flow Rate FiO2 09/12/16 20:09 97.8 98 18 134/84 98 Intake and Output 09/11/16 09/11/16 09/12/16 15:00 23:00 07:00 Intake Total 1250 ml 600 ml 1000 ml Output Total 400 ml Balance 1250 ml 600 ml 600 ml Exam Neck: supple Respiratory: clear to auscultation Cardiovascular: regular rate and rhythm Gastrointestinal: soft Medications Medications Current Medications Docusate Sodium (Colace) 100 mg Q12H PRN PO CONSTIPATION; Start 09/06/16 at 22: 30 Acetaminophen/ Hydrocodone Bitart ([place] (5/325)) 1 tab Q6H PRN PO PAIN Last administered on 09/12/16 15:04; Admin Dose 1 TAB; Start 09/06/16 at 22:30 Ondansetron HCl (Zofran Inj) 4 mg Q6H PRN IV NAUSEA AND/OR VOMITING; Start at 22:30 Pantoprazole (Protonix Tab) 40 mg DAILY@06 PO Last administered on 09/12/16 06: 00; Admin Dose 40 MG; Start 09/07/16 at 06:00 Acetaminophen (Tylenol Tab) 650 mg Q6H PRN PO PAIN AND OR ELEVATED TEMP Last administered on 09/11/16 12:19; Admin Dose 650 MG; Start 09/06/16 at 22:30 FRANCISCO GILMORE MD Sep 12, 2016 20:15
[2016-09-13] MEDS: PANTOPRAZOLE (EC) 40 MG TAB PO SCH (06:39)
[2016-09-13] MEDS: HYDROCODONE/APAP (5/325) TAB PO PRN ×2 (07:24→20:58)
[2016-09-13 07:30] VITALS: BP 125/84; RESP 18
--- NOTE | 2016-09-13 13:30 | PN ---
Date/Time of Note Date/Time of Note DATE: 09/13/16 TIME: 13:26 Assessment/Plan VTE Prophylaxis VTE Prophylaxis Intervention: other Lines/Catheters Urinary Cath still in place: No Assessment/Plan Assessment/Plan 1. Guillain-[place] syndrome with quadriparesis, impaired mobility/gait/ADLs. Continue PT/OT, continuing to progress. Ambulating with min assist 60ft +20ft+ 20ft+20ft with walker. Medical management per neurology, S/p IVIG. 2. Cervical degenerative disc disease/spinal canal stenosis. Pain control as needed. 3. Right calf pain. RLE venous doppler did not show any evidence of DVT. Continue to closely monitor. Consider further work up if pain not improving. Subjective 24 Hr Interval Summary Free Text/Dictation Rehab progress note Subjective: Reports right calf pain that started earlier in the week, denies any new trauma or fall, minimal to moderate pain. Denies any other associated symptoms. No new paresthesias or new weakness. ROS: No chest pain, no shortness of breath, no abdominal pain, no nausea, no vomiting, no chills. Exam/Review of Systems Vital Signs Vitals Vital Signs Date Time Temp Pulse Resp B/P Pulse Ox O2 Delivery O2 Flow Rate FiO2 09/13/16 07:30 98.3 77 18 125/84 94 Intake and Output 09/12/16 09/12/16 09/13/16 15:00 23:00 07:00 Intake Total 1200 ml 600 ml Balance 1200 ml 600 ml Exam General: Awake, alert, no acute distress CV: Regular rate, s1s2 Lungs: Symmetrical air entry bilaterally, no wheezing Abdomen soft, nontender Extremities: Tenderness over the proximal portion of right calf without erythema or warmth. No cyanosis, no new swelling. Neuro: No new focal changes. Quadriparesis, improving overall per patient report. Follows simple commands Medications Medications Current Medications Docusate Sodium (Colace) 100 mg Q12H PRN PO CONSTIPATION; Start 09/06/16 at 22: 30 Acetaminophen/ Hydrocodone Bitart ([place] (5/325)) 1 tab Q6H PRN PO PAIN Last administered on 09/13/16 07:24; Admin Dose 1 TAB; Start 09/06/16 at 22:30 Ondansetron HCl (Zofran Inj) 4 mg Q6H PRN IV NAUSEA AND/OR VOMITING; Start at 22:30 Pantoprazole (Protonix Tab) 40 mg DAILY@06 PO Last administered on 09/13/16 06: 39; Admin Dose 40 MG; Start 09/07/16 at 06:00 Acetaminophen (Tylenol Tab) 650 mg Q6H PRN PO PAIN AND OR ELEVATED TEMP Last administered on 09/11/16 12:19; Admin Dose 650 MG; Start 09/06/16 at 22:30 QUINCY FERRIS Sep 13, 2016 13:30
[2016-09-13 20:00] VITALS: BP 128/84; RESP 18
--- NOTE | 2016-09-13 21:03 | PN ---
Date/Time of Note Date/Time of Note DATE: 09/13/16 TIME: 21:02 Assessment/Plan VTE Prophylaxis VTE Prophylaxis Intervention: other Lines/Catheters Urinary Cath still in place: No Assessment/Plan Chief Complaint/Hosp Course 1. 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 Quadriparesis, better 3 s/p ivig plan pt ot ck labs us neg legs Problems: Subjective 24 Hr Interval Summary Respiratory: no complaints Cardiovascular: no complaints Gastrointestinal: no complaints Musculoskeletal: other (weakness+) Skin: no complaints Neurologic: other (weakness stable) Exam/Review of Systems Vital Signs Vitals Vital Signs Date Time Temp Pulse Resp B/P Pulse Ox O2 Delivery O2 Flow Rate FiO2 09/13/16 20:00 98.6 91 18 128/84 96 Intake and Output 09/12/16 09/12/16 09/13/16 15:00 23:00 07:00 Intake Total 1200 ml 600 ml Balance 1200 ml 600 ml Exam Cardiovascular: regular rate and rhythm Gastrointestinal: soft Musculoskeletal: nl extremities to inspection Extremities: normal pulses Medications Medications Current Medications Docusate Sodium (Colace) 100 mg Q12H PRN PO CONSTIPATION; Start 09/06/16 at 22: 30 Acetaminophen/ Hydrocodone Bitart ([place] (5/325)) 1 tab Q6H PRN PO PAIN Last administered on 09/13/16 20:58; Admin Dose 1 TAB; Start 09/06/16 at 22:30 Ondansetron HCl (Zofran Inj) 4 mg Q6H PRN IV NAUSEA AND/OR VOMITING; Start at 22:30 Pantoprazole (Protonix Tab) 40 mg DAILY@06 PO Last administered on 09/13/16 06: 39; Admin Dose 40 MG; Start 09/07/16 at 06:00 Acetaminophen (Tylenol Tab) 650 mg Q6H PRN PO PAIN AND OR ELEVATED TEMP Last administered on 09/11/16 12:19; Admin Dose 650 MG; Start 09/06/16 at 22:30 FRANCISCO GILMORE MD Sep 13, 2016 21:03
[2016-09-14] MEDS: PANTOPRAZOLE (EC) 40 MG TAB PO SCH (06:20)
[2016-09-14 07:05] LABS: ADD SCAN DIFF NO
[2016-09-14 07:11] LABS: BASOPHIL # 0.1 10^3/ul (0.0-0.1); BASOPHILS % 0.8 % (0.0-2.0); EOSINOPHILS # 0.1 10^3/ul (0.0-0.5); EOSINOPHILS % 0.9 % (0.0-7.0); HEMATOCRIT 46.3 % (42.0-52.0); HEMOGLOBIN 15.4 g/dl (14.0-18.0); LYMPHOCYTES # 2.1 10^3/ul (0.8-2.9); MEAN CORPUSCULAR HEMOGLOBIN 31.2 pg (29.0-33.0); MEAN CORPUSCULAR HGB CONC 33.3 g/dl (32.0-37.0); MEAN CORPUSCULAR VOLUME 93.7 fl (82.0-101.0); MONOCYTE # 0.6 10^3/ul (0.3-0.9); MONOCYTES % 9.7 % (0.0-11.0); NEUTROPHIL # 3.6 10^3/ul (1.6-7.5); NEUTROPHILS % 55.4 % (39.0-77.0); PLATELET COUNT 292 10^3/UL (140-415); RED BLOOD COUNT 4.94 10^6/ul (4.70-6.10); RED CELL DISTRIBUTION WIDTH 12.6 % (11.5-14.5); WHITE BLOOD COUNT 6.4 10^3/ul (4.8-10.8)
[2016-09-14 07:30] VITALS: BP 129/84; RESP 18
[2016-09-14 07:39] LABS: ALBUMIN 3.6 g/dl (3.3-4.9); ALBUMIN/GLOBULIN RATIO 0.81; BILIRUBIN,INDIRECT 0.5 mg/dl (0-1.1); BILIRUBIN,TOTAL 0.5 mg/dl (0.2-1.3); CALCIUM 9.2 mg/dl (8.4-10.2); CREATININE 0.77 mg/dl (0.61-1.24); POTASSIUM 4.6 mmol/L (3.5-5.1)
[2016-09-14] MEDS: HYDROCODONE/APAP (5/325) TAB PO PRN ×2 (08:16→23:10)
--- NOTE | 2016-09-14 10:25 | PN ---
Date/Time of Note Date/Time of Note DATE: 09/14/16 TIME: 10:15 Assessment/Plan VTE Prophylaxis VTE Prophylaxis Intervention: other Lines/Catheters Urinary Cath still in place: No Assessment/Plan Assessment/Plan 1. Guillain-[place] syndrome with quadriparesis, impaired mobility/gait/ADLs. Continue PT/OT, continuing to progress. Currently SBA with rolling, Min A with supine to sit and sit to stand, min assist for transfers. Medical management per neurology, S/p IVIG. 2. Cervical degenerative disc disease/spinal canal stenosis. Continue pain control. 3. Right calf pain. Unclear etiology. Venous doppler did not show evidence of DVT. Possible overuse injury, avoid overexertion. Would hold gait training for now, try icing and analgesics, and monitor response. Subjective 24 Hr Interval Summary Free Text/Dictation Rehab progress note Subjective: Reports continued pain in right calf, thinks he "overdid it" with therapies yesterday. ROS: Denies new weakness, no new paresthesias, no shortness of breath, no chest pain, no abdominal pain, no nausea, no chills. Exam/Review of Systems Vital Signs Vitals Vital Signs Date Time Temp Pulse Resp B/P Pulse Ox O2 Delivery O2 Flow Rate FiO2 09/14/16 07:30 98.5 75 18 129/84 94 Intake and Output 09/13/16 09/13/16 09/14/16 15:00 23:00 07:00 Intake Total 820 ml Balance 820 ml Exam General: Awake, alert, no acute distress CV: Regular rate, s1s2 Lungs: Clear to auscultation, no wheezing Abdomen soft, nontender Extremities: Tenderness proximal region of calf, no new swelling, no redness, no warmth Neuro: No new focal changes. Follows simple commands. Results Result Diagram: 09/14/16 0620 09/14/16 0620 Results 24 hrs Laboratory Tests Test 09/14/16 06:20 White Blood Count 6.4 Red Blood Count 4.94 Hemoglobin 15.4 Hematocrit 46.3 Mean Corpuscular Volume 93.7 Mean Corpuscular Hemoglobin 31.2 Mean Corpuscular Hemoglobin Concent 33.3 Red Cell Distribution Width 12.6 Platelet Count 292 # Mean Platelet Volume 9.0 Neutrophils % 55.4 Lymphocytes % 33.0 Monocytes % 9.7 Eosinophils % 0.9 Basophils % 0.8 Nucleated Red Blood Cells % 0.0 Neutrophils # 3.6 Lymphocytes # 2.1 Monocytes # 0.6 Eosinophils # 0.1 Basophils # 0.1 Nucleated Red Blood Cells # 0.0 Sodium Level 138 Potassium Level 4.6 Chloride Level 102 Carbon Dioxide Level 29 Anion Gap 12 Blood Urea Nitrogen 21 H Creatinine 0.77 Glucose Level 88 Calcium Level 9.2 Total Bilirubin 0.5 Direct Bilirubin 0.00 Indirect Bilirubin 0.5 Aspartate Amino Transf (AST/SGOT) 49 H Alanine Aminotransferase (ALT/SGPT) 68 Alkaline Phosphatase 92 Total Protein 8.0 Albumin 3.6 Globulin 4.40 H Albumin/Globulin Ratio 0.81 Medications Medications Current Medications Docusate Sodium (Colace) 100 mg Q12H PRN PO CONSTIPATION; Start 09/06/16 at 22: 30 Acetaminophen/ Hydrocodone Bitart ([place] (5/325)) 1 tab Q6H PRN PO PAIN Last administered on 09/14/16 08:16; Admin Dose 1 TAB; Start 09/06/16 at 22:30 Ondansetron HCl (Zofran Inj) 4 mg Q6H PRN IV NAUSEA AND/OR VOMITING; Start at 22:30 Pantoprazole (Protonix Tab) 40 mg DAILY@06 PO Last administered on 09/14/16 06: 20; Admin Dose 40 MG; Start 09/07/16 at 06:00 Acetaminophen (Tylenol Tab) 650 mg Q6H PRN PO PAIN AND OR ELEVATED TEMP Last administered on 09/11/16 12:19; Admin Dose 650 MG; Start 09/06/16 at 22:30 QUINCY FERRIS Sep 14, 2016 10:25
[2016-09-14 20:00] VITALS: BP 128/89; RESP 18
--- NOTE | 2016-09-15 00:24 | CONS ---
Date/Time of Note Date/Time of Note DATE: 09/15/16 TIME: 00:23 Assessment/Plan Assessment/Plan Chief Complaint/Hosp Course 1. 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 Quadriparesis, better 3 s/p ivig plan pt ot ck labs us neg legs Problems: Consultation Date/Type/Reason Admit Date/Time Sep 06, 2016 at 20:13 Initial Consult Date Type of Consultation: renal 24 HR Interval Summary Constitutional: improved Exam/Review of Systems Vital Signs Vitals Vital Signs Date Time Temp Pulse Resp B/P Pulse Ox O2 Delivery O2 Flow Rate FiO2 09/14/16 20:00 98.5 93 18 128/89 95 Intake and Output 09/14/16 09/14/16 09/15/16 15:00 23:00 07:00 Intake Total 1200 ml 1080 ml Balance 1200 ml 1080 ml Exam Neck: supple Respiratory: clear to auscultation Gastrointestinal: soft Genitourinary - Male: nl penis Results Result Diagram: 09/14/16 0620 09/14/16 0620 Results 24 hrs Laboratory Tests Test 09/14/16 06:20 White Blood Count 6.4 Red Blood Count 4.94 Hemoglobin 15.4 Hematocrit 46.3 Mean Corpuscular Volume 93.7 Mean Corpuscular Hemoglobin 31.2 Mean Corpuscular Hemoglobin Concent 33.3 Red Cell Distribution Width 12.6 Platelet Count 292 # Mean Platelet Volume 9.0 Neutrophils % 55.4 Lymphocytes % 33.0 Monocytes % 9.7 Eosinophils % 0.9 Basophils % 0.8 Nucleated Red Blood Cells % 0.0 Neutrophils # 3.6 Lymphocytes # 2.1 Monocytes # 0.6 Eosinophils # 0.1 Basophils # 0.1 Nucleated Red Blood Cells # 0.0 Sodium Level 138 Potassium Level 4.6 Chloride Level 102 Carbon Dioxide Level 29 Anion Gap 12 Blood Urea Nitrogen 21 H Creatinine 0.77 Glucose Level 88 Calcium Level 9.2 Total Bilirubin 0.5 Direct Bilirubin 0.00 Indirect Bilirubin 0.5 Aspartate Amino Transf (AST/SGOT) 49 H Alanine Aminotransferase (ALT/SGPT) 68 Alkaline Phosphatase 92 Total Protein 8.0 Albumin 3.6 Globulin 4.40 H Albumin/Globulin Ratio 0.81 Medications Medications Current Medications Docusate Sodium (Colace) 100 mg Q12H PRN PO CONSTIPATION; Start 09/06/16 at 22: 30 Acetaminophen/ Hydrocodone Bitart ([place] (5/325)) 1 tab Q6H PRN PO PAIN Last administered on 09/14/16 23:10; Admin Dose 1 TAB; Start 09/06/16 at 22:30 Ondansetron HCl (Zofran Inj) 4 mg Q6H PRN IV NAUSEA AND/OR VOMITING; Start at 22:30 Pantoprazole (Protonix Tab) 40 mg DAILY@06 PO Last administered on 09/14/16 06: 20; Admin Dose 40 MG; Start 09/07/16 at 06:00 Acetaminophen (Tylenol Tab) 650 mg Q6H PRN PO PAIN AND OR ELEVATED TEMP Last administered on 09/11/16 12:19; Admin Dose 650 MG; Start 09/06/16 at 22:30 FRANCISCO GILMORE MD Sep 15, 2016 00:24
[2016-09-15] MEDS: PANTOPRAZOLE (EC) 40 MG TAB PO SCH (06:11)
--- NOTE | 2016-09-15 10:09 | PN ---
Date/Time of Note Date/Time of Note DATE: 09/15/16 TIME: 10:07 Assessment/Plan VTE Prophylaxis VTE Prophylaxis Intervention: other Lines/Catheters Urinary Cath still in place: No Assessment/Plan Assessment/Plan 1. Guillain-[place] syndrome with quadriparesis, impaired mobility/gait/ADLs. Medical management per neurology, S/p IVIG. Continue PT/OT. CGA for grooming. Max assistance for lower and upper body dressing. 2. Cervical degenerative disc disease/spinal canal stenosis. Continue pain control as needed. 3. Right calf pain. RLE Venous doppler did not show evidence of DVT. Possible overuse injury. Pain improving with conservative treatment, continue to monitor. If not continuing to improve or pain worsening, consider further work up including CT RLE. Subjective 24 Hr Interval Summary Free Text/Dictation Rehab progress note Subjective: Reports right calf pain better today. ROS: Denies chest pain, no shortness of breath, no abdominal pain, no nausea, no vomiting, no chills. Reports moving bowels. Exam/Review of Systems Vital Signs Vitals Vital Signs Date Time Temp Pulse Resp B/P Pulse Ox O2 Delivery O2 Flow Rate FiO2 09/14/16 20:00 98.5 93 18 128/89 95 Intake and Output 09/14/16 09/14/16 09/15/16 15:00 23:00 07:00 Intake Total 1200 ml 1080 ml Balance 1200 ml 1080 ml Exam General: Awake, alert, no acute distress CV: Regular rate, s1s2 audible Lungs: Clear to auscultation, no wheezing or crackles Abdomen soft, nontender, +bowel sounds Extremities: No new swelling, no cyanosis. Neuro: No new focal weakness. No new sensory changes. Results Result Diagram: 09/14/1661909/14/16619 Medications Medications Current Medications Docusate Sodium (Colace) 100 mg Q12H PRN PO CONSTIPATION; Start 09/06/16 at 22: 30 Acetaminophen/ Hydrocodone Bitart ([place] (5/325)) 1 tab Q6H PRN PO PAIN Last administered on 09/14/16t 23:10; Admin Dose 1 TAB; Start 09/06/16 at 22:30 Ondansetron HCl (Zofran Inj) 4 mg Q6H PRN IV NAUSEA AND/OR VOMITING; Start 3/ 30/17 at 22:30 Pantoprazole (Protonix Tab) 40 mg DAILY@06 PO Last administered on 09/15/16 06: 11; Admin Dose 40 MG; Start 09/07/16 at 06:00 Acetaminophen (Tylenol Tab) 650 mg Q6H PRN PO PAIN AND OR ELEVATED TEMP Last administered on 09/11/16 12:19; Admin Dose 650 MG; Start 09/06/16 at 22:30 QUINCY FERRIS Sep 15, 2016 10:09
[2016-09-15 20:00] VITALS: BP 120/85; PULSE 98; RESP 17
--- NOTE | 2016-09-15 21:46 | CONS ---
Date/Time of Note Date/Time of Note DATE: 09/15/16 TIME: 21:45 Assessment/Plan Assessment/Plan Chief Complaint/Hosp Course 1. 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 Quadriparesis, better 3 s/p ivig plan pt ot us neg legs Problems: Consultation Date/Type/Reason Admit Date/Time Sep 06, 2016 at 20:13 Type of Consultation: renal 24 HR Interval Summary Constitutional: no complaints Exam/Review of Systems Vital Signs Vitals Vital Signs Date Time Temp Pulse Resp B/P Pulse Ox O2 Delivery O2 Flow Rate FiO2 09/15/16 20:00 98.7 98 17 120/85 97 Intake and Output 09/14/16 09/14/16 09/15/16 15:00 23:00 07:00 Intake Total 1200 ml 1080 ml Balance 1200 ml 1080 ml Exam Neck: supple Respiratory: clear to auscultation Cardiovascular: regular rate and rhythm Gastrointestinal: soft Musculoskeletal: muscle weakness Results Result Diagram: 09/14/16 0620 09/14/16 0620 Medications Medications Current Medications Docusate Sodium (Colace) 100 mg Q12H PRN PO CONSTIPATION; Start 09/06/16 at 22: 30 Acetaminophen/ Hydrocodone Bitart ([place] (5/325)) 1 tab Q6H PRN PO PAIN Last administered on 09/14/16 23:10; Admin Dose 1 TAB; Start 09/06/16 at 22:30 Ondansetron HCl (Zofran Inj) 4 mg Q6H PRN IV NAUSEA AND/OR VOMITING; Start at 22:30 Pantoprazole (Protonix Tab) 40 mg DAILY@06 PO Last administered on 09/15/16 06: 11; Admin Dose 40 MG; Start 09/07/16 at 06:00 Acetaminophen (Tylenol Tab) 650 mg Q6H PRN PO PAIN AND OR ELEVATED TEMP Last administered on 09/11/16 12:19; Admin Dose 650 MG; Start 09/06/16 at 22:30 FRANCISCO GILMORE MD Sep 15, 2016 21:46
[2016-09-16] MEDS: PANTOPRAZOLE (EC) 40 MG TAB PO SCH (07:00)
[2016-09-16 07:30] VITALS: BP 125/84; RESP 18
[2016-09-16 20:22] VITALS: BP 124/87; RESP 16
--- NOTE | 2016-09-16 22:17 | CONS ---
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, better still weak 3 s/p ivig plan pt ot us neg legs Problems: Consultation Date/Type/Reason Admit Date/Time Sep 06, 2016 at 20:13 Type of Consultation: renal 24 HR Interval Summary Constitutional: improved Exam/Review of Systems Vital Signs Vitals Vital Signs Date Time Temp Pulse Resp B/P Pulse Ox O2 Delivery O2 Flow Rate FiO2 09/16/16 20:22 99.3 100 16 124/87 99 Exam Cardiovascular: regular rate and rhythm Gastrointestinal: soft Musculoskeletal: nl extremities to inspection Extremities: normal pulses Results Result Diagram: 09/14/1661909/14/16619 Medications Medications Current Medications Docusate Sodium (Colace) 100 mg Q12H PRN PO CONSTIPATION; Start 09/06/16 at 22: 30 Acetaminophen/ Hydrocodone Bitart ([place] (5/325)) 1 tab Q6H PRN PO PAIN Last administered on 09/14/16 23:10; Admin Dose 1 TAB; Start 09/06/16 at 22:30 Ondansetron HCl (Zofran Inj) 4 mg Q6H PRN IV NAUSEA AND/OR VOMITING; Start at 22:30 Pantoprazole (Protonix Tab) 40 mg DAILY@06 PO Last administered on 09/16/16 07: 00; Admin Dose 40 MG; Start 09/07/16 at 06:00 Acetaminophen (Tylenol Tab) 650 mg Q6H PRN PO PAIN AND OR ELEVATED TEMP Last administered on 09/11/16 12:19; Admin Dose 650 MG; Start 09/06/16 at 22:30 FRANCISCO GILMORE MD Sep 16, 2016 22:17
[2016-09-17] MEDS: PANTOPRAZOLE (EC) 40 MG TAB PO SCH (06:51)
[2016-09-17 07:30] VITALS: BP 120/85; RESP 18
--- NOTE | 2016-09-17 11:53 | CONS ---
Date/Time of Note Date/Time of Note DATE: 09/17/16 TIME: 11:50 Consult Date/Type/Reason Admit Date/Time Sep 06, 2016 at 20:13 Type of Consultation: renal Subjective Reports feeling much better, and less LE discomfort Objective Vital Signs Date Time Temp Pulse Resp B/P Pulse Ox O2 Delivery O2 Flow Rate FiO2 09/17/16 07:30 97.9 114 18 120/85 96 Intake and Output 09/16/16 09/16/16 09/17/16 15:00 23:00 07:00 Intake Total 500 ml 820 ml 200 ml Balance 500 ml 820 ml 200 ml INTERDISCIPLINARY TEAM CONFERENCE BOWEL- Cont BLADDER-Cont SKIN- intact OT- DRESSING-mod BATHING-mod TOILETING-mod PT- BED MOBILITY-min TRANSFERS-min/mod AMBULATION-min 60 feet W.C. MOBILITY-mod A/P- Interdisciplinary team conference held today. Please see interdisciplinary sheet. Working toward d.c. on 09/26 with post discharge follow up of physical therapy, occupational therapy. Results/Medications Result Diagram: 09/14/16 0620 09/14/16 0620 Medications Current Medications Docusate Sodium (Colace) 100 mg Q12H PRN PO CONSTIPATION; Start 09/06/16 at 22: 30 Acetaminophen/ Hydrocodone Bitart ([place] (5/325)) 1 tab Q6H PRN PO PAIN Last administered on 09/14/16 23:10; Admin Dose 1 TAB; Start 09/06/16 at 22:30 Ondansetron HCl (Zofran Inj) 4 mg Q6H PRN IV NAUSEA AND/OR VOMITING; Start at 22:30 Pantoprazole (Protonix Tab) 40 mg DAILY@06 PO Last administered on 09/17/16 06 :51; Admin Dose 40 MG; Start 09/07/16 at 06:00 Acetaminophen (Tylenol Tab) 650 mg Q6H PRN PO PAIN AND OR ELEVATED TEMP Last administered on 09/11/16 12:19; Admin Dose 650 MG; Start 09/06/16 at 22:30 JERAD PERKINS MD Sep 17, 2016 11:53
[2016-09-17 20:05] VITALS: BP 113/78; RESP 18
--- NOTE | 2016-09-17 22:58 | PN ---
Date/Time of Note Date/Time of Note DATE: 09/17/16 TIME: 22:57 Assessment/Plan VTE Prophylaxis VTE Prophylaxis Intervention: other Lines/Catheters Urinary Cath still in place: No Assessment/Plan Chief Complaint/Hosp Course 1. 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 Quadriparesis, better still weak 3 s/p ivig plan pt ot Problems: Subjective 24 Hr Interval Summary Respiratory: no complaints Cardiovascular: no complaints Gastrointestinal: no complaints Musculoskeletal: other (weakness) Exam/Review of Systems Vital Signs Vitals Vital Signs Date Time Temp Pulse Resp B/P Pulse Ox O2 Delivery O2 Flow Rate FiO2 09/17/16 20:05 98.3 95 18 113/78 98 Intake and Output 09/16/16 09/16/16 09/17/16 15:00 23:00 07:00 Intake Total 500 ml 820 ml 200 ml Balance 500 ml 820 ml 200 ml Exam Respiratory: clear to auscultation Cardiovascular: regular rate and rhythm Gastrointestinal: soft Musculoskeletal: nl extremities to inspection Extremities: normal pulses Results Result Diagram: 09/14/1661909/14/16 0620 Medications Medications Current Medications Docusate Sodium (Colace) 100 mg Q12H PRN PO CONSTIPATION; Start 09/06/16 at 22: 30 Acetaminophen/ Hydrocodone Bitart ([place] (5/325)) 1 tab Q6H PRN PO PAIN Last administered on 09/14/16 23:10; Admin Dose 1 TAB; Start 09/06/16 at 22:30 Ondansetron HCl (Zofran Inj) 4 mg Q6H PRN IV NAUSEA AND/OR VOMITING; Start at 22:30 Pantoprazole (Protonix Tab) 40 mg DAILY@06 PO Last administered on 09/17/16 06 :51; Admin Dose 40 MG; Start 09/07/16 at 06:00 Acetaminophen (Tylenol Tab) 650 mg Q6H PRN PO PAIN AND OR ELEVATED TEMP Last administered on 09/11/16 12:19; Admin Dose 650 MG; Start 09/06/16 at 22:30 FRANCISCO GILMORE MD Sep 17, 2016 22:58
[2016-09-18] MEDS: PANTOPRAZOLE (EC) 40 MG TAB PO SCH (06:00)
[2016-09-18 07:31] VITALS: BP 127/84; RESP 18
--- NOTE | 2016-09-18 12:45 | CONS ---
Date/Time of Note Date/Time of Note DATE: 09/18/16 TIME: 12:45 Consult Date/Type/Reason Admit Date/Time Sep 06, 2016 at 20:13 Type of Consultation: renal Subjective Motivated for activities Objective pulm-cta abd-soft improving motor strength Vital Signs Date Time Temp Pulse Resp B/P Pulse Ox O2 Delivery O2 Flow Rate FiO2 09/18/16 07:31 97.9 82 18 127/84 96 Intake and Output 09/17/16 09/17/16 09/18/16 14:59 22:59 06:59 Intake Total 620 ml 850 ml Balance 620 ml 850 ml Results/Medications Result Diagram: 09/14/1661909/14/16 0620 Medications Current Medications Docusate Sodium (Colace) 100 mg Q12H PRN PO CONSTIPATION; Start 09/06/16 at 22: 30 Acetaminophen/ Hydrocodone Bitart ([place] (5/325)) 1 tab Q6H PRN PO PAIN Last administered on 09/14/16 23:10; Admin Dose 1 TAB; Start 09/06/16 at 22:30 Ondansetron HCl (Zofran Inj) 4 mg Q6H PRN IV NAUSEA AND/OR VOMITING; Start at 22:30 Pantoprazole (Protonix Tab) 40 mg DAILY@06 PO Last administered on 09/17/16 06 :51; Admin Dose 40 MG; Start 09/07/16 at 06:00 Acetaminophen (Tylenol Tab) 650 mg Q6H PRN PO PAIN AND OR ELEVATED TEMP Last administered on 09/11/16 12:19; Admin Dose 650 MG; Start 09/06/16 at 22:30 Assessment/Plan Additional Assessment/Plan Rehab- Guillain-[place] syndrome. Continue rehab program, while avoiding over exertion Moderate cervical degenerative disk disease-stable JERAD PERKINS MD Sep 18, 2016 12:45
--- NOTE | 2016-09-18 18:00 | PN ---
Date/Time of Note Date/Time of Note DATE: 09/18/16 TIME: 18:00 Assessment/Plan VTE Prophylaxis VTE Prophylaxis Intervention: other Lines/Catheters Urinary Cath still in place: No Assessment/Plan Chief Complaint/Hosp Course 1. 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 Quadriparesis, better still weak 3 s/p ivig plan pt ot Problems: Subjective 24 Hr Interval Summary Gastrointestinal: no complaints Genitourinary: no complaints Exam/Review of Systems Vital Signs Vitals Vital Signs Date Time Temp Pulse Resp B/P Pulse Ox O2 Delivery O2 Flow Rate FiO2 09/18/16 07:31 97.9 82 18 127/84 96 Intake and Output 09/17/16 09/17/16 09/18/16 15:00 23:00 07:00 Intake Total 620 ml 850 ml Balance 620 ml 850 ml Exam Respiratory: clear to auscultation Cardiovascular: regular rate and rhythm Results Result Diagram: 09/14/16 0620 09/14/16 0620 Medications Medications Current Medications Docusate Sodium (Colace) 100 mg Q12H PRN PO CONSTIPATION; Start 09/06/16 at 22: 30 Acetaminophen/ Hydrocodone Bitart ([place] (5/325)) 1 tab Q6H PRN PO PAIN Last administered on 09/14/16 23:10; Admin Dose 1 TAB; Start 09/06/16 at 22:30 Ondansetron HCl (Zofran Inj) 4 mg Q6H PRN IV NAUSEA AND/OR VOMITING; Start at 22:30 Pantoprazole (Protonix Tab) 40 mg DAILY@06 PO Last administered on 09/17/16 06 :51; Admin Dose 40 MG; Start 09/07/16 at 06:00 Acetaminophen (Tylenol Tab) 650 mg Q6H PRN PO PAIN AND OR ELEVATED TEMP Last administered on 09/11/16 12:19; Admin Dose 650 MG; Start 09/06/16 at 22:30 FRANCISCO GILMORE MD Sep 18, 2016 18:00
[2016-09-18 20:00] VITALS: BP 126/85; RESP 18
[2016-09-18] MEDS: ACETAMINOPHEN 325 MG TAB PO PRN (21:36)
--- NOTE | 2016-09-19 01:16 | PN ---
DATE: REFERRING PHYSICIAN: Dr. Gilmore HISTORY OF PRESENT ILLNESS: The patient is a 55-year-old male with a past medical history of Guilla n-Lindsey syndrome, status post IVIG. The patient on acute rehabilitation with improvement; however, the patient still has weakness bilateral lower extremities, scored 4/5 in which the patient has diff iculty to stand up by himself. CURRENT MEDICATIONS: Which include: 1. Protonix 40 mg once a day. 2. Colace 100 mg twice a day. 3. [place] 5/325 mg every 6 hours as needed. 4. Zofran 4 mg every 6 hours. 5. Tylenol 650 mg. PHYSICAL EXAMINATION: Today, the patient is alert, awake, oriented for time, place, and person. No rmal speech and normal language. CRANIAL NERVES: Cranial nerve II: Pupils equal on both sides, reactive to light. Cranial nerves I II, IV, and : Extraocular muscles intact. No nystagmus. Cranial nerve V: Equal sensation to fa ce. Cranial nerve VII: Symmetrical face. Cranial nerve VIII: Equal hearing bilaterally. Cranial nerve IX, X: Elevates palate. Cranial nerve XI: Elevates shoulder 5/5. Cranial nerve XII: With straight tongue. MOTOR: Decreased bilateral upper and lower extremity. Deep tendon reflexes diminished bilaterally with toes going down. HEART: Regular rate and rhythm. LUNGS: Equal breath sounds. ABDOMEN: Soft, relaxed, nondistended. No tenderness. ASSESSMENT AND PLAN: The patient is a 55-year-old male status post Guillan-Lindsey syndrome. We are going to start the patient on plasmapheresis. See how the patient responds for that. We can do it 3 treatments, every other day. The patient and his family were counseled. Will discuss with Dr. Philip allen about the treatment. Again, thank you for asking me to see the patient with you. Dictated By: CANDICE VELA MD NA/NTS Conf#: [id number] DID#: [id number] CC: JERAD PERKINS MD; FRANCISCO GILMORE MD;*EndCC*
[2016-09-19] MEDS: PANTOPRAZOLE (EC) 40 MG TAB PO SCH (06:00)
[2016-09-19 08:50] VITALS: BP 123/84; RESP 18
--- NOTE | 2016-09-19 11:54 | CONS ---
Date/Time of Note Date/Time of Note DATE: 09/19/16 TIME: 11:54 Consult Date/Type/Reason Admit Date/Time Sep 06, 2016 at 20:13 Type of Consultation: renal Subjective No new complaints, feels better today Objective pulm-cta abd-soft Vital Signs Date Time Temp Pulse Resp B/P Pulse Ox O2 Delivery O2 Flow Rate FiO2 09/19/16 08:50 98.5 80 18 123/84 95 Intake and Output 09/18/16 09/18/16 09/19/16 14:59 22:59 06:59 Intake Total 1400 ml 600 ml 700 ml Balance 1400 ml 600 ml 700 ml Results/Medications Medications Current Medications Docusate Sodium (Colace) 100 mg Q12H PRN PO CONSTIPATION; Start 09/06/16 at 22: 30 Acetaminophen/ Hydrocodone Bitart ([place] (5/325)) 1 tab Q6H PRN PO PAIN Last administered on 09/14/16 23:10; Admin Dose 1 TAB; Start 09/06/16 at 22:30 Ondansetron HCl (Zofran Inj) 4 mg Q6H PRN IV NAUSEA AND/OR VOMITING; Start at 22:30 Pantoprazole (Protonix Tab) 40 mg DAILY@06 PO Last administered on 09/17/16 06 :51; Admin Dose 40 MG; Start 09/07/16 at 06:00 Acetaminophen (Tylenol Tab) 650 mg Q6H PRN PO PAIN AND OR ELEVATED TEMP Last administered on 09/18/16 21:36; Admin Dose 650 MG; Start 09/06/16 at 22:30 Assessment/Plan Additional Assessment/Plan Rehab- Guillain-[place] syndrome. Resumed ambulation activites, and tolerated well. Avoid over exertion Moderate cervical degenerative disk disease-stable JERAD PERKINS MD Sep 19, 2016 11:54
[2016-09-19] MEDS: HYDROCODONE/APAP (5/325) TAB PO PRN (12:33)
--- NOTE | 2016-09-19 20:10 | PN ---
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, better still weak 3 s/p ivig plan pt ot pt and family thinking about plasmapheresis Problems: Subjective 24 Hr Interval Summary Constitutional: no complaints Respiratory: no complaints Cardiovascular: no complaints Gastrointestinal: no complaints Neurologic: other Exam/Review of Systems Vital Signs Vitals Vital Signs Date Time Temp Pulse Resp B/P Pulse Ox O2 Delivery O2 Flow Rate FiO2 09/19/16 08:50 98.5 80 18 123/84 95 Intake and Output 09/18/16 09/18/16 09/19/16 15:00 23:00 07:00 Intake Total 1400 ml 600 ml 700 ml Balance 1400 ml 600 ml 700 ml Exam Respiratory: clear to auscultation Cardiovascular: regular rate and rhythm Gastrointestinal: soft Musculoskeletal: nl extremities to inspection Extremities: normal pulses Medications Medications Current Medications Docusate Sodium (Colace) 100 mg Q12H PRN PO CONSTIPATION; Start 09/06/16 at 22: 30 Acetaminophen/ Hydrocodone Bitart ([place] (5/325)) 1 tab Q6H PRN PO PAIN Last administered on 09/19/16 12:33; Admin Dose 1 TAB; Start 09/06/16 at 22:30 Ondansetron HCl (Zofran Inj) 4 mg Q6H PRN IV NAUSEA AND/OR VOMITING; Start at 22:30 Pantoprazole (Protonix Tab) 40 mg DAILY@06 PO Last administered on 09/17/16 06 :51; Admin Dose 40 MG; Start 09/07/16 at 06:00 Acetaminophen (Tylenol Tab) 650 mg Q6H PRN PO PAIN AND OR ELEVATED TEMP Last administered on 09/18/16 21:36; Admin Dose 650 MG; Start 09/06/16 at 22:30 FRANCISCO GILMORE MD Sep 19, 2016 20:10
[2016-09-19] MEDS: ACETAMINOPHEN 325 MG TAB PO PRN (20:58)
--- NOTE | 2016-09-19 22:21 | PN ---
DATE: REFERRING PHYSICIAN: Dr. Gilmore HISTORY OF PRESENT ILLNESS: The patient is a 55-year-old male with a past medical history of Guilla n-[place] status post IVIG in which the patient had physical therapy and rehabilitation with some impr ovement. However, the patient is still weak. He cannot stand. 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 They recommend the pat ient to have a plasmapheresis. I explained the patient about the risks and benefits of that. We co unseled the plasmapheresis to evaluate the patient for that treatment. CURRENT MEDICATIONS: Include: 1. Protonix 40 mg once a day. 2. Colace 100 mg once a day. 3. [place] 5/325 mg every 4 hours as needed. 4. Zofran 4 mg every 6 hours as needed. 5. Tylenol 650 mg every 4 hours as needed. PHYSICAL EXAMINATION: GENERAL: Today, the patient is alert, awake, oriented for time, place, and person. Normal speech a nd normal language. CRANIAL NERVES: Cranial nerve II: Pupils equal on both sides, reactive to light. Cranial nerves I II, IV, and : Extraocular muscles intact without nystagmus. Cranial nerve V: Equal sensation to face. Cranial nerve VII: Symmetrical face. Cranial nerve VIII: Decreased hearing bilaterally. Cranial nerve IX, X: Elevates palate. Cranial nerve XI: Elevates shoulder 5/5. Cranial nerve XII : With straight tongue. 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 SENSATION: Decreased for glove and sock area for light touch and temperature. COORDINATION: Vjjjhh-jb-[id number] test intact. HEART: Regular rate and rhythm. LUNGS: Equal breath sounds. ABDOMEN: Soft, relaxed, nondistended. No tenderness. ASSESSMENT AND PLAN: The patient is a 55-year-old status post Guillan-[place] syndrome in which the p atient had a round of IVIG with some improvement. The patient also had physical therapy, acute reha bilitation and also had more improvement. However, the patient is still weak. We consider plasmaph eresis. We counseled the patient about the benefits, side effects. Will follow up the patient with Dr. Gilmore if the patient is reasonable for the treatment. Again, thank you for asking me to see the patient with you. Dictated By: CANDICE BATISTA/NTS Conf#: [id number] DID#: [id number] CC: JERAD PERKINS MD; FRANCISCO GILMORE MD;*[facility]*
[2016-09-20 07:30] VITALS: BP 135/86; RESP 18
[2016-09-20] MEDS: HYDROCODONE/APAP (5/325) TAB PO PRN ×3 (08:29→23:56)
--- NOTE | 2016-09-20 12:19 | CONS ---
Date/Time of Note Date/Time of Note DATE: 09/20/16 TIME: 12:18 Consult Date/Type/Reason Admit Date/Time Sep 06, 2016 at 20:13 Type of Consultation: renal Subjective Patient is considering plasmapharesis Objective pulm-cta abd-soft still with weakness, especially fine finger movements, however is improving Vital Signs Date Time Temp Pulse Resp B/P Pulse Ox O2 Delivery O2 Flow Rate FiO2 09/20/16 07:30 98.4 100 18 135/86 97 Intake and Output 09/19/16 09/19/16 09/20/16 15:00 23:00 07:00 Intake Total 1400 ml 600 ml Balance 1400 ml 600 ml Results/Medications Medications Current Medications Docusate Sodium (Colace) 100 mg Q12H PRN PO CONSTIPATION; Start 09/06/16 at 22: 30 Acetaminophen/ Hydrocodone Bitart ([place] (5/325)) 1 tab Q6H PRN PO PAIN Last administered on 09/20/16 08:29; Admin Dose 1 TAB; Start 09/06/16 at 22:30 Ondansetron HCl (Zofran Inj) 4 mg Q6H PRN IV NAUSEA AND/OR VOMITING; Start at 22:30 Pantoprazole (Protonix Tab) 40 mg DAILY@06 PO Last administered on 09/17/16 06 :51; Admin Dose 40 MG; Start 09/07/16 at 06:00 Acetaminophen (Tylenol Tab) 650 mg Q6H PRN PO PAIN AND OR ELEVATED TEMP Last administered on 09/19/16 20:58; Admin Dose 650 MG; Start 09/06/16 at 22:30 Assessment/Plan Additional Assessment/Plan Rehab- Guillain-[place] syndrome. Continue rehab, while avoiding over exertion. Await patients decision on plasmapharesis Moderate cervical degenerative disk disease-stable JERAD PERKINS MD Sep 20, 2016 12:19
--- NOTE | 2016-09-20 16:43 | PN ---
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, better still weak 3 s/p ivig plan pt ot pt and family thinking about plasmapheresis Problems: Subjective 24 Hr Interval Summary Subjective hx not possible: other (pt still deciding about plasmapheresis) Exam/Review of Systems Vital Signs Vitals Vital Signs Date Time Temp Pulse Resp B/P Pulse Ox O2 Delivery O2 Flow Rate FiO2 09/20/16 07:30 98.4 100 18 135/86 97 Intake and Output 09/19/16 09/19/16 09/20/16 15:00 23:00 07:00 Intake Total 1400 ml 600 ml Balance 1400 ml 600 ml Exam Neck: supple Respiratory: clear to auscultation Cardiovascular: regular rate and rhythm Gastrointestinal: soft Musculoskeletal: nl extremities to inspection 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, nl mental status, nl speech, other (weakness) Medications Medications Current Medications Docusate Sodium (Colace) 100 mg Q12H PRN PO CONSTIPATION; Start 09/06/16 at 22: 30 Acetaminophen/ Hydrocodone Bitart ([place] (5/325)) 1 tab Q6H PRN PO PAIN Last administered on 09/20/16 13:58; Admin Dose 1 TAB; Start 09/06/16 at 22:30 Ondansetron HCl (Zofran Inj) 4 mg Q6H PRN IV NAUSEA AND/OR VOMITING; Start at 22:30 Pantoprazole (Protonix Tab) 40 mg DAILY@06 PO Last administered on 09/17/16 06 :51; Admin Dose 40 MG; Start 09/07/16 at 06:00 Acetaminophen (Tylenol Tab) 650 mg Q6H PRN PO PAIN AND OR ELEVATED TEMP Last administered on 09/19/16 20:58; Admin Dose 650 MG; Start 09/06/16 at 22:30 FRANCISCO GILMORE MD Sep 20, 2016 16:43
[2016-09-20 19:32] VITALS: BP 130/86; RESP 18
--- NOTE | 2016-09-21 03:49 | PN ---
DATE: REFERRIG PHYSICIAN: Dr. Alvarez CONSULTING PHYSICIAN: Dr. Catherine HISTORY OF PRESENT ILLNESS: Thank you for asking me to see the patient. The patient is a 55-year-o ld who has a past medical history of Guillain-[place] Syndrome status post IVIG in which the patient h as had acute rehab with some improvement; however, the patient is still weak. CURRENT MEDICATIONS: 1. Protonix 40 mg once a day. 2. Colace 100 mg once a day. 3. [place] 5/325 mg every 4 hours as needed. 4. Zofran 4 mg every 6 hours. 5. Tylenol 650 every 4 hours. PHYSICAL EXAMINATION: GENERAL: Today, the patient is alert, awake, oriented for time, place, and person. Normal speech a nd normal language. CRANIAL NERVES: Cranial nerve II: Pupils equal on both sides, reactive to light. Cranial nerves I II, IV, and : Extraocular muscles intact. Cranial nerve V: Equal sensation to face. Cranial ne rve VII: Symmetrical face. Cranial nerve VIII: Equal hearing bilaterally. Cranial nerve IX and X : Elevates palate. Cranial nerve XI: Elevates shoulder 5/5. Cranial nerve XII: Straight tongue. 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 Decreased bilateral upper and lower extremity with quadrip aresis; however, he is improving from before. SENSATION: Decreased for glove and sock area for light touch and temperature. COORDINATION: Mjpfey-le-yhns test intact. HEART: Regular rate and rhythm. LUNGS: Equal breath sounds. ABDOMEN: Soft, relaxed, nondistended, no tenderness. ASSESSMENT AND PLAN: The patient is a 55-year-old with Guillain-[place] Syndrome status post IVIG and acute rehab, physical therapy, occupational therapy with improvement. We might follow up the patie nt with nerve conduction study and consider plasmapheresis and see how the patient responds to that. Again, thank you for asking me to see the patient with you. Dictated By: CANDICE BATISTA/SHOAIB Conf#: [id number] DID#: [id number]
[2016-09-21] MEDS: PANTOPRAZOLE (EC) 40 MG TAB PO SCH (06:00)
[2016-09-21 07:44] VITALS: BP 137/88; RESP 18
[2016-09-21] MEDS: HYDROCODONE/APAP (5/325) TAB PO PRN ×2 (08:52→21:24)
--- NOTE | 2016-09-21 11:38 | CONS ---
Date/Time of Note Date/Time of Note DATE: 09/21/16 TIME: 11:37 Consult Date/Type/Reason Admit Date/Time Sep 06, 2016 at 20:13 Type of Consultation: renal Subjective Patient c/o sharp R LE pain Objective pulm-cta abd- soft RLE-sl TTP Vital Signs Date Time Temp Pulse Resp B/P Pulse Ox O2 Delivery O2 Flow Rate FiO2 09/21/16 07:44 98.2 87 18 137/88 95 Intake and Output 09/20/16 09/20/16 09/21/16 15:00 23:00 07:00 Output Total 300 ml Balance -300 ml Results/Medications Medications Current Medications Docusate Sodium (Colace) 100 mg Q12H PRN PO CONSTIPATION; Start 09/06/16 at 22: 30 Acetaminophen/ Hydrocodone Bitart ([place] (5/325)) 1 tab Q6H PRN PO PAIN Last administered on 09/21/16 08:52; Admin Dose 1 TAB; Start 09/06/16 at 22:30 Ondansetron HCl (Zofran Inj) 4 mg Q6H PRN IV NAUSEA AND/OR VOMITING; Start at 22:30 Pantoprazole (Protonix Tab) 40 mg DAILY@06 PO Last administered on 09/17/16 06 :51; Admin Dose 40 MG; Start 09/07/16 at 06:00 Acetaminophen (Tylenol Tab) 650 mg Q6H PRN PO PAIN AND OR ELEVATED TEMP Last administered on 09/19/16 20:58; Admin Dose 650 MG; Start 09/06/16 at 22:30 Gabapentin (Neurontin) 100 mg BID PO ; Start 09/21/16 at 09:00 Assessment/Plan Additional Assessment/Plan Rehab- Guillain-[place] syndrome. Continue rehab, while avoiding over exertion. Patient agreeable to plasmapharesis RLE- repeat venous duplex Moderate cervical degenerative disk disease-stable JERAD PERKINS MD Sep 21, 2016 11:38
[2016-09-21] MEDS: GABAPENTIN 100 MG CAP PO SCH ×2 (13:33→21:24)
--- NOTE | 2016-09-21 14:41 | PN ---
Date/Time of Note Date/Time of Note DATE: 09/21/16 TIME: 14:39 Assessment/Plan VTE Prophylaxis VTE Prophylaxis Intervention: other Lines/Catheters Urinary Cath still in place: No Assessment/Plan Chief Complaint/Hosp Course 1. 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 Quadriparesis, better still weak 3 s/p ivig plan pt ot pt and family agreeing for plasmapheresis about plasmapheresis,hd cath Problems: Subjective 24 Hr Interval Summary Subjective hx not possible: other (d/w dr acuna will need plasmapheresisi) Exam/Review of Systems Vital Signs Vitals Vital Signs Date Time Temp Pulse Resp B/P Pulse Ox O2 Delivery O2 Flow Rate FiO2 09/21/16 07:44 98.2 87 18 137/88 95 Intake and Output 09/20/16 09/20/16 09/21/16 15:00 23:00 07:00 Output Total 300 ml Balance -300 ml Exam Respiratory: clear to auscultation Cardiovascular: regular rate and rhythm Gastrointestinal: soft Musculoskeletal: nl extremities to inspection Extremities: normal pulses Medications Medications Current Medications Docusate Sodium (Colace) 100 mg Q12H PRN PO CONSTIPATION; Start 09/06/16 at 22: 30 Acetaminophen/ Hydrocodone Bitart ([place] (5/325)) 1 tab Q6H PRN PO PAIN Last administered on 09/21/16 08:52; Admin Dose 1 TAB; Start 09/06/16 at 22:30 Ondansetron HCl (Zofran Inj) 4 mg Q6H PRN IV NAUSEA AND/OR VOMITING; Start at 22:30 Pantoprazole (Protonix Tab) 40 mg DAILY@06 PO Last administered on 09/17/16 06 :51; Admin Dose 40 MG; Start 09/07/16 at 06:00 Acetaminophen (Tylenol Tab) 650 mg Q6H PRN PO PAIN AND OR ELEVATED TEMP Last administered on 09/19/16 20:58; Admin Dose 650 MG; Start 09/06/16 at 22:30 Gabapentin (Neurontin) 100 mg BID PO Last administered on 09/21/16 13:33; Admin Dose 100 MG; Start 09/21/16 at 09:00 FRANCISCO GILMORE MD Sep 21, 2016 14:41
[2016-09-21] MEDS ORDERED: HEPARIN 1000 UNITS/ML 10 ML INJ CATHETER ONE (15:30)
--- NOTE | 2016-09-21 15:31 | RADRPT ---
PROCEDURE: US Lower extremity Venous. CLINICAL INDICATION: Right leg swelling TECHNIQUE: Multiple sonographic images of the right lower extremity deep venous system was obtaine d utilizing grayscale, color-flow, compressive sonography and doppler imaging with augmentation. Th e images were reviewed on a PACS workstation. COMPARISON: 09/12/2016 FINDINGS: There is no compressibility or flow within the right common femoral, femoral peroneal and popliteal veins. RPTAT: AA IMPRESSION: Extensive right leg DVT. A call report was made and the findings discussed with nurse Jonathan at 09/21/2016 3:00:16 PM. .Yogesh Campo MD, MD Date Time Electronically viewed and signed by .Yogesh Campo MD, on 09/21/2016 15:31 .S/
--- NOTE | 2016-09-21 17:19 | RADRPT ---
PROCEDURE: Ultrasound guidance for placement of needle in right internal jugular vein. CLINICAL INDICATION: Venous access. TECHNIQUE: Prior to the procedure, informed consent was obtained. Risks including bleeding, infection, and pneu mothorax were explained to the patient. The patient understood and was willing to proceed. A procedu ral pause was performed. The patient's name, date of , and procedure to be performed were verif ied. The central line was inserted with all elements of maximal sterile barrier technique. All of th e following were used: head covering, facial mask, sterile gown, sterile gloves, a large sterile she et, hand hygiene, and 2% chlorhexidine for cutaneous antisepsis. The right neck and anterior/super ior chest wall was prepped and draped in usual sterile fashion. Limited sonography of the right neck was then performed. Noted is a patent right internal jugular ve in. Ultrasound images were recorded and stored in the patient's medical record. Following the local injection of Xylocaine, the right internal jugular vein was punctured under sono graphic guidance with a 20-gauge needle through which a 0.018 inch floppy tip guidewire was advanced into the superior vena cava. The patient tolerated the procedure well. The remainder of the proce dure was performed and dictated under separate cover. COMPARISON: None. FINDINGS: The ultrasound images demonstrate a patent right internal jugular vein. The subsequent images demon strate the needle entering the right internal jugular vein. IMPRESSION: 1. Ultrasound guidance for a needle placement in right internal jugular vein. RPTAT: QQ .Cedric Kwon MD, Date Time Electronically viewed and signed by .Cedric Kwon MD, on 09/21/2016 17:18 .R/
--- NOTE | 2016-09-21 17:27 | RADRPT ---
PROCEDURE: PLACEMENT OF RIGHT INTERNAL JUGULAR VENOUS TEMPORARY DIALYSIS CATHETER . 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 Access for plasmapheresis. TECHNIQUE: Informed consent was obtained. The risks including bleeding and infection were explained to the pat jamalnt. The patient understood and was willing to proceed. A procedural pause was performed. The catrachita dooley's name, date of , and procedure to be performed were verified. Limited sonography of the right neck was performed. Noted is a patent right internal jugular vein. The central line was inse rted with all elements of maximal sterile barrier technique. All of the following were used: head co vering, facial mask, sterile gown, sterile gloves, a large sterile sheet, hand hygiene, and 2% chlo rhexidine for cutaneous antisepsis. The right neck and anterior superior chest wall was prepped and draped in the usual sterile fashion. Using local anesthesia, sterile technique, and ultrasound guidance, a 20-gauge needle was advanced i nto the right internal jugular vein in the supraclavicular region. The 0.018 inch floppy tip guidew bebeto was advanced through the needle into the superior vena cava with fluoroscopic guidance. A 5-Charles nch sheath was advanced over the guidewire. The guidewire was removed and a 0.035 inch Amplatz wire was advanced into the superior vena cava, then the right atrium. Serial dilatation was performed t o 12 [place]. The temporary dialysis catheter was then advanced over the guidewire such that the tip was placed in the right atrium. A 16 cm long, 11.5 [place] Mahurkar temporary dialysis catheter was used. Tip position was confirmed in the right atrium with fluoroscopy. The two ports were each fl ushed with 1.5 ml of 1:1000 heparin. The catheter was secured to the skin with 2-0 monofilament. The site was dressed. The patient tolerated the procedure well. COMPARISON: None. FINDINGS: Ultrasound images were recorded and stored in the patient's medical record. Final radiographic images demonstrate the tip of the catheter in the upper right atrium. A total of 0.1 minutes of fluoroscopy time was used. The ultrasound images demonstrate the needle entering th e internal jugular vein. IMPRESSION: 1. Satisfactory insertion of right internal jugular vein temporary dialysis catheter with ultrasoun d and fluoroscopic guidance. RPTAT: QQ .Cedric Kwon MD, MD Date Time Electronically viewed and signed by .Cedric Kwon MD, MD on 09/21/2016 17:26 .R/
[2016-09-21 18:26] LABS: INR 0.93; PROTIME 12.5 Sec (12.2-14.2)
[2016-09-21 18:28] LABS: PARTIAL THROMBOPLASTIN TIME 30.8 Sec (25.0-35.0)
[2016-09-21 18:29] LABS: ALBUMIN 3.3 g/dl (3.3-4.9); POTASSIUM 3.9 mmol/L (3.5-5.1)
[2016-09-21 18:31] LABS: BILIRUBIN,INDIRECT 0.5 mg/dl (0-1.1); BILIRUBIN,TOTAL 0.5 mg/dl (0.2-1.3); CREATININE 0.81 mg/dl (0.61-1.24)
[2016-09-21 18:32] LABS: ALBUMIN/GLOBULIN RATIO 0.82; CALCIUM 8.8 mg/dl (8.4-10.2); MAGNESIUM 1.8 mg/dl (1.7-2.5); PHOSPHORUS 4.3 mg/dl (2.5-4.9); TOTAL PROTEIN 7.3 g/dl (6.1-8.1)
[2016-09-21 19:58] VITALS: BP 143/89; RESP 18
[2016-09-21] MEDS: ENOXAPARIN 100 MG/ML SYG SC SCH (21:31)
[2016-09-22] MEDS: PANTOPRAZOLE (EC) 40 MG TAB PO SCH (06:00)
[2016-09-22 07:18] LABS: ADD SCAN DIFF NO
[2016-09-22 07:28] LABS: BASOPHILS % 0.4 % (0.0-2.0); EOSINOPHILS # 0.1 10^3/ul (0.0-0.5); HEMATOCRIT 43.2 % (42.0-52.0); HEMOGLOBIN 14.4 g/dl (14.0-18.0); LYMPHOCYTES # 1.7 10^3/ul (0.8-2.9); MEAN CORPUSCULAR HEMOGLOBIN 31.2 pg (29.0-33.0); MEAN CORPUSCULAR HGB CONC 33.3 g/dl (32.0-37.0); MEAN CORPUSCULAR VOLUME 93.7 fl (82.0-101.0); MEAN PLATELET VOLUME 8.8 fl (7.4-10.4); MONOCYTE # 0.5 10^3/ul (0.3-0.9); MONOCYTES % 7.4 % (0.0-11.0); NEUTROPHIL # 4.6 10^3/ul (1.6-7.5); NEUTROPHILS % 65.8 % (39.0-77.0); PLATELET COUNT 233 10^3/UL (140-415); RED BLOOD COUNT 4.61 10^6/ul (4.70-6.10); WHITE BLOOD COUNT 6.9 10^3/ul (4.8-10.8)
--- NOTE | 2016-09-22 07:41 | CONS ---
Date/Time of Note Date/Time of Note DATE: 09/22/16 TIME: 07:40 Consult Date/Type/Reason Admit Date/Time Sep 06, 2016 at 20:13 Type of Consultation: renal Subjective Right LE pain Objective pulm-cta Vital Signs Date Time Temp Pulse Resp B/P Pulse Ox O2 Delivery O2 Flow Rate FiO2 09/21/16 19:58 98.5 95 18 143/89 96 Intake and Output 09/21/16 09/21/16 09/22/16 15:00 23:00 07:00 Intake Total 1200 ml 600 ml 200 ml Balance 1200 ml 600 ml 200 ml Results/Medications Result Diagram: 09/22/16 0649 09/21/16 1755 Results 24 hrs Laboratory Tests Test 09/21/16 17:55 09/22/16 06:49 Prothrombin Time 12.5 Prothrombin Time Ratio 1.0 INR International Normalized Ratio 0.93 Activated Partial Thromboplast Time 30.8 Sodium Level 137 Potassium Level 3.9 Chloride Level 98 Carbon Dioxide Level 29 Anion Gap 14 Blood Urea Nitrogen 16 Creatinine 0.81 Glucose Level 129 Calcium Level 8.8 Phosphorus Level 4.3 Magnesium Level 1.8 Total Bilirubin 0.5 Direct Bilirubin 0.00 Indirect Bilirubin 0.5 Aspartate Amino Transf (AST/SGOT) 31 Alanine Aminotransferase (ALT/SGPT) 47 Alkaline Phosphatase 100 Total Protein 7.3 Albumin 3.3 Globulin 4.00 H Albumin/Globulin Ratio 0.82 White Blood Count 6.9 Red Blood Count 4.61 L Hemoglobin 14.4 Hematocrit 43.2 Mean Corpuscular Volume 93.7 Mean Corpuscular Hemoglobin 31.2 Mean Corpuscular Hemoglobin Concent 33.3 Red Cell Distribution Width 13.0 Platelet Count 233 # Mean Platelet Volume 8.8 Neutrophils % 65.8 Lymphocytes % 24.0 Monocytes % 7.4 Eosinophils % 2.0 Basophils % 0.4 Nucleated Red Blood Cells % 0.0 Neutrophils # 4.6 Lymphocytes # 1.7 Monocytes # 0.5 Eosinophils # 0.1 Basophils # 0.0 Nucleated Red Blood Cells # 0.0 Medications Current Medications Docusate Sodium (Colace) 100 mg Q12H PRN PO CONSTIPATION; Start 09/06/16 at 22: 30 Acetaminophen/ Hydrocodone Bitart ([place] (5/325)) 1 tab Q6H PRN PO PAIN Last administered on 09/21/16t 21:24; Admin Dose 1 TAB; Start 09/06/16 at 22:30 Ondansetron HCl (Zofran Inj) 4 mg Q6H PRN IV NAUSEA AND/OR VOMITING; Start at 22:30 Pantoprazole (Protonix Tab) 40 mg DAILY@06 PO Last administered on 09/17/16 06 :51; Admin Dose 40 MG; Start 09/07/16 at 06:00 Acetaminophen (Tylenol Tab) 650 mg Q6H PRN PO PAIN AND OR ELEVATED TEMP Last administered on 09/19/16 20:58; Admin Dose 650 MG; Start 09/06/16 at 22:30 Gabapentin (Neurontin) 100 mg BID PO Last administered on 09/21/16 21:24; Admin Dose 100 MG; Start 09/21/16 at 09:00 Enoxaparin Sodium (Lovenox) 80 mg Q12 SC Last administered on 09/21/16 21:31; Admin Dose 80 MG; Start 09/21/16 at 21:00 Assessment/Plan Additional Assessment/Plan Rehab- Guillain-[place] syndrome. Continue rehab, while avoiding over exertion. plasmapharesis on hold RLE- repeat venous duplex positive, patient started on anticoag Moderate cervical degenerative disk disease-stable JERAD PERKINS MD Sep 22, 2016 07:41
[2016-09-22] MEDS: GABAPENTIN 100 MG CAP PO SCH ×2 (08:07→20:23)
[2016-09-22] MEDS: ENOXAPARIN 100 MG/ML SYG SC SCH ×2 (08:07→20:26)
[2016-09-22 08:26] VITALS: BP 126/92; RESP 20
--- NOTE | 2016-09-22 09:07 | SP ---
DATE OF PROCEDURE: REFERRING PHYSICIAN: Dr. 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 The patient is under acute rehabilitation with limited improvement; however, is . I recommended for him to have a nerve conduction study as well and has as consideration. PAST MEDICATIONS: Include: 1. Protonix 40 mg once a day. 2. mg once a day. 3. [place] 5/325 mg every 4 hours as needed. 4. Zofran 4 mg every 6 hours. 5. 50 mg every 4 hours. PHYSICAL EXAMINATION: GENERAL: On exam today the patient is alert, awake, oriented to time, place, and person. Normal speech and normal language. CRANIAL NERVES EXAM: Cranial nerve II: Pupils are equal on both sides, reactive. III, IV and : Extraocular muscles intact. Cranial nerve V: Equal sensation to face. Cranial nerve VII: Symmetrical face. Cranial nerve VIII: Decreased hearing bilaterally. Cranial nerve X: Elevates palate. Cranial nerve XI: Elevates shoulder 5/5. Cranial nerve XII: With straight tongue. MOTOR EXAM: Decreased bilateral hand permanent waver, decreased both upper and lower extremities; however, improving from before, scored 4/5. COORDINATION: Ihjbsv-us-srkq test intact. GAIT: Could not assess. HEART: Regular rate and rhythm. LUNGS: Equal breath sounds. ABDOMEN: Soft, relaxed, nondistended, nontender. ASSESSMENT AND PLAN 1. The patient is a 55-year-old with underlying Guillain-[place] Syndrome. Follow up the patient with a nerve conduction study and EMG and a possibility will order for him plasmapheresis. 2. Will keep the patient in physical therapy and acute rehabilitation. Again, thank you for asking me to see the patient with you. Dictated By: CANDICE ABTISTA/SHOAIB Conf#: [id number] DID#: [id number] MTDD
[2016-09-22] MEDS: HYDROCODONE/APAP (5/325) TAB PO PRN (11:23)
--- NOTE | 2016-09-22 16:54 | PN ---
Date/Time of Note Date/Time of Note DATE: 09/22/16 TIME: 16:53 Assessment/Plan VTE Prophylaxis VTE Prophylaxis Intervention: other Lines/Catheters Urinary Cath still in place: No Assessment/Plan Chief Complaint/Hosp Course 1. 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 Quadriparesis, better still weak 3 s/p ivig dvt leg plan pt and family agreeing for plasmapheresis about plasmapheresis, on lovenox for dvt Problems: Subjective 24 Hr Interval Summary Subjective hx not possible: other (d/w pt and family for plasmapheresis family agrees d/w about all complication and risk) Exam/Review of Systems Vital Signs Vitals Vital Signs Date Time Temp Pulse Resp B/P Pulse Ox O2 Delivery O2 Flow Rate FiO2 09/22/16 08:26 98.5 92 20 126/92 93 Intake and Output 09/21/16 09/21/16 09/22/16 15:00 23:00 07:00 Intake Total 1200 ml 600 ml 200 ml Balance 1200 ml 600 ml 200 ml Exam Respiratory: clear to auscultation Cardiovascular: regular rate and rhythm Gastrointestinal: soft Musculoskeletal: nl extremities to inspection, No joint tenderness Extremities: normal pulses Results Result Diagram: 09/22/16 0649 09/21/16 1755 Results 24 hrs Laboratory Tests Test 09/21/16 17:55 09/22/16 06:49 Prothrombin Time 12.5 Prothrombin Time Ratio 1.0 INR International Normalized Ratio 0.93 Activated Partial Thromboplast Time 30.8 Sodium Level 137 Potassium Level 3.9 Chloride Level 98 Carbon Dioxide Level 29 Anion Gap 14 Blood Urea Nitrogen 16 Creatinine 0.81 Glucose Level 129 Calcium Level 8.8 Phosphorus Level 4.3 Magnesium Level 1.8 Total Bilirubin 0.5 Direct Bilirubin 0.00 Indirect Bilirubin 0.5 Aspartate Amino Transf (AST/SGOT) 31 Alanine Aminotransferase (ALT/SGPT) 47 Alkaline Phosphatase 100 Total Protein 7.3 Albumin 3.3 Globulin 4.00 H Albumin/Globulin Ratio 0.82 White Blood Count 6.9 Red Blood Count 4.61 L Hemoglobin 14.4 Hematocrit 43.2 Mean Corpuscular Volume 93.7 Mean Corpuscular Hemoglobin 31.2 Mean Corpuscular Hemoglobin Concent 33.3 Red Cell Distribution Width 13.0 Platelet Count 233 # Mean Platelet Volume 8.8 Neutrophils % 65.8 Lymphocytes % 24.0 Monocytes % 7.4 Eosinophils % 2.0 Basophils % 0.4 Nucleated Red Blood Cells % 0.0 Neutrophils # 4.6 Lymphocytes # 1.7 Monocytes # 0.5 Eosinophils # 0.1 Basophils # 0.0 Nucleated Red Blood Cells # 0.0 Medications Medications Current Medications Docusate Sodium (Colace) 100 mg Q12H PRN PO CONSTIPATION; Start 09/06/16 at 22: 30 Acetaminophen/ Hydrocodone Bitart ([place] (5/325)) 1 tab Q6H PRN PO PAIN Last administered on 09/22/16 11:23; Admin Dose 1 TAB; Start 09/06/16 at 22:30 Ondansetron HCl (Zofran Inj) 4 mg Q6H PRN IV NAUSEA AND/OR VOMITING; Start at 22:30 Pantoprazole (Protonix Tab) 40 mg DAILY@06 PO Last administered on 09/17/16 06 :51; Admin Dose 40 MG; Start 09/07/16 at 06:00 Acetaminophen (Tylenol Tab) 650 mg Q6H PRN PO PAIN AND OR ELEVATED TEMP Last administered on 09/19/16 20:58; Admin Dose 650 MG; Start 09/06/16 at 22:30 Gabapentin (Neurontin) 100 mg BID PO Last administered on 09/22/16 08:07; Admin Dose 100 MG; Start 09/21/16 at 09:00 Enoxaparin Sodium (Lovenox) 80 mg Q12 SC Last administered on 09/22/16 08:07; Admin Dose 80 MG; Start 09/21/16 at 21:00 FRANCISCO GILMORE MD Sep 22, 2016 16:54
[2016-09-22] MEDS ORDERED: CALCIUM GLUCONATE 10% 3 GM in SOD CHLORIDE 0.9% 100 ML IVPB ONE (18:30)
[2016-09-22 20:00] VITALS: BP 128/85; PULSE 99; RESP 20
[2016-09-22] MEDS ORDERED: ALBUMIN HUMAN 25% 100 ML INJ IV SCH (22:30)
[2016-09-22] MEDS ORDERED: ALBUMIN HUMAN 5% 500ML INJ CATHETER ONE (23:00)
[2016-09-23] MEDS: HYDROCODONE/APAP (5/325) TAB PO PRN ×2 (02:07→19:00)
[2016-09-23] MEDS: PANTOPRAZOLE (EC) 40 MG TAB PO SCH (06:00)
[2016-09-23 07:30] VITALS: BP 138/89; RESP 18
[2016-09-23 07:36] LABS: ADD SCAN DIFF NO
[2016-09-23 07:41] LABS: BASOPHILS % 0.4 % (0.0-2.0); EOSINOPHILS # 0.2 10^3/ul (0.0-0.5); EOSINOPHILS % 2.7 % (0.0-7.0); HEMATOCRIT 47.9 % (42.0-52.0); HEMOGLOBIN 15.8 g/dl (14.0-18.0); LYMPHOCYTES # 2.5 10^3/ul (0.8-2.9); LYMPHOCYTES % 32.1 % (15.0-51.0); MEAN CORPUSCULAR VOLUME 94.1 fl (82.0-101.0); MONOCYTE # 0.6 10^3/ul (0.3-0.9); MONOCYTES % 7.9 % (0.0-11.0); NEUTROPHIL # 4.4 10^3/ul (1.6-7.5); NEUTROPHILS % 56.5 % (39.0-77.0); PLATELET COUNT 237 10^3/UL (140-415); RED BLOOD COUNT 5.09 10^6/ul (4.70-6.10); WHITE BLOOD COUNT 7.8 10^3/ul (4.8-10.8)
[2016-09-23] MEDS ORDERED: CALCIUM GLUCONATE 10% 3 GM in SOD CHLORIDE 0.9% 100 ML IVPB ONE (08:00)
[2016-09-23] MEDS ORDERED: ALBUMIN HUMAN 5% 500ML INJ CATHETER SCH (08:00)
[2016-09-23 08:09] LABS: ALBUMIN 3.9 g/dl (3.3-4.9)
[2016-09-23 08:11] LABS: BILIRUBIN,INDIRECT 1.5 mg/dl (0-1.1); BILIRUBIN,TOTAL 1.5 mg/dl (0.2-1.3); CREATININE 0.61 mg/dl (0.61-1.24)
[2016-09-23 08:12] LABS: ALBUMIN/GLOBULIN RATIO 1.85; CALCIUM 9.2 mg/dl (8.4-10.2); PHOSPHORUS 4.2 mg/dl (2.5-4.9)
[2016-09-23 08:13] LABS: MAGNESIUM 1.9 mg/dl (1.7-2.5)
[2016-09-23] MEDS: GABAPENTIN 100 MG CAP PO SCH ×2 (08:40→20:29)
[2016-09-23] MEDS: ENOXAPARIN 100 MG/ML SYG SC SCH ×2 (08:43→20:31)
[2016-09-23 08:44] VITALS: BP 138/89; PULSE 100; RESP 20
--- NOTE | 2016-09-23 08:55 | CONS ---
DATE OF ADMISSION: 09/06/2016 DATE OF CONSULTATION: REFERRING PHYSICIAN: Dr. 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 The patient had IVIG with improvement as well as acute rehab; however, the patient is still disabled and cannot keep his balance for which I recommend for him to have plasmapheresis. I counse led the family about it in which they agree to have the plasmapheresis. MEDICATIONS: As above. PHYSICAL EXAMINATION: GENERAL: Today, the patient is alert, awake, oriented for time, place, and person. Normal speech a nd normal language. CRANIAL NERVES: Cranial nerve II: Pupils equal on both sides, reactive to light. Cranial nerves I II, IV, and : Extraocular muscles intact. No nystagmus. Cranial nerve V: Equal sensation to fa ce. Cranial nerve VII: Symmetrical face. Cranial nerve VIII: Decreased hearing bilaterally. [employer] nial nerves IX and X: Elevates palate. Cranial nerve XI: Elevates shoulder 5/5. Cranial nerve XI I: With straight tongue. MOTOR: Decreased right upper and lower extremities. Sensation decreased for glove and sock area fo r light touch and temperature. COORDINATION: [id number]-nk-jqif test intact. HEART: Regular rate and rhythm. LUNGS: Equal breath sounds. ABDOMEN: Soft, relaxed, nondistended, nontender. ASSESSMENT AND PLAN 1. The patient is a 55-year-old male with underlying Guillain-[place]. We will follow up the patient with nerve conduction study, EMG, and we ordered for him plasmapheresis and counseled the family ab out it. 2. Keep the patient under physical therapy and occupation therapy acute rehabilitation. 3. Gait and balance. We will keep the patient under fall precaution. Dictated By: CANDICE BATISTA/SHOAIB Conf#: [id number] DID#: [id number]
--- NOTE | 2016-09-23 13:53 | CONS ---
Date/Time of Note Date/Time of Note DATE: 09/23/16 TIME: 13:51 Assessment/Plan Assessment/Plan Chief Complaint/Hosp Course 1. Guillaian- BArre syndrome s/p ivig now on plamapheresis 2. Quadriparesis, better still weak 3 s/p ivig dvt leg plan pt and family agreeing for plasmapheresis about plasmapheresis, on lovenox for dvt plasmapheresis Problems: Consultation Date/Type/Reason Admit Date/Time Sep 06, 2016 at 20:13 Type of Consultation: renal 24 HR Interval Summary Constitutional: other (s/p pf) Exam/Review of Systems Vital Signs Vitals Vital Signs Date Time Temp Pulse Resp B/P Pulse Ox O2 Delivery O2 Flow Rate FiO2 09/23/16 08:44 98.0 100 20 138/89 95 Room Air Intake and Output 09/22/16 09/22/16 09/23/16 15:00 23:00 07:00 Intake Total 240 ml Balance 240 ml Exam Respiratory: clear to auscultation Cardiovascular: regular rate and rhythm Gastrointestinal: soft Musculoskeletal: nl extremities to inspection Extremities: normal pulses Neurological: EDGE POLISHER II-XII intact, nl mental status, other (weakness) Results Result Diagram: 09/23/16 0600 09/23/16 0600 Results 24 hrs Laboratory Tests Test 09/23/16 06:00 White Blood Count 7.8 Red Blood Count 5.09 Hemoglobin 15.8 Hematocrit 47.9 Mean Corpuscular Volume 94.1 Mean Corpuscular Hemoglobin 31.0 Mean Corpuscular Hemoglobin Concent 33.0 Red Cell Distribution Width 13.0 Platelet Count 237 Mean Platelet Volume 9.0 Neutrophils % 56.5 Lymphocytes % 32.1 Monocytes % 7.9 Eosinophils % 2.7 Basophils % 0.4 Nucleated Red Blood Cells % 0.0 Neutrophils # 4.4 Lymphocytes # 2.5 Monocytes # 0.6 Eosinophils # 0.2 Basophils # 0.0 Nucleated Red Blood Cells # 0.0 Sodium Level 137 Potassium Level 4.0 Chloride Level 102 Carbon Dioxide Level 25 Anion Gap 14 Blood Urea Nitrogen 15 Creatinine 0.61 Glucose Level 104 Calcium Level 9.2 Phosphorus Level 4.2 Magnesium Level 1.9 Total Bilirubin 1.5 H Direct Bilirubin 0.00 Indirect Bilirubin 1.5 H Aspartate Amino Transf (AST/SGOT) 23 Alanine Aminotransferase (ALT/SGPT) 28 Alkaline Phosphatase 37 #L Total Protein 6.0 #L Albumin 3.9 Globulin 2.10 Albumin/Globulin Ratio 1.85 Medications Medications Current Medications Docusate Sodium (Colace) 100 mg Q12H PRN PO CONSTIPATION; Start 09/06/16 at 22: 30 Acetaminophen/ Hydrocodone Bitart ([place] (5/325)) 1 tab Q6H PRN PO PAIN Last administered on 09/23/16 02:07; Admin Dose 1 TAB; Start 09/06/16 at 22:30 Ondansetron HCl (Zofran Inj) 4 mg Q6H PRN IV NAUSEA AND/OR VOMITING; Start at 22:30 Pantoprazole (Protonix Tab) 40 mg DAILY@06 PO Last administered on 09/17/16 06 :51; Admin Dose 40 MG; Start 09/07/16 at 06:00 Acetaminophen (Tylenol Tab) 650 mg Q6H PRN PO PAIN AND OR ELEVATED TEMP Last administered on 09/19/16 20:58; Admin Dose 650 MG; Start 09/06/16 at 22:30 Gabapentin (Neurontin) 100 mg BID PO Last administered on 09/23/16 08:40; Admin Dose 100 MG; Start 09/21/16 at 09:00 Enoxaparin Sodium (Lovenox) 80 mg Q12 SC Last administered on 09/23/16 08:43; Admin Dose 80 MG; Start 09/21/16 at 21:00 Albumin Human ([place]) 3,000 ml ONCE CATHETER ; Start 09/23/16 at 08:00; Stop at 17:00 FRANCISCO GILMORE MD Sep 23, 2016 13:53
[2016-09-23 19:10] VITALS: BP 135/82; RESP 20
--- NOTE | 2016-09-24 | PN ---
DATE: REFERRING PHYSICIAN: Dr. Gilmore HISTORY OF PRESENT ILLNESS: The patient is a 55-year-old with generalized weakness, bilateral upper and lower extremities, status post Guillan-[place] syndrome. 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 However, the patient had also acute rehab, p rogressing with improvement; however, the patient is still weak, requiring the patient to be evaluat ed for plasmapheresis and nerve conduction study. PHYSICAL EXAMINATION: GENERAL: Today, the patient is alert, awake, oriented for time, place, and person. Normal speech a nd normal language. CRANIAL NERVES: Cranial nerve II: Pupils equal on both sides, reactive to light. Cranial nerves I II, IV, and : Extraocular muscles intact without nystagmus. Cranial nerve V: Equal sensation to face. Cranial nerve VII: Symmetrical face. Cranial nerve VIII: Decreased hearing bilaterally. Cranial nerves IX, X: Elevates palate. Cranial nerve XI: Elevates shoulder 5/5. Cranial nerve XI I: With straight tongue. 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 Decreased right bilateral upper and lower extremity, which is recorded 4/5. SENSATION: Decreased for glove and sock area for light touch and temperature. COORDINATION: Rxqjym-ld-xmtp test intact. HEART: Regular rate and rhythm. LUNGS: Equal breath sounds. ABDOMEN: Soft, relaxed, nondistended, no tenderness. ASSESSMENT AND PLAN 1. The patient is a 55-year-old with underlying Guillan-[place]. Considering for plasmapheresis if t he family accepts it. 2. Will keep the patient under physical ____ patient at acute rehab. 3. Gait difficulty with gait evaluation and balance. Keep the patient under fall precautions. Dictated By: CANDICE VELA MD NA/NTS Conf#: [id number] DID#: [id number] CC: FRANCISCO GILMORE MD; JERAD PERKINS MD;*End*
[2016-09-24] MEDS: PANTOPRAZOLE (EC) 40 MG TAB PO SCH (06:00)
[2016-09-24 06:23] LABS: ADD SCAN DIFF NO
[2016-09-24 06:30] LABS: BASOPHILS % 0.4 % (0.0-2.0); EOSINOPHILS # 0.2 10^3/ul (0.0-0.5); EOSINOPHILS % 2.3 % (0.0-7.0); HEMATOCRIT 50.8 % (42.0-52.0); LYMPHOCYTES # 2.3 10^3/ul (0.8-2.9); LYMPHOCYTES % 22.7 % (15.0-51.0); MEAN CORPUSCULAR HGB CONC 33.5 g/dl (32.0-37.0); MEAN CORPUSCULAR VOLUME 92.5 fl (82.0-101.0); MONOCYTE # 0.8 10^3/ul (0.3-0.9); MONOCYTES % 7.8 % (0.0-11.0); NEUTROPHIL # 6.6 10^3/ul (1.6-7.5); NEUTROPHILS % 66.3 % (39.0-77.0); PLATELET COUNT 221 10^3/UL (140-415); RED BLOOD COUNT 5.49 10^6/ul (4.70-6.10); RED CELL DISTRIBUTION WIDTH 13.2 % (11.5-14.5); WHITE BLOOD COUNT 9.9 10^3/ul (4.8-10.8)
[2016-09-24 06:51] LABS: ALBUMIN 3.5 g/dl (3.3-4.9)
[2016-09-24 06:54] LABS: CREATININE 0.59 mg/dl (0.61-1.24)
[2016-09-24 06:55] LABS: ALBUMIN/GLOBULIN RATIO 2.05; CALCIUM 9.1 mg/dl (8.4-10.2); PHOSPHORUS 3.9 mg/dl (2.5-4.9); TOTAL PROTEIN 5.2 g/dl (6.1-8.1)
[2016-09-24 07:30] VITALS: BP 127/80; RESP 18
[2016-09-24] MEDS: GABAPENTIN 100 MG CAP PO SCH ×2 (08:33→20:45)
[2016-09-24] MEDS: ENOXAPARIN 100 MG/ML SYG SC SCH ×2 (08:35→20:48)
[2016-09-24 09:30] VITALS: BP 98/66; PULSE 53; RESP 18
--- NOTE | 2016-09-24 11:58 | CONS ---
Date/Time of Note Date/Time of Note DATE: 09/24/16 TIME: 11:56 Consult Date/Type/Reason Admit Date/Time Sep 06, 2016 at 20:13 Type of Consultation: renal Subjective patient does not want plasmapheresis RN reports patient with orthostatic hypotension this morning Objective Vital Signs Date Time Temp Pulse Resp B/P Pulse Ox O2 Delivery O2 Flow Rate FiO2 09/24/16 09:30 53 18 98/66 98 Room Air 09/24/16 07:30 98.0 Intake and Output 09/23/16 09/23/16 09/24/16 15:00 23:00 07:00 Intake Total 360 ml Balance 360 ml INTERDISCIPLINARY TEAM CONFERENCE BOWEL- Cont BLADDER-Cont SKIN- intact OT- DRESSING-cga BATHING-cga TOILETING-mod PT- BED MOBILITY-min TRANSFERS-min/cga AMBULATION-min/cga 40 feet A/P- Interdisciplinary team conference held today. Please see interdisciplinary sheet. Working toward d.cJoshua on 09/26 with post discharge follow up of physical therapy, occupational therapy and nursing Results/Medications Result Diagram: 09/24/16 0548 09/24/16 0548 Results 24 hrs Laboratory Tests Test 09/23/16 14:01 09/24/16 05:48 Magnesium Level 1.9 White Blood Count 9.9 # Red Blood Count 5.49 Hemoglobin 17.0 Hematocrit 50.8 Mean Corpuscular Volume 92.5 Mean Corpuscular Hemoglobin 31.0 Mean Corpuscular Hemoglobin Concent 33.5 Red Cell Distribution Width 13.2 Platelet Count 221 Mean Platelet Volume 9.0 Neutrophils % 66.3 Lymphocytes % 22.7 Monocytes % 7.8 Eosinophils % 2.3 Basophils % 0.4 Nucleated Red Blood Cells % 0.0 Neutrophils # 6.6 Lymphocytes # 2.3 Monocytes # 0.8 Eosinophils # 0.2 Basophils # 0.0 Nucleated Red Blood Cells # 0.0 Sodium Level 140 Potassium Level 4.0 Chloride Level 106 Carbon Dioxide Level 23 Anion Gap 15 Blood Urea Nitrogen 13 Creatinine 0.59 L Glucose Level 109 Calcium Level 9.1 Phosphorus Level 3.9 Total Bilirubin 1.0 Direct Bilirubin 0.00 Indirect Bilirubin 1.0 Aspartate Amino Transf (AST/SGOT) 25 Alanine Aminotransferase (ALT/SGPT) 31 Alkaline Phosphatase 29 L Total Protein 5.2 L Albumin 3.5 Globulin 1.70 Albumin/Globulin Ratio 2.05 Medications Current Medications Docusate Sodium (Colace) 100 mg Q12H PRN PO CONSTIPATION; Start 09/06/16 at 22: 30 Acetaminophen/ Hydrocodone Bitart ([place] (5/325)) 1 tab Q6H PRN PO PAIN Last administered on 09/23/16 19:00; Admin Dose 1 TAB; Start 09/06/16 at 22:30 Ondansetron HCl (Zofran Inj) 4 mg Q6H PRN IV NAUSEA AND/OR VOMITING; Start at 22:30 Pantoprazole (Protonix Tab) 40 mg DAILY@06 PO Last administered on 09/17/16 06 :51; Admin Dose 40 MG; Start 09/07/16 at 06:00 Acetaminophen (Tylenol Tab) 650 mg Q6H PRN PO PAIN AND OR ELEVATED TEMP Last administered on 09/19/16 20:58; Admin Dose 650 MG; Start 09/06/16 at 22:30 Gabapentin (Neurontin) 100 mg BID PO Last administered on 09/24/16 08:33; Admin Dose 100 MG; Start 09/21/16 at 09:00 Enoxaparin Sodium (Lovenox) 80 mg Q12 SC Last administered on 09/24/16 08:35; Admin Dose 80 MG; Start 09/21/16 at 21:00 JERAD PERKINS MD Sep 24, 2016 11:58
--- NOTE | 2016-09-24 17:21 | CONS ---
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 Quadriparesis, better still weak 3 s/p ivig dvt leg plan pt refused plasmapheresis on lovenox for dvt Problems: Consultation Date/Type/Reason Admit Date/Time Sep 06, 2016 at 20:13 Type of Consultation: renal 24 HR Interval Summary Constitutional: other (pt refusing plasmapheresis want cath out hd d/w pt), No diaphoresis, No febrile Exam/Review of Systems Vital Signs Vitals Vital Signs Date Time Temp Pulse Resp B/P Pulse Ox O2 Delivery O2 Flow Rate FiO2 09/24/16 09:30 53 18 98/66 98 Room Air 09/24/16 07:30 98.0 Intake and Output 09/23/16 09/23/16 09/24/16 15:00 23:00 07:00 Intake Total 360 ml Balance 360 ml Exam Neck: supple Respiratory: clear to auscultation Cardiovascular: regular rate and rhythm Gastrointestinal: soft Extremities: normal pulses Neurological: TEST DEVELOPER II-XII intact, nl mental status, nl speech, other (weakness+) Results Result Diagram: 09/24/16 0548 09/24/16 0548 Results 24 hrs Laboratory Tests Test 09/24/16 05:48 White Blood Count 9.9 # Red Blood Count 5.49 Hemoglobin 17.0 Hematocrit 50.8 Mean Corpuscular Volume 92.5 Mean Corpuscular Hemoglobin 31.0 Mean Corpuscular Hemoglobin Concent 33.5 Red Cell Distribution Width 13.2 Platelet Count 221 Mean Platelet Volume 9.0 Neutrophils % 66.3 Lymphocytes % 22.7 Monocytes % 7.8 Eosinophils % 2.3 Basophils % 0.4 Nucleated Red Blood Cells % 0.0 Neutrophils # 6.6 Lymphocytes # 2.3 Monocytes # 0.8 Eosinophils # 0.2 Basophils # 0.0 Nucleated Red Blood Cells # 0.0 Sodium Level 140 Potassium Level 4.0 Chloride Level 106 Carbon Dioxide Level 23 Anion Gap 15 Blood Urea Nitrogen 13 Creatinine 0.59 L Glucose Level 109 Calcium Level 9.1 Phosphorus Level 3.9 Total Bilirubin 1.0 Direct Bilirubin 0.00 Indirect Bilirubin 1.0 Aspartate Amino Transf (AST/SGOT) 25 Alanine Aminotransferase (ALT/SGPT) 31 Alkaline Phosphatase 29 L Total Protein 5.2 L Albumin 3.5 Globulin 1.70 Albumin/Globulin Ratio 2.05 Medications Medications Current Medications Docusate Sodium (Colace) 100 mg Q12H PRN PO CONSTIPATION; Start 09/06/16 at 22: 30 Acetaminophen/ Hydrocodone Bitart ([place] (5/325)) 1 tab Q6H PRN PO PAIN Last administered on 09/23/16 19:00; Admin Dose 1 TAB; Start 09/06/16 at 22:30 Ondansetron HCl (Zofran Inj) 4 mg Q6H PRN IV NAUSEA AND/OR VOMITING; Start at 22:30 Pantoprazole (Protonix Tab) 40 mg DAILY@06 PO Last administered on 09/17/16 06 :51; Admin Dose 40 MG; Start 09/07/16 at 06:00 Acetaminophen (Tylenol Tab) 650 mg Q6H PRN PO PAIN AND OR ELEVATED TEMP Last administered on 09/19/16 20:58; Admin Dose 650 MG; Start 09/06/16 at 22:30 Gabapentin (Neurontin) 100 mg BID PO Last administered on 09/24/16 08:33; Admin Dose 100 MG; Start 09/21/16 at 09:00 Enoxaparin Sodium (Lovenox) 80 mg Q12 SC Last administered on 09/24/16 08:35; Admin Dose 80 MG; Start 09/21/16 at 21:00 FRANCISCO GILMORE MD Sep 24, 2016 17:21
[2016-09-24] MEDS: HYDROCODONE/APAP (5/325) TAB PO PRN (18:15)
[2016-09-24 20:01] VITALS: BP 112/78; RESP 20
[2016-09-25] MEDS: PANTOPRAZOLE (EC) 40 MG TAB PO SCH (06:45)
[2016-09-25 07:31] VITALS: BP 105/73; RESP 18
[2016-09-25] MEDS: ENOXAPARIN 100 MG/ML SYG SC SCH (09:00)
[2016-09-25] MEDS: HYDROCODONE/APAP (5/325) TAB PO PRN ×2 (09:11→21:23)
[2016-09-25] MEDS: GABAPENTIN 100 MG CAP PO SCH ×2 (09:11→21:23)
--- NOTE | 2016-09-25 12:14 | CONS ---
Date/Time of Note Date/Time of Note DATE: 09/25/16 TIME: 12:13 Consult Date/Type/Reason Admit Date/Time Sep 06, 2016 at 20:13 Type of Consultation: renal Subjective Looking forward to dc home Objective pulm-cta abd-soft min transfer Vital Signs Date Time Temp Pulse Resp B/P Pulse Ox O2 Delivery O2 Flow Rate FiO2 09/25/16 07:31 98.4 110 18 105/73 99 09/24/16 09:30 Room Air Intake and Output 09/24/16 09/24/16 09/25/16 15:00 23:00 07:00 Intake Total 360 ml 1200 ml Balance 360 ml 1200 ml Results/Medications Result Diagram: 09/24/16 0548 09/24/16 0548 Medications Current Medications Docusate Sodium (Colace) 100 mg Q12H PRN PO CONSTIPATION; Start 09/06/16 at 22: 30 Acetaminophen/ Hydrocodone Bitart ([place] (5/325)) 1 tab Q6H PRN PO PAIN Last administered on 09/25/16 09:11; Admin Dose 1 TAB; Start 09/06/16 at 22:30 Ondansetron HCl (Zofran Inj) 4 mg Q6H PRN IV NAUSEA AND/OR VOMITING; Start at 22:30 Pantoprazole (Protonix Tab) 40 mg DAILY@06 PO Last administered on 09/25/16 06 :45; Admin Dose 40 MG; Start 09/07/16 at 06:00 Acetaminophen (Tylenol Tab) 650 mg Q6H PRN PO PAIN AND OR ELEVATED TEMP Last administered on 09/19/16 20:58; Admin Dose 650 MG; Start 09/06/16 at 22:30 Gabapentin (Neurontin) 100 mg BID PO Last administered on 09/25/16 09:11; Admin Dose 100 MG; Start 09/21/16 at 09:00 Enoxaparin Sodium (Lovenox) 80 mg Q12 SC Last administered on 09/24/16 20:48; Admin Dose 80 MG; Start 09/21/16 at 21:00 Assessment/Plan Additional Assessment/Plan Rehab- Guillain-Hackberry syndrome. Working toward dc home tomorrow RLE DVT- anticoag Moderate cervical degenerative disk disease-stable JERAD PERKINS MD Sep 25, 2016 12:14
[2016-09-25] MEDS: APIXABAN 5 MG TABLET PO SCH ×2 (14:10→22:07)
--- NOTE | 2016-09-25 18:18 | CONS ---
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 Quadriparesis, better still weak 3 s/p ivig dvt leg plan pt refused plasmapheresis eliquis dc hd cath Problems: Consultation Date/Type/Reason Admit Date/Time Sep 06, 2016 at 20:13 Type of Consultation: renal 24 HR Interval Summary Constitutional: no complaints Exam/Review of Systems Vital Signs Vitals Vital Signs Date Time Temp Pulse Resp B/P Pulse Ox O2 Delivery O2 Flow Rate FiO2 09/25/16 07:31 98.4 110 18 105/73 99 09/24/16 09:30 Room Air Intake and Output 09/24/16 09/24/16 09/25/16 15:00 23:00 07:00 Intake Total 360 ml 1200 ml Balance 360 ml 1200 ml Exam Respiratory: clear to auscultation Cardiovascular: regular rate and rhythm Gastrointestinal: bowel sounds (+), soft, No tender Extremities: normal pulses Neurological: 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 DESIGNER II-XII 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 Results Result Diagram: 09/24/1648 09/24/16 0548 Medications Medications Current Medications Docusate Sodium (Colace) 100 mg Q12H PRN PO CONSTIPATION; Start 09/06/16 at 22: 30 Acetaminophen/ Hydrocodone Bitart ([place] (5/325)) 1 tab Q6H PRN PO PAIN Last administered on 09/25/16 09:11; Admin Dose 1 TAB; Start 09/06/16 at 22:30 Ondansetron HCl (Zofran Inj) 4 mg Q6H PRN IV NAUSEA AND/OR VOMITING; Start at 22:30 Pantoprazole (Protonix Tab) 40 mg DAILY@06 PO Last administered on 09/25/16 06 :45; Admin Dose 40 MG; Start 09/07/16 at 06:00 Acetaminophen (Tylenol Tab) 650 mg Q6H PRN PO PAIN AND OR ELEVATED TEMP Last administered on 09/19/16 20:58; Admin Dose 650 MG; Start 09/06/16 at 22:30 Gabapentin (Neurontin) 100 mg BID PO Last administered on 09/25/16 09:11; Admin Dose 100 MG; Start 09/21/16 at 09:00 Apixaban (Eliquis) 5 mg BID PO Last administered on 09/25/16t 14:10; Admin Dose 5 MG; Start 09/25/16 at 13:30 FRANCISCO GILMORE MD Sep 25, 2016 18:18
[2016-09-25 20:48] VITALS: BP 109/67; RESP 18
--- NOTE | 2016-09-25 22:08 | PN ---
DATE: HISTORY OF PRESENT ILLNESS: The patient is a 55-year-old status post generalized weakness and Guill an-Hana syndrome which the patient had treatment of IVIG with improvement followed by acute rehabil itation with improvement. However, the patient is still weak, in which we recommended for him plasm apheresis, which the patient started, but refused to continue. PHYSICAL EXAMINATION: GENERAL: Today, the patient is alert, awake, oriented for time, place, person, place, and person. Normal speech and normal language. CRANIAL NERVES: Cranial nerve II: Pupils equal on both sides, reactive to light. Cranial nerves I II, IV, and : Extraocular muscles intact. No nystagmus. Cranial nerve V: Equal sensation to fa ce. Cranial nerve VII: Symmetrical face. Cranial nerve VIII: Decreased hearing bilaterally. Chess Instructor nial nerve IX, X: Elevates palate. Cranial nerve XI: Elevates shoulder 5/5. Cranial nerve XII: With straight tongue. 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 SENSATION: Decreased for glove and sock area for light touch and temperature. COORDINATION: [id number] test intact. HEART: Regular rate and rhythm. LUNGS: Equal breath sounds. ABDOMEN: Soft, relaxed, nondistended, nontender. ASSESSMENT AND PLAN: The patient is a 62-year-old with: 1. Underlying Guillan-Hana status post IVIG with improvement as well as acute rehabilitation with improvement with plasmapheresis. However, the patient could not tolerate it. 2. History of generalized weakness. Keep the patient acute rehab for more evaluation and treatment . 3. Gait difficulty. We will follow up the patient with gait, balance, and ambulation per physical medicine and rehabilitation. Again, thank you for asking me to see the patient with you. Dictated By: CANDICE VELA MD NA/NTS Conf#: [id number] DID#: [id number] CC: JERAD PERKINS MD;*End*
[2016-09-26] MEDS: PANTOPRAZOLE (EC) 40 MG TAB PO SCH (05:45)
[2016-09-26 07:20] LABS: ADD SCAN DIFF NO
[2016-09-26 07:26] LABS: HEMATOCRIT 43.3 % (42.0-52.0); HEMOGLOBIN 14.5 g/dl (14.0-18.0); MEAN CORPUSCULAR HGB CONC 33.5 g/dl (32.0-37.0); MEAN CORPUSCULAR VOLUME 92.7 fl (82.0-101.0); MEAN PLATELET VOLUME 8.7 fl (7.4-10.4); PLATELET COUNT 223 10^3/UL (140-415); RED BLOOD COUNT 4.67 10^6/ul (4.70-6.10); RED CELL DISTRIBUTION WIDTH 13.2 % (11.5-14.5); WHITE BLOOD COUNT 6.5 10^3/ul (4.8-10.8)
[2016-09-26 07:41] VITALS: BP 109/79; RESP 18
[2016-09-26] MEDS: APIXABAN 5 MG TABLET PO SCH (08:34)
[2016-09-26] MEDS: GABAPENTIN 100 MG CAP PO SCH (08:34)
[2016-09-26 10:15] LABS: EOSINOPHILS # 0.2 10^3/ul (0.0-0.5); LYMPHOCYTES # 1.6 10^3/ul (0.8-2.9); MONOCYTE # 0.5 10^3/ul (0.3-0.9); NEUTROPHIL # 4.3 10^3/ul (1.6-7.5)
[2016-09-26 10:16] LABS: PLATELET ESTIMATE PLT APPEAR ADEQUATE
--- NOTE | 2016-09-26 12:45 | QN ---
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
--- NOTE | 2016-09-26 20:48 | PN ---
DATE: The patient is a 55-year-old admitted to [facility] with quadriparesis with underl calista Guillan-[place] syndrome where the patient has weakness in both upper and lower extremities, whic h the patient had IVIG with improvement. Had also acute rehab with more improvement. We started th e patient on plasmapheresis, which the patient had ____ treatment, but the patient could not tolerat e, which the patient had maximum benefits of acute rehab with the patient discharging today. I will follow up the patient in the outpatient clinic. Again, thank you for asking me to see the patient with you. Dictated By: CANDICE VELA MD NA/NTS Conf#: [id number] DID#: [id number] CC: JERAD PERKINS MD;*End*
== END 2016-09-26 12:00 | disposition home health service (06) | DRG 94 ==
LOC: UNDOADMIN 17:19 → L-D 17:19 → VRC 20:13
PROVIDERS: ADMIT Physical Medicine & Rehabilitation; ATTEND Internal Medicine Nephrology
PROC: F07Z5ZZ Bed Mobility Treatment (ICD-10-PCS; principal; 2016-09-06)
PROC: F08Z2ZZ Grooming/Personal Hygiene Treatment (ICD-10-PCS; 2016-09-06)
DX: G61.0 Guillain-Barre syndrome (principal); G82.50 Quadriplegia, unspecified; M47.892 Other spondylosis, cervical region; M54.12 Radiculopathy, cervical region; R26.89 Other abnormalities of gait and mobility; R52 Pain, unspecified; K59.00 Constipation, unspecified; R11.0 Nausea; M50.30 Other cervical disc degeneration, unspecified cervical region; M79.661 Pain in right lower leg
CPT/HCPCS: 36556; 76942; 80053; 81003; 83735; 84100; 85025; 85610; 85730; 87081; 87086; 93971; 97110; 97112; 97116; 97150; 97163; 97167; 97530; 97535; 97542; C1752; J0610; J1644; J1650; P9045; P9047